=== PATIENT | male | born 1955 | race Caucasian/White ===

== ENCOUNTER 2018-01-28 14:29 | Inpatient (IN) | payer BC ==
[2018-01-28] MEDS ORDERED: ASPIRIN 81 MG CHEWABLE TABLETS PO ONE (14:34)
--- NOTE | 2018-01-28 14:34 | PDOC ---
History of Present Illness - General History Source: Patient Exam Limitations: No Limitations <Nathaly Manzo - Last Filed: 01/28/18 17:37> <Marcio Matt - Last Filed: 01/28/18 17:48> - General Chief Complaint: Chest Pain Stated Complaint: CHEST HEAVINESS, DIFF BREATHING Time Seen by Provider: 01/28/18 14:34 - History of Present Illness Initial Comments: 01/28/18 14:54 The patient is a 62 year old male, with a significant past medical history of hyperlipidemia, colitis, coronary artery disease, quintuple bypass (1996), who presents to the emergency department via walk-in with, sudden onset of chest heaviness and shortness of breath beginning this morning. The patient states that upon waking up this morning he has been having progressively worsening shortness of breath and wheezing. The patient also reports diarrhea (non bloody) , rhinorrhea, and productive cough beginning suddenly this morning as well. The patient states his dyspnea is made worse with exertion and while lying down. He also states he is having trouble speaking in full sentences. The patient reports increased stressors at home as he states he is retired but has been recently taking care of his who broke her ankle. The patient reports his last stress test was approx. one year ago and states he follows with his doctors at [place] on a regular basis. He denies any recent travel or surgeries. He denies any chest pain or palpitations. He denies any recent swelling or calf tenderness. He denies any recent fevers, headache or dizziness. He denies any recent nausea, vomit, or constipation. Allergies: ciprofloxacin, penicillins Past surgical history: Quintuple bypass (1996) Social History: Former smoker quit ~25 years ago. (Marcio Matt) Past History <Nathaly Manzo - Last Filed: 01/28/18 17:37> <Marcio Matt - Last Filed: 01/28/18 17:48> - Past Medical History Allergies/Adverse Reactions: Allergies Allergy/AdvReac Type Severity Reaction Status Date / Time ciprofloxacin [From Cipro] Allergy Verified 01/28/18 14:33 Penicillins Allergy Verified 01/28/18 14:33 Home Medications: Ambulatory Orders Ascorbic Acid [Vitamin C] 1,000 mg PO DAILY 01/28/18 Aspirin [Aspirin EC] 81 mg PO DAILY 01/28/18 Cholecalciferol (Vitamin D3) [Vitamin D3] 1,000 unit PO DAILY 01/28/18 Cilostazol [Pletal -] 100 mg PO DAILY 01/28/18 Cyanocobalamin (Vitamin B-12) [Vitamin B12] 1,000 mcg PO DAILY 01/28/18 Fenofibrate Nanocrystallized [Tricor] 145 mg PO DAILY 01/28/18 Glucosa Guidry 2Kcl/Chondroitin Guidry [Glucosamine & Chondroitin Cap] 2 each PO DAILY 01/28/18 Isosorbide Mononitrate [Isosorbide Mononitrate ER] 120 mg PO DAILY 01/28/18 Melatonin 10 mg PO DAILY 01/28/18 Mesalamine [Lialda] 1.2 gm PO QID 01/28/18 Metformin HCl [Metformin HCl ER] 500 mg PO QID 01/28/18 Metoprolol Succinate [Toprol Xl] 100 mg PO BID 01/28/18 Multivit-Min/FA/Lycopen/Lutein [Centrum Silver Tablet] 1 each PO DAILY 01/28/18 Paroxetine HCl [Paxil] 10 mg PO DAILY 01/28/18 Pilocarpine HCl 7.5 mg PO QID 01/28/18 Quetiapine Fumarate [Seroquel -] 500 mg PO DAILY 01/28/18 Ranolazine [Ranexa] 500 mg PO BID 01/28/18 Rosuvastatin Calcium [Crestor] 40 mg PO DAILY 01/28/18 Welchol 625 mg PO ASDIR 01/28/18 Review of Systems <Nathaly Manzo - Last Filed: 01/28/18 17:37> <Marcio Matt - Last Filed: 01/28/18 17:48> - Review of Systems Comments:: 01/28/18 14:55 GENERAL/CONSTITUTIONAL: No fever or chills. No weakness. HEAD, EYES, EARS, NOSE AND THROAT: No change in vision. No ear pain or discharge. No sore throat. CARDIOVASCULAR: (+) Shortness of breath. (+) Chest heaviness. No chest pain. No palpitations. RESPIRATORY: (+) Productive cough. (+) Wheezing. No hemoptysis. GASTROINTESTINAL: (+) Diarrhea. No nausea, vomiting, or constipation. GENITOURINARY: No dysuria, frequency, or change in urination. MUSCULOSKELETAL: No joint or muscle swelling or pain. No neck or back pain. SKIN: No rash NEUROLOGIC: No headache, vertigo, loss of consciousness, or change in strength/ sensation. ENDOCRINE: No increased thirst. No abnormal weight change. HEMATOLOGIC/LYMPHATIC: No anemia, easy bleeding, or history of blood clots. ALLERGIC/IMMUNOLOGIC: No hives or skin allergy. (Marcio Matt) *Physical Exam <Nathaly Manzo - Last Filed: 01/28/18 17:37> <Marcio Matt - Last Filed: 01/28/18 17:48> - Vital Signs Last Vital Signs Temp Pulse Resp BP Pulse Ox 98.6 F 88 28 H 166/94 88 L 01/28/18 14:30 01/28/18 14:30 01/28/18 14:30 01/28/18 14:30 01/28/18 14:30 - Physical Exam Comments: 01/28/18 15:06 GENERAL: (+) Mild respiratory distress. Awake, alert, and fully oriented. HEAD: No signs of trauma EYES: PERRLA, EOMI, sclera anicteric, conjunctiva clear ENT: (+) Hard of hearing. Auricles normal inspection, nares patent, oropharynx clear without exudates. Moist mucosa NECK: Normal ROM, supple, no lymphadenopathy, JVD, or masses LUNGS: (+) Coughing during exam. (+) Inspiratory and expiratory wheezing diffusely throughout. (+) Rhonchi diffusely throughout. HEART: Regular rate and rhythm, normal S1 and S2, no murmurs, rubs or gallops ABDOMEN: Soft, nontender, normoactive bowel sounds. No guarding, no rebound. No masses EXTREMITIES: No lower extremity edema. Normal range of motion. No clubbing or cyanosis. No cords, erythema, or tenderness NEUROLOGICAL: Cranial nerves II through XII grossly intact. Normal speech, normal gait SKIN: Warm, Dry, normal turgor, no rashes or lesions noted. (Marcio Matt) ED Treatment Course - LABORATORY CBC & Chemistry Diagram: 01/28/18 15:08 01/28/18 15:53 <Nathaly Manzo - Last Filed: 01/28/18 17:37> - LABORATORY CBC & Chemistry Diagram: 01/28/18 15:08 01/28/18 15:53 <Marcio Matt - Last Filed: 01/28/18 17:48> - ADDITIONAL ORDERS Additional order review: Laboratory Results 01/28/18 01/28/18 01/28/18 15:58 15:53 15:53 PT with INR 13.1 H INR 1.17 Sodium 136 Potassium 4.2 Chloride 105 Carbon Dioxide 28 Anion Gap 3 L BUN 18 Creatinine 1.0 Creat Clearance w eGFR > 60 Random Glucose 124 H Calcium 8.8 Magnesium Total Bilirubin 0.5 AST 35 ALT 34 Alkaline Phosphatase 39 Troponin I 0.10 H B-Natriuretic Peptide 248.74 H Total Protein 7.8 Albumin 4.2 01/28/18 01/28/18 01/28/18 15:08 15:08 15:08 PT with INR Cancelled INR Cancelled Sodium Cancelled Potassium Cancelled Chloride Cancelled Carbon Dioxide Cancelled Anion Gap Cancelled BUN Cancelled Creatinine Cancelled Creat Clearance w eGFR Cancelled Random Glucose Cancelled Calcium Cancelled Magnesium Cancelled Total Bilirubin Cancelled AST Cancelled ALT Cancelled Alkaline Phosphatase Cancelled Troponin I Cancelled B-Natriuretic Peptide Cancelled Total Protein Cancelled Albumin Cancelled 01/28/18 15:08 RBC 4.78 MCV 87.3 MCHC 33.7 RDW 14.4 MPV 8.2 Neutrophils % 75.3 Lymphocytes % 10.6 Monocytes % 8.5 Eosinophils % 4.3 Basophils % 1.3 - RADIOLOGY Radiograph Interpretation: 01/28/18 17:47 EXAM: CT chest without contrast HISTORY: SOB, hypoxic COMPARISON: None. FINDINGS: There is no pneumothorax. No infiltrate is seen. There is no pleural effusion. There is prior median sternotomy. There is prior CABG. Heart size is top normal. Extensive coronary artery calcification is noted. The thoracic aorta is mildly calcified and tortuous. There are scattered mediastinal lymph nodes. There is hepatic steatosis. The gallbladder is distended. Calcified gallstones are noted in the dependent portion of the gallbladder lumen. Reported by Woodrow Baltazar MD (Marcio Matt) - Medications Given in the ED: ED Medications Discontinued Medications Generic Name Dose Route Start Last Admin Trade Name Freq PRN Reason Stop Dose Admin Albuterol/Ipratropium 1 amp 01/28/18 14:42 01/28/18 14:50 Duoneb - NEB 01/28/18 14:43 1 amp ONCE ONE Administration Albuterol/Ipratropium 1 amp 01/28/18 14:43 01/28/18 14:50 Duoneb - NEB 01/28/18 14:44 1 amp ONCE ONE Administration Aspirin 162 mg 01/28/18 14:34 01/28/18 14:45 Asa - PO 01/28/18 14:35 162 mg ONCE ONE Administration Azithromycin 500 mg/ Dextrose 250 mls @ 250 mls/hr 01/28/18 16:01 01/28/18 16 :10 IVPB 01/28/18 17:00 250 mls/hr ONCE ONE Administration Methylprednisolone Sodium Succinate 125 mg 01/28/18 15:47 01/28/18 15:59 Solu-Medrol - IVPB 01/28/18 15:48 125 mg ONCE ONE Administration Medical Decision Making <Nathaly Manzo - Last Filed: 01/28/18 17:37> <Marcio Matt - Last Filed: 01/28/18 17:48> - Medical Decision Making 01/28/18 14:52 01/28/18 14:50 Mr. Cervantes is a 62-year-old male with a history of coronary artery disease status post quadruple bypass, borderline diabetes who presents emergency department with a complaint of chest heaviness, shortness of breath. Patient states he was in his usual state of health until this morning when he noticed shortness of breath, wheezing. He denies chest pain. He denies palpitations. He denies Lower extremity edema, recent travel. He is no history of asthma or COPD. States that he developed profound wheezing, had difficulty catching his breath. Patient notes that with any exertion he is short of breath, and if he lays back he is short of breath. He denies fevers or chills. Past medical history: As above Past surgical history: Medications: Please see [facility] ALLERGIES: Cipro, penicillin Social: Denies tobacco use (quit greater than 20 years ago) disease, no drug use. 01/28/18 14:52 Selected Entries 01/28/18 14:30 Temperature 98.6 F Pulse Rate 88 Respiratory 28 H Rate Blood Pressure 166/94 O2 Sat by Pulse 88 L Oximetry (%) Patient is notably Tae Araseli neck, hypoxic. Patient appears winded while talking. He has a cough. Regular rate and rhythm The patient has a respiratory and asked which we wheezing throughout all lung hastings No abdominal tenderness to palpation No lower extremity edema Differential diagnosis includes but is not limited to: Bronchitis, pneumonia, reactive airway disease, congestive heart failure, atypical presentation of ACS, unlikely pericarditis, unlikely pulmonary embolism Do: Labs, EKG, portable chest x-ray, consider CT scan. Will give duo nebs, consider Solu-Medrol if this is not heart failure. If heart failure Will give Lasix. Anticipate admission EKG: Sinus rhythm, rate of 80 bpm, axis is normal, intervals are normal, there is a right bundle branch block There is no old EKG for comparison as this patient is treated at [place] 01/28/18 15:14 Pt s/p 1 neb Breathing re assessed Pt has inspiratory and expiratory wheezing 01/28/18 16:10 Patient states he feels much better after his nebs. He continues to have rhonchi, faint expiratory wheezing. Would like to CT. He cannot give IV contrast as patient is still actively wheezing. Will do CT without contrast to evaluate for pneumonia which is not visible on x- ray 01/28/18 16:51 Laboratory Tests 01/28/18 01/28/18 15:53 15:53 Sodium 136 Potassium 4.2 Chloride 105 BUN 18 Creatinine 1.0 Random Glucose 124 H Troponin I 0.10 H 01/28/18 17:[address] Thomas He will admit this patient Will place on Tele at [facility] Clinical impression: Bronchitis, initial presentation Reactive airways disease, initial presentation Indeterminate Troponin, initial presentation (Nathaly Manzo) 01/28/18 17:[address] Dixon at 5:33 pm. Pending call back. (Marcio Matt) *DC/Admit/Observation/Transfer - Discharge Dispostion Admit: Yes <Nathaly Manzo - Last Filed: 01/28/18 17:37> <Marcio Matt - Last Filed: 01/28/18 17:48> Diagnosis at time of Disposition: Bronchitis, Reactive airway disease - Discharge Dispostion Condition at time of disposition: Stable - Attestations Scribe Attestion: 01/28/18 15:08 Documentation prepared by Marcio Matt, acting as medical art therapist for Nathaly Manzo MD. (Marcio Matt)
[2018-01-28] MEDS ORDERED: ALBUTEROL SO4 2.5/IPRATROPIUM 0.5 INH SOL 3 ML VIAL.NEB. NEB ONE ×4 (14:42→15:18)
[2018-01-28] MEDS ORDERED: ASPIRIN 81 MG CHEWABLE TABLETS ONE (14:45)
[2018-01-28 15:16] LABS: BASO % 1.3 % (0-2.0); EOS % 4.3 % (0-4.5); HEMATOCRIT 41.7 % (35.4-49); HEMOGLOBIN 14.1 GM/dl (11.7-16.9); LYMPH % 10.6 % (8-40); MCH 29.4 pg (25.7-33.7); MCHC 33.7 g/dl (32.0-35.9); MEAN CELL VOLUME 87.3 fl (80-96); MEAN PLT VOLUME 8.2 fl (7.5-11.1); MONO % 8.5 % (3.8-10.2); NEUT % 75.3 % (42.8-82.8); PLATELET COUNT 274 K/MM3 (134-434); RBC 4.78 M/mm3 (4.00-5.60); RDW 14.4 % (11.9-15.9); WHITE BLOOD COUNT 10.5 K/mm3 (4.0-10.8)
[2018-01-28] MEDS ORDERED: methylPREDNISolone NA SUCC 125 MG/2 ML VIAL IVPB ONE (15:47)
[2018-01-28] MEDS ORDERED: methylPREDNISolone NA SUCC 125 MG/2 ML VIAL ONE (15:55)
[2018-01-28] MEDS ORDERED: AZITHROMYCIN IVPB 500 MG in DEXTROSE 5%-WATER - 250 ML IVPB ONE (16:01)
[2018-01-28] MEDS ORDERED: AZITHROMYCIN 500 MG VIAL IVPB ONE (16:02)
[2018-01-28 16:24] LABS: INR 1.17 (0.82-1.09); PROTHROMBIN TIME (PATIENT) 13.1 SEC (10.2-13.0)
[2018-01-28 16:28] LABS: ALBUMIN 4.2 g/dl (3.5-5.0); ALK PHOS 39 U/L (32-92); ANION GAP 3 (8-16); BILIRUBIN,TOTAL 0.5 mg/dl (0.2-1.0); BLOOD UREA NITROGEN 18 mg/dl (7-18); CALCIUM 8.8 mg/dl (8.4-10.2); CHLORIDE 105 mmol/L (98-107); CO2 28 mmol/L (22-28); GLUCOSE,RANDOM 124 mg/dl (74-106); POTASSIUM 4.2 mmol/L (3.5-5.1); SGOT/AST 35 U/L (10-42); SGPT/ALT 34 U/L (10-40); SODIUM 136 mmol/L (136-145); TOT PROT 7.8 g/dl (6.4-8.3)
[2018-01-28 17:43] LABS: N-TERMINAL BNP 248.74 pg/ml (5-125)
--- NOTE | 2018-01-28 18:37 | EKG ---
Test Reason : Blood Pressure : / mmHG Vent. Rate : 088 BPM Atrial Rate : 088 BPM P-R Int : 182 ms QRS Dur : 148 ms QT Int : 398 ms P-R-T Axes : 054 081 039 degrees QTc Int : 481 ms NORMAL SINUS RHYTHM RIGHT BUNDLE BRANCH BLOCK ABNORMAL ECG NO PREVIOUS ECGS AVAILABLE Confirmed by SALLIE ROSE, SATYA ([id number]) on 01/28/2018 6:36:27 PM Referred By: ORTIZ GIRARD Confirmed By:SATYA RIZO MD
[2018-01-28] MEDS: OSELTAMIVIR PHOSPHATE 75 MG CAPSULE PO SCH (23:44)
[2018-01-29 00:33] VITALS: BMI 25.4
--- NOTE | 2018-01-29 00:43 | HP ---
CHIEF COMPLAINT: SOB, wheezing PCP: None HISTORY OF PRESENT ILLNESS: The pt is a 62 year old male with a significant PMH of bypass surgery in 1996, ulcerative colitis, hyperlipidemia, bipolar disorder, pre diabetes, PAD who presented to [facility] ED complaining of SOB, cough and wheezing that started suddenly early in the morning. He states that it got worse, was associated with lightheadedness, so he decided to come to ED. He is coughing up yellow sputum. The patient states his dyspnea is made worse with exertion and while lying down. Earlier today he also had several episodes of loose, non bloody bowel movements. He also states that his daughter had flu last week. The pt denies having chest pain, palpitations, LOC. He is compliant with taking his medications, doctors appointments but he doesn't remember last time he had ECHO. he denies nausea, vomiting, fever, chills. He denies muscle pain and sore throat. ER course was notable for: (1)troponin 01 (2)AZA, Ceftriaxone (3) PAST MEDICAL HISTORY: as above PAST SURGICAL HISTORY: bypass surgery Social History: Smoking:quit 25 years ago Alcohol:no Drugs: marijuana Family History: mother:heart disease father: leukemia brothers: heart disease Allergies ciprofloxacin [From Cipro] Allergy (Verified 01/28/18 14:33) Penicillins Allergy (Verified 01/28/18 14:33) HOME MEDICATIONS: Home Medications Medication Instructions Recorded Ascorbic Acid [Vitamin C] 1,000 mg PO DAILY 01/28/18 Aspirin [Aspirin EC] 81 mg PO DAILY 01/28/18 Cholecalciferol (Vitamin D3) 1,000 unit PO DAILY 01/28/18 [Vitamin D3] Cilostazol [Pletal -] 100 mg PO DAILY 01/28/18 Cyanocobalamin (Vitamin B-12) 1,000 mcg PO DAILY 01/28/18 [Vitamin B12] Fenofibrate Nanocrystallized 145 mg PO DAILY 01/28/18 [Tricor] Glucosa Guidry 2Kcl/Chondroitin Guidry 2 each PO DAILY 01/28/18 [Glucosamine & Chondroitin Cap] Isosorbide Mononitrate [Isosorbide 120 mg PO DAILY 01/28/18 Mononitrate ER] Melatonin 10 mg PO DAILY 01/28/18 Mesalamine [Lialda] 1.2 gm PO QID 01/28/18 Metformin HCl [Metformin HCl ER] 500 mg PO QID 01/28/18 Metoprolol Succinate [Toprol Xl] 100 mg PO BID 01/28/18 Multivit-Min/FA/Lycopen/Lutein 1 each PO DAILY 01/28/18 [Centrum Silver Tablet] Paroxetine HCl [Paxil] 10 mg PO DAILY 01/28/18 Pilocarpine HCl 7.5 mg PO QID 01/28/18 Quetiapine Fumarate [Seroquel -] 500 mg PO DAILY 01/28/18 Ranolazine [Ranexa] 500 mg PO BID 01/28/18 Rosuvastatin Calcium [Crestor] 40 mg PO DAILY 01/28/18 Welchol 625 mg PO ASDIR 01/28/18 REVIEW OF SYSTEMS CONSTITUTIONAL: Absent: fever, chills, diaphoresis, generalized weakness, malaise, loss of appetite, weight change HEENT: Absent: rhinorrhea, nasal congestion, throat pain, throat swelling, difficulty swallowing CARDIOVASCULAR: Absent: chest pain, syncope, palpitations, irregular heart rate, lightheadedness , peripheral edema RESPIRATORY: wheezing,shortness of breath, dyspnea Absent: cough, with exertion, orthopnea GASTROINTESTINAL: Absent: abdominal pain, abdominal distension, nausea, vomiting, diarrhea, constipation, melena, hematochezia GENITOURINARY: Absent: dysuria, frequency, urgency, hesitancy, hematuria, flank pain, genital pain MUSCULOSKELETAL: Absent: myalgia, arthralgia, joint swelling, back pain, neck pain SKIN: Absent: rash, itching, pallor HEMATOLOGIC/IMMUNOLOGIC: Absent: easy bleeding, easy bruising, lymphadenopathy, frequent infections ENDOCRINE: Absent: unexplained weight gain, unexplained weight loss NEUROLOGIC: Absent: headache, focal weakness or paresthesias, dizziness PSYCHIATRIC: Absent: anxiety, depression, suicidal or homicidal ideation, hallucinations. PHYSICAL EXAMINATION Vital Signs - 24 hr 01/28/18 01/28/18 01/28/18 14:30 14:35 16:00 Temperature 98.6 F 98.2 F Pulse Rate 88 89 Pulse Rate [ 85 Left Apical] Respiratory 28 H 30 H Rate Blood Pressure 166/94 Blood Pressure 139/65 [Right Arm] O2 Sat by Pulse 88 L 96 97 Oximetry (%) 01/28/18 01/28/18 18:25 19:00 Temperature 98.1 F 98.2 F Pulse Rate 84 Pulse Rate [ 84 Left Apical] Respiratory 28 H 29 H Rate Blood Pressure 139/75 Blood Pressure 143/68 [Right Arm] O2 Sat by Pulse 97 Oximetry (%) GENERAL: Awake, alert, and fully oriented, in no acute distress, sitting on bed on 2 L of NC. HEAD: Normal with no signs of trauma. EYES: Pupils equal, round and reactive to light, extraocular movements intact, sclera anicteric, conjunctiva clear. EARS, NOSE, THROAT: Ears normal, nares patent, oropharynx clear without exudates. NECK: Normal range of motion, supple without lymphadenopathy, JVD, or masses. LUNGS: Breath sounds equal, occasional wheezes bilaterally, rhonchi, no crackles. No accessory muscle use. HEART: Regular rate and rhythm, normal S1 and S2 without murmur, rub or gallop. ABDOMEN: Soft, nontender, not distended, normoactive bowel sounds, no guarding, no rebound, no masses. MUSCULOSKELETAL: Normal range of motion at all joints. No bony deformities or tenderness. No CVA tenderness. UPPER EXTREMITIES: 2+ pulses, warm, no cyanosis. No clubbing. No peripheral edema. LOWER EXTREMITIES: 2+ pulses, warm. No calf tenderness. No peripheral edema. NEUROLOGICAL: Normal speech, no facial asymmetry., tremor in upper extremities. PSYCHIATRIC: Cooperative. Good eye contact. Anxious. SKIN: Warm, dry, normal turgor, no rashes or lesions noted. Laboratory Results - last 24 hr 01/28/18 01/28/18 01/28/18 15:08 15:08 15:08 WBC 10.5 RBC 4.78 Hgb 14.1 Hct 41.7 MCV 87.3 MCH 29.4 MCHC 33.7 RDW 14.4 Plt Count 274 MPV 8.2 Neutrophils % 75.3 Lymphocytes % 10.6 Monocytes % 8.5 Eosinophils % 4.3 Basophils % 1.3 PT with INR Cancelled INR Cancelled Sodium Cancelled Potassium Cancelled Chloride Cancelled Carbon Dioxide Cancelled Anion Gap Cancelled BUN Cancelled Creatinine Cancelled Creat Clearance w eGFR Cancelled Random Glucose Cancelled Lactic Acid Calcium Cancelled Magnesium Cancelled Total Bilirubin Cancelled AST Cancelled ALT Cancelled Alkaline Phosphatase Cancelled Troponin I B-Natriuretic Peptide Cancelled Total Protein Cancelled Albumin Cancelled 01/28/18 01/28/18 01/28/18 15:08 15:30 15:53 WBC RBC Hgb Hct MCV MCH MCHC RDW Plt Count MPV Neutrophils % Lymphocytes % Monocytes % Eosinophils % Basophils % PT with INR INR Sodium 136 Potassium 4.2 Chloride 105 Carbon Dioxide 28 Anion Gap 3 L BUN 18 Creatinine 1.0 Creat Clearance w eGFR > 60 Random Glucose 124 H Lactic Acid 2.0 Calcium 8.8 Magnesium Total Bilirubin 0.5 AST 35 ALT 34 Alkaline Phosphatase 39 Troponin I Cancelled B-Natriuretic Peptide 248.74 H Total Protein 7.8 Albumin 4.2 01/28/18 01/28/18 15:53 15:58 WBC RBC Hgb Hct MCV MCH MCHC RDW Plt Count MPV Neutrophils % Lymphocytes % Monocytes % Eosinophils % Basophils % PT with INR 13.1 H INR 1.17 Sodium Potassium Chloride Carbon Dioxide Anion Gap BUN Creatinine Creat Clearance w eGFR Random Glucose Lactic Acid Calcium Magnesium Total Bilirubin AST ALT Alkaline Phosphatase Troponin I 0.10 H B-Natriuretic Peptide Total Protein Albumin ASSESSMENT/PLAN: The pt is a 62 year old male with a significant PMH of bypass surgery in 1996, ulcerative colitis, hyperlipidemia, bipolar disorder, pre diabetes who presented to [facility] ED complaining of SOB, cough and wheezing that started suddenly early in the morning. He is admitted to tele. SOB and wheezing: -possibly URI, bronchitis, pneumonia but ACS, CHF exacerbation need to be rule out -CT negative for acute pathology, infiltrates -flu swab -Legionella urine ag -cont Azithromycin started in ED -Tamiflu -oxygen supplementation, ASA given in ED -repeated EKG didn't revealed any changes -f/u troponins -cardiac monitoring -solu medrol 125 mg given in ED, no need to continue -ECHO ordered, no fluids ordered -Dr Dixon-Eyelet Riveter consulted -HEART score 4 CAD: continue home meds: Isosorbide mononitrate, Ranexa, ASA, Metoprolol HDL: -continue Crestor Bipolar disease: -cont home meds PAD: -cont Cilostazol pre diabetes: -HgA1c ordered -f/u sugars -hold Metformin F/E/N: no/no changes/low Na DVT PPX: heparin sq and scds Dispo: tele Problem List - Problem (1) CAD (coronary artery disease) Code(s): I25.10 - ATHSCL HEART DISEASE OF [place] CORONARY ARTERY W/O ANG PCTRS (2) Dyslipidemia (high LDL; low HDL) Code(s): E78.5 - HYPERLIPIDEMIA, UNSPECIFIED (3) PAD (peripheral artery disease) Code(s): I73.9 - PERIPHERAL VASCULAR DISEASE, UNSPECIFIED (4) Bronchitis Code(s): J40 - BRONCHITIS, NOT SPECIFIED ACUTE OR CHRONIC (5) Reactive airway disease Code(s): J45.909 - UNSPECIFIED ASTHMA, UNCOMPLICATED Visit type - Emergency Visit Emergency Visit: Yes ED Registration Date: 01/28/18 Care time: The patient presented to the Emergency Department on the above date and was hospitalized for further evaluation of their emergent condition. - New Patient This patient is new to me today: Yes Date on this admission: 01/29/18 - Critical Care Critical Care patient: No Hospitalist Screening - Colonoscopy Questionnaire Colonoscopy Questionnaire: Colonoscopy Questionnaire - Patient: 50 - 75 years old and never had a screening colonoscopy: No History of colon or rectal polyps, or CA: No History of IBD, Crohn's disease or UC: Yes History of abdominal radiation therapy as a child: No - Relative: 1 with colon or rectal CA, or polyps at age 60 or younger: No Colon or rectal CA diagnosed at age 45 or younger: No Multiple relatives with colon or rectal CA: No - Outcome: Screening Result: Positive Screen
--- NOTE | 2018-01-29 03:29 | PN ---
Teaching Attending Note Name of Resident: Jamilah Zafar ATTENDING PHYSICIAN STATEMENT I saw and evaluated the patient. I reviewed the resident's note and discussed the case with the resident. I agree with the resident's findings and plan as documented. SUBJECTIVE: 62 y/o male presented with chest pain and SOB on exertion OBJECTIVE: AAOX3 s1 and S2 RRR abdomen soft non-tender lungs CTA ASSESSMENT AND PLAN: 62 y/o male patient with hx of CAD s/p CABG, HTN, DL, DM, presented with worsening exertional chest discomfort and SOB patient admitted to the observation for ACS r/o AR - patient has typical chest pain symptoms plan: admit to tele consult cardiology trend troponin trend ECG c/w aspirin c/w home medication obtain echocardiogram Angina: c/w Isosorbide mononitrate, Ranexa, ASA, Metoprolol Dyslipidemia obtain lipid profile continue with rosuvastatin obtain TSH
[2018-01-29] MEDS ORDERED: PT OWN MED DRAWER 7, Y5N ONE (09:15)
[2018-01-29] MEDS: AZITHROMYCIN IVPB 500 MG in DEXTROSE 5%-WATER - 250 ML IVPB SCH (09:42)
[2018-01-29] MEDS: RANOLAZINE E.R. 500 MG TABLET (FP) PO SCH ×2 (09:43→21:32)
[2018-01-29] MEDS: HEPARIN NA (PORCINE) 5,000 UNITS/ML 1ML VIAL SQ SCH ×2 (09:43→21:32)
[2018-01-29] MEDS: ROSUVASTATIN CA 20 MG TABLET (FP) PO SCH (09:43)
[2018-01-29] MEDS: PARoxetine HCL 10 MG TABLET (FP) PO SCH (09:43)
[2018-01-29] MEDS: ISOSORBIDE MONONITRATE 60 MG TAB.SR.24H (FP) PO SCH (09:43)
[2018-01-29] MEDS: ASPIRIN COATED 81 MG TABLET.EC PO SCH (09:44)
[2018-01-29] MEDS: OSELTAMIVIR PHOSPHATE 75 MG CAPSULE PO SCH (09:44)
[2018-01-29] MEDS ORDERED: PATIENT'S OWN MEDICATION (NON-FORMULARY) (Mesalamine [Lialda] 1.2 GM) PO SCH (10:00)
[2018-01-29 10:09] LABS: BASO % 0.3 % (0-2.0); EOS % 0.1 % (0-4.5); HEMATOCRIT 41.3 % (35.4-49); HEMOGLOBIN 13.5 GM/dL (11.7-16.9); LYMPH % 15.8 % (8-40); MCH 29.3 pg (25.7-33.7); MCHC 32.7 g/dl (32.0-35.9); MEAN CELL VOLUME 89.4 fl (80-96); MEAN PLT VOLUME 8.5 fl (7.5-11.1); MONO % 11.6 % (3.8-10.2); NEUT % 72.2 % (42.8-82.8); PLATELET COUNT 291 K/MM3 (134-434); RBC 4.62 M/mm3 (4.00-5.60); RDW 15.2 % (11.9-15.9)
[2018-01-29] MEDS ORDERED: ALBUTEROL SO4 0.083% IH SOL 2.5 MG/3 ML VIAL.NEB. NEB PRN (10:25)
--- NOTE | 2018-01-29 10:54 | CON.CARD ---
Cardiology Consult (text) - Consultation Consultation Note: cc: sob, wheeze, cough hpi: 62 m hx cad s/p cabg (1996), pci approx 2007 (no hx mi, done for cp), hld , htn, here with 1 day of sob/wheeze/cough. No cp, palps, dizzy, loc, pnd, orthopnea, le edema. Current sxs different then prior cad sxs and have improved after nebs. Sees cardio at [facility]. pmh: per hpi psh: cabg social: ex tob fam: no premature cad ros: per hpi; no nvd, ojhnson, vision changes, wt loss, gib, hematuria, dysuria meds: Home Medications Medication Instructions Recorded Ascorbic Acid [Vitamin C] 1,000 mg PO DAILY 01/28/18 Aspirin [Aspirin EC] 81 mg PO DAILY 01/28/18 Cholecalciferol (Vitamin D3) 1,000 unit PO DAILY 01/28/18 [Vitamin D3] Cilostazol [Pletal -] 100 mg PO DAILY 01/28/18 Cyanocobalamin (Vitamin B-12) 1,000 mcg PO DAILY 01/28/18 [Vitamin B12] Fenofibrate Nanocrystallized 145 mg PO DAILY 01/28/18 [Tricor] Glucosa Guidry 2Kcl/Chondroitin Guidry 2 each PO DAILY 01/28/18 [Glucosamine & Chondroitin Cap] Isosorbide Mononitrate [Isosorbide 120 mg PO DAILY 01/28/18 Mononitrate ER] Melatonin 10 mg PO DAILY 01/28/18 Mesalamine [Lialda] 1.2 gm PO QID 01/28/18 Metformin HCl [Metformin HCl ER] 500 mg PO QID 01/28/18 Metoprolol Succinate [Toprol Xl] 100 mg PO BID 01/28/18 Multivit-Min/FA/Lycopen/Lutein 1 each PO DAILY 01/28/18 [Centrum Silver Tablet] Paroxetine HCl [Paxil] 10 mg PO DAILY 01/28/18 Pilocarpine HCl 7.5 mg PO QID 01/28/18 Quetiapine Fumarate [Seroquel -] 500 mg PO DAILY 01/28/18 Ranolazine [Ranexa] 500 mg PO BID 01/28/18 Rosuvastatin Calcium [Crestor] 40 mg PO DAILY 01/28/18 Welchol 625 mg PO ASDIR 01/28/18 pe: Vital Signs Period Temp Pulse Resp BP Sys/Andino Pulse Ox Last 24 Hr 98 F-99.1 F 84-90 20-30 134-166/65-94 88-97 nad no jvd rrr s1s2 no mrg diff exp wheezes, nl eff aaox3 no le e/c/c abd nt nd pos bs no jaundice diaphoresis pos dp pt no carotid bruits Laboratory Last Values WBC 8.0 K/mm3 (4.0-10.0) 01/29/18 06:30 RBC 4.62 M/mm3 (4.00-5.60) 01/29/18 06:30 Hgb 13.5 GM/dL (11.7-16.9) 01/29/18 06:30 Hct 41.3 % (35.4-49) 01/29/18 06:30 MCV 89.4 fl (80-96) 01/29/18 06:30 MCH 29.3 pg (25.7-33.7) 01/29/18 06:30 MCHC 32.7 g/dl (32.0-35.9) 01/29/18 06:30 RDW 15.2 % (11.9-15.9) 01/29/18 06:30 Plt Count 291 K/MM3 (134-434) 01/29/18 06:30 MPV 8.5 fl (7.5-11.1) 01/29/18 06:30 Neutrophils % 72.2 % (42.8-82.8) 01/29/18 06:30 Lymphocytes % 15.8 % (8-40) 01/29/18 06:30 Monocytes % 11.6 % (3.8-10.2) H 01/29/18 06:30 Eosinophils % 0.1 % (0-4.5) 01/29/18 06:30 Basophils % 0.3 % (0-2.0) 01/29/18 06:30 PT with INR 13.1 SEC (10.2-13.0) H 01/28/18 15:58 INR 1.17 (0.82-1.09) 01/28/18 15:58 Sodium 136 mmol/L (136-145) 01/28/18 15:53 Potassium 4.2 mmol/L (3.5-5.1) 01/28/18 15:53 Chloride 105 mmol/L (98-107) 01/28/18 15:53 Carbon Dioxide 28 mmol/L (22-28) 01/28/18 15:53 Anion Gap 3 (8-16) L 01/28/18 15:53 BUN 18 mg/dl (7-18) 01/28/18 15:53 Creatinine 1.0 mg/dl (0.6-1.3) 01/28/18 15:53 Creat Clearance w eGFR > 60 (>60) 01/28/18 15:53 Random Glucose 124 mg/dl (74-106) H 01/28/18 15:53 Hemoglobin A1c % 6.3 % (4.8-6.0) H 01/29/18 06:30 Lactic Acid 2.0 mmol/L (0.0-2.0) 01/28/18 15:30 Calcium 8.8 mg/dl (8.4-10.2) 01/28/18 15:53 Magnesium Cancelled 01/28/18 15:08 Total Bilirubin 0.5 mg/dl (0.2-1.0) 01/28/18 15:53 AST 35 U/L (10-42) 01/28/18 15:53 ALT 34 U/L (10-40) 01/28/18 15:53 Alkaline Phosphatase 39 U/L (32-92) 01/28/18 15:53 Troponin I 0.11 ng/ml (0.00-0.05) H 01/28/18 23:30 B-Natriuretic Peptide 248.74 pg/ml (5-125) H 01/28/18 15:53 Total Protein 7.8 g/dl (6.4-8.3) 01/28/18 15:53 Albumin 4.2 g/dl (3.5-5.0) 01/28/18 15:53 TSH 1.33 uIU/ml (0.358-3.74) 01/29/18 06:30 cxr: clear lungs ecg: sr, rbbb tele: sr a/p: 62 m hx cad s/p cabg (1996), pci approx 2007 (no hx mi, done for cp), hld , htn, here with 1 day of sob/wheeze/cough. sob, cough, wheeze: -no signs chf. ce's negative, no signs acs. current sxs different then his prior cad sxs and have resolved with nebs so seem more URI related. -check echo cad: -as above -stable, no angina -pt reports nl stress test 1 year ago -cont home asa, bb, imdur, ranexa, statin hld: -cont statin htn: -cont home meds
[2018-01-29 11:19] LABS: ANION GAP 8 (8-16); BLOOD UREA NITROGEN 16 mg/dL (7-18); CALCIUM 9.2 mg/dL (8.5-10.1); CHLORIDE 108 mmol/L (98-107); CHOLESTEROL 117 mg/dL (50-200); CO2 26 mmol/L (21-32); CREATININE 0.9 mg/dL (0.7-1.3); GLUCOSE,RANDOM 106 mg/dL (74-106); MAGNESIUM 2.1 mg/dL (1.8-2.4); PHOSPHOROUS 2.4 mg/dL (2.5-4.9); POTASSIUM 4.4 mmol/L (3.5-5.1); SGOT/AST 27 U/L (15-37); SGPT/ALT 37 U/L (12-78); SODIUM 142 mmol/L (136-145); TRIGLYCERIDES 111 mg/dL (35-160)
[2018-01-29 11:21] LABS: ALK PHOS 45 U/L (45-117); BILIRUBIN,TOTAL 0.2 mg/dL (0.2-1.0); HDL CHOLESTEROL 46 mg/dL (40-60); LDL CHOLESTEROL (ONLY SJRH) 64 mg/dL (5-100)
[2018-01-29] MEDS: ALBUTEROL SO4 0.083% IH SOL 2.5 MG/3 ML VIAL.NEB. NEB SCH ×3 (11:28→20:30)
--- NOTE | 2018-01-29 16:15 | PN ---
Teaching Attending Note Name of Resident: Sami Warren SUBJECTIVE: Patient seen and examined. reports coming with shortness of breath and wheezing yesterday but denies having any chest pain. had improved symptoms in the ED yesterday, but recurrent wheezing today. Also with runny nose. Prior smoker, quit 25 years ago. OBJECTIVE: Vital Signs Period Temp Pulse Resp BP Sys/Andino Pulse Ox Last 24 Hr 98 F-99.1 F 74-90 20-29 113-151/68-86 97-97 Intake & Output 01/26/18 01/27/18 01/28/18 01/29/18 23:59 23:59 23:59 23:59 Intake Total 200 Output Total 200 Balance 0 Weight 187 lb 12.8 oz 185 lb 6 oz General: lying in bed in no acute distress, no use of accessory muscles of respiration Chest: positive air entry, expirotory wheezing scattered no rales Neck: no JVD appreciated Abdomen: soft, NT, Nd, positive bowel sounds CVS:S1S2 regular Extremities: no edema Home Medication List Medication Instructions Recorded Confirmed Type Ascorbic Acid [Vitamin C] 1,000 mg PO DAILY 01/28/18 01/28/18 History Aspirin [Aspirin EC] 81 mg PO DAILY 01/28/18 01/28/18 History Cholecalciferol (Vitamin D3) 1,000 unit PO DAILY 01/28/18 01/28/18 History [Vitamin D3] Cilostazol [Pletal -] 100 mg PO DAILY 01/28/18 01/28/18 History Cyanocobalamin (Vitamin B-12) 1,000 mcg PO DAILY 01/28/18 01/28/18 History [Vitamin B12] Fenofibrate Nanocrystallized 145 mg PO DAILY 01/28/18 01/28/18 History [Tricor] Glucosa Guidry 2Kcl/Chondroitin Guidry 2 each PO DAILY 01/28/18 01/28/18 History [Glucosamine & Chondroitin Cap] Isosorbide Mononitrate [Isosorbide 120 mg PO DAILY 01/28/18 01/28/18 History Mononitrate ER] Melatonin 10 mg PO DAILY 01/28/18 01/28/18 History Mesalamine [Lialda] 1.2 gm PO QID 01/28/18 01/28/18 History Metformin HCl [Metformin HCl ER] 500 mg PO QID 01/28/18 01/28/18 History Metoprolol Succinate [Toprol Xl] 100 mg PO BID 01/28/18 01/28/18 History Multivit-Min/FA/Lycopen/Lutein 1 each PO DAILY 01/28/18 01/28/18 History [Centrum Silver Tablet] Paroxetine HCl [Paxil] 10 mg PO DAILY 01/28/18 01/28/18 History Pilocarpine HCl 7.5 mg PO QID 01/28/18 01/28/18 History Quetiapine Fumarate [Seroquel -] 500 mg PO DAILY 01/28/18 01/28/18 History Ranolazine [Ranexa] 500 mg PO BID 01/28/18 01/28/18 History Rosuvastatin Calcium [Crestor] 40 mg PO DAILY 01/28/18 01/28/18 History Welchol 625 mg PO ASDIR 01/28/18 History Active Medications Generic Name Dose Route Start Last Admin Trade Name Freq PRN Reason Stop Dose Admin Albuterol Sulfate 1 amp 01/29/18 10:25 Ventolin 0.083% Nebulizer Soln - NEB Q4H PRN SHORT OF BREATH/WHEEZING Albuterol Sulfate 1 amp 01/29/18 12:00 01/29/18 11:28 Ventolin 0.083% Nebulizer Soln - NEB 1 amp RQID HAYES Administration Aspirin 81 mg 01/29/18 10:00 01/29/18 09:44 Ecotrin - PO 81 mg DAILY HAYES Administration Heparin Sodium (Porcine) 5,000 unit 01/29/18 10:00 01/29/18 09:43 Heparin - SQ 5,000 unit BID HAYES Administration Azithromycin 500 mg/ Dextrose 250 mls @ 250 mls/hr 01/29/18 10:00 01/29/18 09 :42 IVPB 250 mls/hr DAILY HAYES Administration Isosorbide Mononitrate 120 mg 01/29/18 10:00 01/29/18 09:43 Imdur - PO 120 mg DAILY HAYES Administration Metoprolol Succinate 100 mg 01/29/18 10:00 01/29/18 09:44 Toprol Xl - PO 100 mg BID HAYES Administration Non-Formulary Medication 1.2 gm 01/29/18 10:00 Mesalamine [Lialda] PO QID HAYES Oseltamivir Phosphate 75 mg 01/28/18 22:15 01/29/18 09:44 Tamiflu - PO 02/02/18 22:14 75 mg BID HAYES Administration Paroxetine HCl 10 mg 01/29/18 10:00 01/29/18 09:43 Paxil - PO 10 mg DAILY HAYES Administration Prednisone 40 mg 01/29/18 16:15 Deltasone - PO DAILY HAYES Ranolazine 500 mg 01/29/18 10:00 01/29/18 09:43 Ranexa - PO 500 mg BID HAYES Administration Rosuvastatin Calcium 40 mg 01/29/18 10:00 01/29/18 09:43 Crestor - PO 40 mg DAILY HAYES Administration Laboratory Results - last 24 hr 01/28/18 01/28/18 01/28/18 15:08 15:08 15:08 WBC RBC Hgb Hct MCV MCH MCHC RDW Plt Count MPV Neutrophils % Lymphocytes % Monocytes % Eosinophils % Basophils % PT with INR Cancelled INR Cancelled Sodium Cancelled Potassium Cancelled Chloride Cancelled Carbon Dioxide Cancelled Anion Gap Cancelled BUN Cancelled Creatinine Cancelled Creat Clearance w eGFR Cancelled Random Glucose Cancelled Hemoglobin A1c % Lactic Acid Calcium Cancelled Phosphorus Magnesium Cancelled Total Bilirubin Cancelled AST Cancelled ALT Cancelled Alkaline Phosphatase Cancelled Troponin I Cancelled B-Natriuretic Peptide Cancelled Total Protein Cancelled Albumin Cancelled Triglycerides Cholesterol Total LDL Cholesterol HDL Cholesterol TSH 01/28/18 01/28/18 01/28/18 15:30 15:53 15:53 WBC RBC Hgb Hct MCV MCH MCHC RDW Plt Count MPV Neutrophils % Lymphocytes % Monocytes % Eosinophils % Basophils % PT with INR INR Sodium 136 Potassium 4.2 Chloride 105 Carbon Dioxide 28 Anion Gap 3 L BUN 18 Creatinine 1.0 Creat Clearance w eGFR > 60 Random Glucose 124 H Hemoglobin A1c % Lactic Acid 2.0 Calcium 8.8 Phosphorus Magnesium Total Bilirubin 0.5 AST 35 ALT 34 Alkaline Phosphatase 39 Troponin I 0.10 H B-Natriuretic Peptide 248.74 H Total Protein 7.8 Albumin 4.2 Triglycerides Cholesterol Total LDL Cholesterol HDL Cholesterol TSH 01/28/18 01/28/18 01/29/18 15:58 23:30 06:30 WBC 8.0 RBC 4.62 Hgb 13.5 Hct 41.3 MCV 89.4 MCH 29.3 MCHC 32.7 RDW 15.2 Plt Count 291 MPV 8.5 Neutrophils % 72.2 Lymphocytes % 15.8 Monocytes % 11.6 H Eosinophils % 0.1 Basophils % 0.3 PT with INR 13.1 H INR 1.17 Sodium Potassium Chloride Carbon Dioxide Anion Gap BUN Creatinine Creat Clearance w eGFR Random Glucose Hemoglobin A1c % Lactic Acid Calcium Phosphorus Magnesium Total Bilirubin AST ALT Alkaline Phosphatase Troponin I 0.11 H B-Natriuretic Peptide Total Protein Albumin Triglycerides Cholesterol Total LDL Cholesterol HDL Cholesterol TSH 01/29/18 01/29/18 01/29/18 06:30 06:30 06:30 WBC RBC Hgb Hct MCV MCH MCHC RDW Plt Count MPV Neutrophils % Lymphocytes % Monocytes % Eosinophils % Basophils % PT with INR INR Sodium Cancelled 142 Potassium Cancelled 4.4 Chloride Cancelled 108 H Carbon Dioxide Cancelled 26 Anion Gap Cancelled 8 BUN Cancelled 16 Creatinine Cancelled 0.9 Creat Clearance w eGFR Cancelled > 60 Random Glucose Cancelled 106 Hemoglobin A1c % 6.3 H Lactic Acid Calcium Cancelled 9.2 Phosphorus Cancelled 2.4 L Magnesium Cancelled 2.1 Total Bilirubin Cancelled 0.2 AST Cancelled 27 ALT Cancelled 37 Alkaline Phosphatase Cancelled 45 Troponin I B-Natriuretic Peptide Total Protein Cancelled 8.0 Albumin Cancelled 4.0 Triglycerides Cancelled 111 Cholesterol Cancelled 117 Total LDL Cholesterol Cancelled 64 HDL Cholesterol Cancelled 46 TSH 1.33 Microbiology 01/28/18 15:30 Blood - Peripheral Venous Blood Culture - Preliminary NO GROWTH OBTAINED AFTER 24 HOURS, INCUBATION TO CONTINUE FOR 4 DAYS. 01/29/18 06:00 Urine For Antigen Detection Legionella Antigen - Final 01/29/18 06:00 Urine For Antigen Detection Streptococcus pneumoniae Antigen (M - Final 01/29/18 01:00 Nasopharyngeal Swab Influenza Types A,B Antigen (CUONG) - Final 01/29/18 01:00 Nasopharyngeal Swab - Final ASSESSMENT AND PLAN: 62 yom with PMHx of CAD s/p CABG, admitted with recent URI like illness, shortness of breath, wheezing and mild troponin elevation. -Shortness of breath/wheezing, suspect acute bronchitis from recent URI like illness, unlikely cardiac etiology -Mild troponin elevation, suspect demand induced from above -CAD s/p CABG Plan: Still wheezy, start prednisone [address] on standing nebs. assess oxygen needs in 24 hours. Azithromycin day 2, d/c tamiflu. cardiology input appreciated. Follow up 2D echo. Continue ASA/statin/ranexa, metoprolol DVTPPX with lovenox Dispo in 1-2 days if improves. Plan discussed with patient in detail, all questions answered.
[2018-01-29] MEDS: predniSONE 20 MG TABLET (UD) PO SCH (17:30)
--- NOTE | 2018-01-29 23:58 | EKG ---
Test Reason : Blood Pressure : / mmHG Vent. Rate : 092 BPM Atrial Rate : 092 BPM P-R Int : 174 ms QRS Dur : 148 ms QT Int : 406 ms P-R-T Axes : 075 083 049 degrees QTc Int : 502 ms NORMAL SINUS RHYTHM POSSIBLE LEFT ATRIAL ENLARGEMENT RIGHT BUNDLE BRANCH BLOCK CANNOT RULE OUT INFERIOR INFARCT , AGE UNDETERMINED ABNORMAL ECG WHEN COMPARED WITH ECG OF 28-JAN-2018 14:35, NO SIGNIFICANT CHANGE WAS FOUND Confirmed by SATYA RIZO MD ([id number]) on 01/29/2018 11:57:39 PM Referred By: Confirmed By:SATYA RIZO MD
--- NOTE | 2018-01-30 05:42 | PN ---
Physical Exam: SUBJECTIVE: Patient seen and examined by me this AM - Afebrile, hemo stable overnight. No major events overnight. Pt feels better, still with mild wheezing, sputum production w/ mild cough - Denies CP, sob, ab pain, dysuria; f/c/n/v, diarrhea/constipation; Good appetite OBJECTIVE: Vital Signs Intake & Output 01/27/18 01/28/18 01/29/18 01/30/18 23:59 23:59 23:59 23:59 Intake Total 330 Output Total 550 Balance -220 Weight 85.185 kg 84.085 kg Period Temp Pulse Resp BP Sys/Andino Pulse Ox Last 24 Hr 97.9 F-98.7 F 67-90 18-20 113-136/70-82 94-97 GENERAL: Elderly man in NAD, A&Ox3. HEAD: Normal with no signs of trauma. EYES: Dilated, poorly reactive to light; EOMI, sclera anicteric, conjunctiva clear. No ptosis. ENT: Ears normal, nares patent, oropharynx clear without exudates, moist mucous membranes. NECK: Trachea midline, full range of motion, supple. LUNGS: BL I/E wheezing diffusely; Bibasilar trace crackles; HEART: Regular rate and rhythm, S1, S2 without murmur, rub or gallop. ABDOMEN: Soft, nontender, nondistended, normoactive bowel sounds, no guarding, no rebound, no hepatosplenomegaly, no masses. EXTREMITIES: 2+ pulses, warm, well-perfused, no edema. NEUROLOGICAL: Cranial nerves II through XII grossly intact. Normal speech, gait not observed. PSYCH: Normal mood, normal affect. Pleasant SKIN: Warm, dry, normal turgor, no rashes or lesions noted Laboratory Results - last 24 hr CBC, BMP CBC, BMP 01/30/18 07:30 01/30/18 07:30 01/29/18 06:30 01/29/18 06:30 01/29/18 01/29/18 01/29/18 06:30 06:30 06:30 WBC 8.0 RBC 4.62 Hgb 13.5 Hct 41.3 MCV 89.4 MCH 29.3 MCHC 32.7 RDW 15.2 Plt Count 291 MPV 8.5 Neutrophils % 72.2 Lymphocytes % 15.8 Monocytes % 11.6 H Eosinophils % 0.1 Basophils % 0.3 Sodium Cancelled Potassium Cancelled Chloride Cancelled Carbon Dioxide Cancelled Anion Gap Cancelled BUN Cancelled Creatinine Cancelled Creat Clearance w eGFR Cancelled Random Glucose Cancelled Hemoglobin A1c % 6.3 H Calcium Cancelled Phosphorus Cancelled Magnesium Cancelled Total Bilirubin Cancelled AST Cancelled ALT Cancelled Alkaline Phosphatase Cancelled Total Protein Cancelled Albumin Cancelled Triglycerides Cancelled Cholesterol Cancelled Total LDL Cholesterol Cancelled HDL Cholesterol Cancelled TSH 01/29/18 06:30 WBC RBC Hgb Hct MCV MCH MCHC RDW Plt Count MPV Neutrophils % Lymphocytes % Monocytes % Eosinophils % Basophils % Sodium 142 Potassium 4.4 Chloride 108 H Carbon Dioxide 26 Anion Gap 8 BUN 16 Creatinine 0.9 Creat Clearance w eGFR > 60 Random Glucose 106 Hemoglobin A1c % Calcium 9.2 Phosphorus 2.4 L Magnesium 2.1 Total Bilirubin 0.2 AST 27 ALT 37 Alkaline Phosphatase 45 Total Protein 8.0 Albumin 4.0 Triglycerides 111 Cholesterol 117 Total LDL Cholesterol 64 HDL Cholesterol 46 TSH 1.33 Active Medications Generic Name Dose Route Start Last Admin Trade Name Freq PRN Reason Stop Dose Admin Albuterol Sulfate 1 amp 01/29/18 10:25 Ventolin 0.083% Nebulizer Soln - NEB Q4H PRN SHORT OF BREATH/WHEEZING Albuterol Sulfate 1 amp 01/29/18 12:00 01/29/18 20:30 Ventolin 0.083% Nebulizer Soln - NEB 1 amp RQID HAYES Administration Aspirin 81 mg 01/29/18 10:00 01/29/18 09:44 Ecotrin - PO 81 mg DAILY HAYES Administration Heparin Sodium (Porcine) 5,000 unit 01/29/18 10:00 01/29/18 21:32 Heparin - SQ 5,000 unit BID HAYES Administration Azithromycin 500 mg/ Dextrose 250 mls @ 250 mls/hr 01/29/18 10:00 01/29/18 09 :42 IVPB 250 mls/hr DAILY HAYES Administration Isosorbide Mononitrate 120 mg 01/29/18 10:00 01/29/18 09:43 Imdur - PO 120 mg DAILY HAYES Administration Metoprolol Succinate 100 mg 01/29/18 10:00 01/29/18 21:32 Toprol Xl - PO 100 mg BID HAYES Administration Non-Formulary Medication 1.2 gm 01/29/18 10:00 Mesalamine [Lialda] PO QID HAYES Paroxetine HCl 10 mg 01/29/18 10:00 01/29/18 09:43 Paxil - PO 10 mg DAILY HAYES Administration Prednisone 40 mg 01/29/18 16:15 01/29/18 17:30 Deltasone - PO 40 mg DAILY HAYES Administration Ranolazine 500 mg 01/29/18 10:00 01/29/18 21:32 Ranexa - PO 500 mg BID HAYES Administration Rosuvastatin Calcium 40 mg 01/29/18 10:00 01/29/18 09:43 Crestor - PO 40 mg DAILY HAYES Administration Microbiology 01/28/18 15:45 Blood - Peripheral Venous Blood Culture - Preliminary NO GROWTH OBTAINED AFTER 24 HOURS, INCUBATION TO CONTINUE FOR 4 DAYS. 01/28/18 15:30 Blood - Peripheral Venous Blood Culture - Preliminary NO GROWTH OBTAINED AFTER 24 HOURS, INCUBATION TO CONTINUE FOR 4 DAYS. 01/29/18 06:00 Urine For Antigen Detection Legionella Antigen - Final 01/29/18 06:00 Urine For Antigen Detection Streptococcus pneumoniae Antigen (M - Final 01/29/18 01:00 Nasopharyngeal Swab Influenza Types A,B Antigen (CUONG) - Final 01/29/18 01:00 Nasopharyngeal Swab - Final CXR 01/28 - Impression : Previous [facility]. No acute chest pathology. No comparison studies. Chest CT 01/28 - IMPRESSION: 1. No acute pathology within the chest. 2. Diffuse fatty infiltration of the liver and cholelithiasis. Local correlation and follow -up recommended. Please see above discussion. ECHO reviewed ASSESSMENT/PLAN: 62 year old male with a significant PMH of bypass surgery in 1996, ulcerative colitis, hyperlipidemia, bipolar disorder, pre diabetes who presented to [place] ED complaining of SOB, cough and wheezing that started suddenly early in the morning. Pt still with dyspnea, wheezing. Will require further treatment before D/c. Plan discussed with over phone during bedside rounds. #Respiratory distress r/o PNA/URI- CT negative for acute pathology, infiltrates ; Hypoxia on pre- and post-, will benefit from further IV steroid tx; seasonal allergies, prior heavy smoker -flu swab negative -Legionella, PNA urine ag neg -Azithro Day 3/ -Tamiflu d/c'ed -o2 support -repeated EKG didn't revealed any changes - mildly elevated trops at 0.11 peak; no longer trending -cardiac monitoring -switched back to Solumedrol 40mg QID -[employer] Operator consulted, recs appreciated - Pulm consulted, recs appreciated #CAD; -HEART score 4 -isosorbide mononitrate -Ranexa - ASA, Metoprolol #HDL: -continue Crestor #Bipolar disease: -cont home meds #Ulcerative colitis - chornic - c/w home mesalamine #PAD: -cont Cilostazol #pre diabetes - -HgA1c 6.3 -hold Metformin #F/E/N: PO hydration Daily lytes Na controlled diet #DVT PPX: Lovenox; SCDs #Dispo: tele Plan discussed with Dr. Kelvin Richards, PGY1 Visit type - Emergency Visit Emergency Visit: Yes ED Registration Date: 01/28/18 Care time: The patient presented to the Emergency Department on the above date and was hospitalized for further evaluation of their emergent condition. - New Patient This patient is new to me today: Yes Date on this admission: 01/31/18 - Critical Care Critical Care patient: No
[2018-01-30 07:59] LABS: BASO % 0.3 % (0-2.0); EOS % 0.3 % (0-4.5); HEMATOCRIT 42.2 % (35.4-49); HEMOGLOBIN 14.1 GM/dL (11.7-16.9); LYMPH % 20.7 % (8-40); MCH 29.8 pg (25.7-33.7); MCHC 33.5 g/dl (32.0-35.9); MEAN PLT VOLUME 8.2 fl (7.5-11.1); MONO % 10.4 % (3.8-10.2); NEUT % 68.3 % (42.8-82.8); PLATELET COUNT 306 K/MM3 (134-434); RBC 4.74 M/mm3 (4.00-5.60); RDW 15.5 % (11.9-15.9); WHITE BLOOD COUNT 7.8 K/mm3 (4.0-10.0)
--- NOTE | 2018-01-30 08:32 | PN ---
Teaching Attending Note Name of Resident: Rodney Richards ATTENDING PHYSICIAN STATEMENT I saw and evaluated the patient. I reviewed the resident's note and discussed the case with the resident. I agree with the resident's findings and plan as documented with exceptions below. SUBJECTIVE: patient seen and examined. still with wheezing and dypsnea, no new complaints. OBJECTIVE: Vital Signs Period Temp Pulse Resp BP Sys/Andino Pulse Ox Last 24 Hr 97.9 F-98.7 F 61-90 18-20 113-150/70-82 94-97 Intake & Output 01/27/18 01/28/18 01/29/18 01/30/18 23:59 23:59 23:59 23:59 Intake Total 330 120 Output Total 550 Balance -220 120 Weight 187 lb 12.8 oz 185 lb 6 oz 182 lb 8 oz general; sitting in bed, mild use of acessory muscles of respiration, chest: bilateral extensive wheezing and decreased air entry Extremities: no edema Home Medication List Medication Instructions Recorded Confirmed Type Ascorbic Acid [Vitamin C] 1,000 mg PO DAILY 01/28/18 01/28/18 History Aspirin [Aspirin EC] 81 mg PO DAILY 01/28/18 01/28/18 History Cholecalciferol (Vitamin D3) 1,000 unit PO DAILY 01/28/18 01/28/18 History [Vitamin D3] Cilostazol [Pletal -] 100 mg PO DAILY 01/28/18 01/28/18 History Cyanocobalamin (Vitamin B-12) 1,000 mcg PO DAILY 01/28/18 01/28/18 History [Vitamin B12] Fenofibrate Nanocrystallized 145 mg PO DAILY 01/28/18 01/28/18 History [Tricor] Glucosa Guidry 2Kcl/Chondroitin Guidry 2 each PO DAILY 01/28/18 01/28/18 History [Glucosamine & Chondroitin Cap] Isosorbide Mononitrate [Isosorbide 120 mg PO DAILY 01/28/18 01/28/18 History Mononitrate ER] Melatonin 10 mg PO DAILY 01/28/18 01/28/18 History Mesalamine [Lialda] 1.2 gm PO QID 01/28/18 01/28/18 History Metformin HCl [Metformin HCl ER] 500 mg PO QID 01/28/18 01/28/18 History Metoprolol Succinate [Toprol Xl] 100 mg PO BID 01/28/18 01/28/18 History Multivit-Min/FA/Lycopen/Lutein 1 each PO DAILY 01/28/18 01/28/18 History [Centrum Silver Tablet] Paroxetine HCl [Paxil] 10 mg PO DAILY 01/28/18 01/28/18 History Pilocarpine HCl 7.5 mg PO QID 01/28/18 01/28/18 History Quetiapine Fumarate [Seroquel -] 500 mg PO DAILY 01/28/18 01/28/18 History Ranolazine [Ranexa] 500 mg PO BID 01/28/18 01/28/18 History Rosuvastatin Calcium [Crestor] 40 mg PO DAILY 01/28/18 01/28/18 History Welchol 625 mg PO ASDIR 01/28/18 History Active Medications Generic Name Dose Route Start Last Admin Trade Name Freq PRN Reason Stop Dose Admin Albuterol Sulfate 1 amp 01/29/18 10:25 Ventolin 0.083% Nebulizer Soln - NEB Q4H PRN SHORT OF BREATH/WHEEZING Albuterol Sulfate 1 amp 01/29/18 12:00 01/29/18 20:30 Ventolin 0.083% Nebulizer Soln - NEB 1 amp RQID HAYES Administration Aspirin 81 mg 01/29/18 10:00 01/29/18 09:44 Ecotrin - PO 81 mg DAILY HAYES Administration Heparin Sodium (Porcine) 5,000 unit 01/29/18 10:00 01/29/18 21:32 Heparin - SQ 5,000 unit BID HAYES Administration Azithromycin 500 mg/ Dextrose 250 mls @ 250 mls/hr 01/29/18 10:00 01/29/18 09 :42 IVPB 250 mls/hr DAILY HAYES Administration Isosorbide Mononitrate 120 mg 01/29/18 10:00 01/29/18 09:43 Imdur - PO 120 mg DAILY HAYES Administration Metoprolol Succinate 100 mg 01/29/18 10:00 01/29/18 21:32 Toprol Xl - PO 100 mg BID HAYES Administration Non-Formulary Medication 1.2 gm 01/29/18 10:00 Mesalamine [Lialda] PO QID HAYES Paroxetine HCl 10 mg 01/29/18 10:00 01/29/18 09:43 Paxil - PO 10 mg DAILY HAYES Administration Prednisone 40 mg 01/29/18 16:15 01/29/18 17:30 Deltasone - PO 40 mg DAILY HAYES Administration Ranolazine 500 mg 01/29/18 10:00 01/29/18 21:32 Ranexa - PO 500 mg BID HAYES Administration Rosuvastatin Calcium 40 mg 01/29/18 10:00 01/29/18 09:43 Crestor - PO 40 mg DAILY HAYES Administration Laboratory Results - last 24 hr 01/30/18 01/30/18 07:30 07:30 WBC 7.8 RBC 4.74 Hgb 14.1 Hct 42.2 MCV 89.0 MCH 29.8 MCHC 33.5 RDW 15.5 Plt Count 306 MPV 8.2 Neutrophils % 68.3 Lymphocytes % 20.7 D Monocytes % 10.4 H Eosinophils % 0.3 D Basophils % 0.3 Sodium 143 Potassium 4.9 Chloride 107 Carbon Dioxide 30 Anion Gap 6 L BUN 19 H Creatinine 0.9 Random Glucose 105 Calcium 8.8 Phosphorus 4.1 D Magnesium 2.4 Microbiology 01/28/18 15:45 Blood - Peripheral Venous Blood Culture - Preliminary NO GROWTH OBTAINED AFTER 24 HOURS, INCUBATION TO CONTINUE FOR 4 DAYS. 01/28/18 15:30 Blood - Peripheral Venous Blood Culture - Preliminary NO GROWTH OBTAINED AFTER 24 HOURS, INCUBATION TO CONTINUE FOR 4 DAYS. 01/29/18 06:00 Urine For Antigen Detection Legionella Antigen - Final 01/29/18 06:00 Urine For Antigen Detection Streptococcus pneumoniae Antigen (M - Final 01/29/18 01:00 Nasopharyngeal Swab Influenza Types A,B Antigen (CUONG) - Final 01/29/18 01:00 Nasopharyngeal Swab - Final ASSESSMENT AND PLAN: 62 yom with PMHx of CAD s/p CABG, admitted with recent URI like illness, shortness of breath, wheezing and mild troponin elevation. -Shortness of breath/wheezing, suspect acute bronchitis from recent URI like illness, unlikely cardiac etiology, unlikely PE based on extensive wheezing and decreaed air entry on exam. -Acute hypoxic respiratory insufficiency -Mild troponin elevation, suspect demand induced from above -CAD s/p CABG Plan: Extensive wheezing, decreased air entry on exam. Pre and post ambulatory oxygen sats noted. Will place on IV solumedrol, standing nebs. pulmonary consult. 2D echo reviewed. SIgnificant hypoxic on pre and post ambulatory oxygen saturations reports recent allergies, also prior heavy smoker, quit 25 years ago. Azithromycin day 3/ cardiology input appreciated. Continue ASA/statin/ranexa, metoprolol DVTPPX with lovenox Dispo pending clinical improvement. Plan discussed with patient and Krystle on phone in detail, all questions answered.
[2018-01-30 08:34] LABS: ANION GAP 6 (8-16); BLOOD UREA NITROGEN 19 mg/dL (7-18); CALCIUM 8.8 mg/dL (8.5-10.1); CHLORIDE 107 mmol/L (98-107); CO2 30 mmol/L (21-32); CREATININE 0.9 mg/dL (0.7-1.3); GLUCOSE,RANDOM 105 mg/dL (74-106); MAGNESIUM 2.4 mg/dL (1.8-2.4); PHOSPHOROUS 4.1 mg/dL (2.5-4.9); POTASSIUM 4.9 mmol/L (3.5-5.1); SODIUM 143 mmol/L (136-145)
[2018-01-30] MEDS: ALBUTEROL SO4 0.083% IH SOL 2.5 MG/3 ML VIAL.NEB. NEB SCH ×2 (08:56→11:00)
[2018-01-30] MEDS ORDERED: PT OWN MED DRAWER 7, Y5N ONE ×2 (09:38→09:46)
[2018-01-30] MEDS: RANOLAZINE E.R. 500 MG TABLET (FP) PO SCH ×2 (09:48→21:30)
[2018-01-30] MEDS: AZITHROMYCIN IVPB 500 MG in DEXTROSE 5%-WATER - 250 ML IVPB SCH (09:48)
[2018-01-30] MEDS: HEPARIN NA (PORCINE) 5,000 UNITS/ML 1ML VIAL SQ SCH ×2 (09:48→21:30)
[2018-01-30] MEDS: ROSUVASTATIN CA 20 MG TABLET (FP) PO SCH (09:49)
[2018-01-30] MEDS: PARoxetine HCL 10 MG TABLET (FP) PO SCH (09:49)
[2018-01-30] MEDS: ISOSORBIDE MONONITRATE 60 MG TAB.SR.24H (FP) PO SCH (09:50)
[2018-01-30] MEDS: predniSONE 20 MG TABLET (UD) PO SCH (09:50)
[2018-01-30] MEDS: ASPIRIN COATED 81 MG TABLET.EC PO SCH (09:50)
--- NOTE | 2018-01-30 12:43 | CON.PULM ---
Consult Consult Specialty:: PULMONARY Referred by:: Dr. Warren Reason for Consultation:: shortness of breath - History of Present Illness Chief Complaint: shortness of breath History of Present Illness: 62yo male with h/o hyperlipidemia, bipolar disorder, PAD, CAD s/p CABG, ulcerative colitis who was admitted with worsening shortness of breath x 2 days. Denies any chest pain or palpitations. No fevers, chills but with night sweats. +cough productive of morejno sputum and significant wheezing. Has never been diagnosed with asthma or COPD before, not on any inhaler therapy previously. His daughter did have the flu last week. He is a former smoker, smoked about 3 PPD x 20 years before quitting more than 20 years ago. He has had wheezing episodeds in the past usually triggered by allergies but they would spontaneously resolve. 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 Has dogs and cats at home. Denies allergies to them. Sleeps on 3 pillows for comfort. - History Source History Provided By: Patient, Medical Record Limitations to Obtaining History: No Limitations - Past Medical History Cardio/Vascular: Yes: CAD, Hyperlipdemia Gastrointestinal: Yes: Ulcerative Colitis - Alcohol/Substance Use Hx Alcohol Use: No - Smoking History Smoking history: Former smoker Have you smoked in the past 12 months: No If you are a former smoker, when did you quit?: 25 yrs ago Home Medications - Allergies Allergies/Adverse Reactions: Allergies Allergy/AdvReac Type Severity Reaction Status Date / Time ciprofloxacin [From Cipro] Allergy Verified 01/28/18 14:33 Penicillins Allergy Verified 01/28/18 14:33 - Home Medications Home Medications: Ambulatory Orders Ascorbic Acid [Vitamin C] 1,000 mg PO DAILY 01/28/18 Aspirin [Aspirin EC] 81 mg PO DAILY 01/28/18 Cholecalciferol (Vitamin D3) [Vitamin D3] 1,000 unit PO DAILY 01/28/18 Cilostazol [Pletal -] 100 mg PO DAILY 01/28/18 Cyanocobalamin (Vitamin B-12) [Vitamin B12] 1,000 mcg PO DAILY 01/28/18 Fenofibrate Nanocrystallized [Tricor] 145 mg PO DAILY 01/28/18 Glucosa Guidry 2Kcl/Chondroitin Guidry [Glucosamine & Chondroitin Cap] 2 each PO DAILY 01/28/18 Isosorbide Mononitrate [Isosorbide Mononitrate ER] 120 mg PO DAILY 01/28/18 Melatonin 10 mg PO DAILY 01/28/18 Mesalamine [Lialda] 1.2 gm PO QID 01/28/18 Metformin HCl [Metformin HCl ER] 500 mg PO QID 01/28/18 Metoprolol Succinate [Toprol Xl] 100 mg PO BID 01/28/18 Multivit-Min/FA/Lycopen/Lutein [Centrum Silver Tablet] 1 each PO DAILY 01/28/18 Paroxetine HCl [Paxil] 10 mg PO DAILY 01/28/18 Pilocarpine HCl 7.5 mg PO QID 01/28/18 Quetiapine Fumarate [Seroquel -] 500 mg PO DAILY 01/28/18 Ranolazine [Ranexa] 500 mg PO BID 01/28/18 Rosuvastatin Calcium [Crestor] 40 mg PO DAILY 01/28/18 Welchol 625 mg PO ASDIR 01/28/18 Review of Systems - Review of Systems Constitutional: reports: Night Sweats. denies: Chills, Fever Eyes: denies: Recent Change in Vision HENT: denies: Nasal Congestion, Throat Pain Neck: denies: Stiffness, Tenderness Cardiovascular: reports: Shortness of Breath. denies: Chest Pain, Edema, Palpitations Respiratory: reports: Cough, Exercise Intolerance, SOB, SOB on Exertion, Wheezing. denies: Hemoptysis Gastrointestinal: denies: Abdominal Pain, Nausea, Vomiting Genitourinary: denies: Dysuria, Hematuria Neurological: denies: Dizziness, Headache Physical Exam Vital Sings: Vital Signs Temperature 98.4 F 01/30/18 10:00 Pulse Rate 73 01/30/18 10:00 Respiratory Rate 18 01/30/18 10:00 Blood Pressure 129/84 01/30/18 10:00 O2 Sat by Pulse Oximetry (%) 92 L 01/30/18 11:37 Constitutional: Yes: Calm Eyes: Yes: Conjunctiva Clear, EOM Intact HENT: Yes: Atraumatic, Normocephalic Neck: Yes: Supple, Trachea Midline Cardiovascular: Yes: Regular Rate and Rhythm Respiratory: Yes: Rhonchi, Wheezes ...Clubbing: No Gastrointestinal: Yes: Normal Bowel Sounds, Soft. No: Tenderness Edema: No Neurological: Yes: Alert, Oriented Labs: CBC, BMP 01/30/18 07:30 01/30/18 07:30 Imaging - Results Cat Scan: Report Reviewed, Image Reviewed (no infiltrates) Problem List - Problems (1) Acute bronchospasm Code(s): J98.01 - ACUTE BRONCHOSPASM (2) CAD (coronary artery disease) Code(s): I25.10 - ATHSCL HEART DISEASE OF [place] CORONARY ARTERY W/O ANG PCTRS (3) Dyslipidemia (high LDL; low HDL) Code(s): E78.5 - HYPERLIPIDEMIA, UNSPECIFIED (4) PAD (peripheral artery disease) Code(s): I73.9 - PERIPHERAL VASCULAR DISEASE, UNSPECIFIED Assessment/Plan Acute Bronchospasm Likely Underlying Asthma/COPD CAD s/p CABG PAD Hyperlipidemia Bipolar Disorder - agree with IV medrol - complete 5 day course of azithromycin - inhaled bronchodilators standing and PRN, will change standing albuterol to duoneb - will add singulair - if no significant improvement, would consider holding metoprolol until respiratory status improved - when ready for discharge would discharge on prednsone LABA/ICS (i.e. Symbicort/Advair/Dulera) BID, singulair 10mg qHS and albuterol MDI PRN - will need outpt PFTs, allergy testing and follow up - DVT prophylaxis Thank you for this consult Bk Guevara MD
[2018-01-30] MEDS: ALBUTEROL SO4 2.5/IPRATROPIUM 0.5 INH SOL 3 ML VIAL.NEB. NEB SCH ×2 (15:00→20:40)
[2018-01-30] MEDS ORDERED: methylPREDNISolone NA SUCC 1000 MG/8 ML VIAL IVPB SCH (15:00)
[2018-01-30] MEDS: methylPREDNISolone NA SUCC 40 MG/1 ML VIAL IVPB SCH ×2 (15:46→21:31)
--- NOTE | 2018-01-30 16:56 | PN ---
Progress Note (short form) - Note Progress Note: cc: sob, wheeze, cough S: sob improving. no cp, palps, dizziness. Current Medications Albuterol Sulfate (Ventolin 0.083% Nebulizer Soln -) 1 amp NEB Q4H PRN PRN Reason: SHORT OF BREATH/WHEEZING Albuterol/Ipratropium (Duoneb -) 1 amp NEB RQID [facility] Aspirin (Ecotrin -) 81 mg PO DAILY [facility] Last Admin: 01/30/18 09:50 Dose: 81 mg Heparin Sodium (Porcine) (Heparin -) 5,000 unit SQ BID [facility] Last Admin: 01/30/18 09:48 Dose: 5,000 unit Azithromycin 500 mg/ Dextrose 250 mls @ 250 mls/hr IVPB DAILY [facility] Last Admin: 01/30/18 09:48 Dose: 250 mls/hr Isosorbide Mononitrate (Imdur -) 120 mg PO DAILY [facility] Last Admin: 01/30/18 09:50 Dose: 120 mg Methylprednisolone Sodium Succinate (Solu-Medrol -) 40 mg IVPB Q6H-IV [facility] Last Admin: 01/30/18 15:46 Dose: Not Given Metoprolol Succinate (Toprol Xl -) 100 mg PO BID [facility] Last Admin: 01/30/18 09:50 Dose: 100 mg Montelukast Sodium (Singulair -) 10 mg PO HS [facility] Non-Formulary Medication (Mesalamine [Lialda]) 1.2 gm PO QID [facility] Paroxetine HCl (Paxil -) 10 mg PO DAILY [facility] Last Admin: 01/30/18 09:49 Dose: 10 mg Ranolazine (Ranexa -) 500 mg PO BID [facility] Last Admin: 01/30/18 09:48 Dose: 500 mg Rosuvastatin Calcium (Crestor -) 40 mg PO DAILY [facility] Last Admin: 01/30/18 09:49 Dose: 40 mg Vital Signs - 24 hr 01/29/18 01/29/18 01/29/18 17:17 20:25 21:00 Temperature 97.9 F 98.7 F Pulse Rate 76 74 Respiratory 18 18 Rate Blood Pressure 121/73 134/74 O2 Sat by Pulse 94 L Oximetry (%) 01/30/18 01/30/18 01/30/18 01:36 06:00 08:54 Temperature 98.3 F 98.3 F Pulse Rate 67 61 97 H Respiratory 18 18 Rate Blood Pressure 127/70 150/77 O2 Sat by Pulse 95 Oximetry (%) 01/30/18 01/30/18 01/30/18 10:00 11:37 15:08 Temperature 98.4 F 98.3 F Pulse Rate 73 75 Respiratory 18 18 Rate Blood Pressure 129/84 132/68 O2 Sat by Pulse 92 L Oximetry (%) Intake & Output 01/28/18 01/29/18 01/30/18 01/31/18 07:59 07:59 07:59 07:59 Intake Total 200 130 120 Output Total 200 350 Balance 0 -220 120 Weight 185 lb 6 oz 182 lb 8 oz pe: nad no jvd rrr s1s2 no mrg slight exp wheezes, nl eff aaox3 no le e/c/c abd nt nd pos bs no jaundice diaphoresis pos dp pt no carotid bruits CBC, BMP 01/30/18 07:30 01/30/18 07:30 cxr: clear lungs ecg: sr, rbbb tele: sr/sb echo 01/2018: nl lv/rv size/fn. nl valves. a/p: 62 m hx cad s/p cabg (1996), pci approx 2007 (no hx mi, done for cp), hld , htn, here with 1 day of sob/wheeze/cough. sob, cough, wheeze: -no signs chf. ce's negative, no signs acs. current sxs different then his prior cad sxs and have resolved with nebs so seem more URI related. -echo wnl. cad: -as above -stable, no angina -pt reports nl stress test 1 year ago -cont home asa, bb, imdur, ranexa, statin hld: -cont statin htn: -cont home meds
[2018-01-30] MEDS: MONTELUKAST NA 10 MG TABLET PO SCH (21:30)
[2018-01-31] MEDS: methylPREDNISolone NA SUCC 40 MG/1 ML VIAL IVPB SCH ×3 (02:56→17:27)
--- NOTE | 2018-01-31 06:08 | PN ---
Physical Exam: SUBJECTIVE: Patient seen and examined by me this AM - No overnight events. Still with productive cough, kebede sputum. No BM since tuesday. Denies f/c/n/v/d, no CP SOB, ab pain, LE edema - Will require repeat pre and post in 48 hours. Tentative plan for d/c in 48 hours OBJECTIVE: Vital Signs Intake & Output 01/28/18 01/29/18 01/30/18 01/31/18 23:59 23:59 23:59 23:59 Intake Total 330 377 Output Total 550 Balance -220 377 Weight 85.185 kg 84.085 kg 82.781 kg Period Temp Pulse Resp BP Sys/Andino Pulse Ox Last 24 Hr 97.7 F-98.8 F 60-97 18-20 119-134/68-84 92-96 GENERAL: Elderly man in NAD, A&Ox3. HEAD: Normal with no signs of trauma. EYES: Dilated, poorly reactive to light; EOMI, sclera anicteric, conjunctiva clear. No ptosis. ENT: Ears normal, nares patent, oropharynx clear without exudates, moist mucous membranes. NECK: Trachea midline, full range of motion, supple. LUNGS: BL diffuse mild rhonchi. Ex wheezing in upper lung hastings. HEART: Regular rate and rhythm, S1, S2 without murmur, rub or gallop. ABDOMEN: Abdomen slightly distended. Soft, nontender, hypoactive bowel sounds, no guarding, no rebound, no hepatosplenomegaly, no masses. EXTREMITIES: 2+ pulses, warm, well-perfused, no edema. NEUROLOGICAL: Cranial nerves II through XII grossly intact. Normal speech, gait not observed. PSYCH: Normal mood, normal affect. Very pleasant SKIN: Warm, dry, normal turgor, no rashes or lesions noted Laboratory Results - last 24 hr CBC, BMP 01/31/18 08:11 01/31/18 08:11 01/30/18 07:30 01/30/18 07:30 01/30/18 01/30/18 07:30 07:30 WBC 7.8 RBC 4.74 Hgb 14.1 Hct 42.2 MCV 89.0 MCH 29.8 MCHC 33.5 RDW 15.5 Plt Count 306 MPV 8.2 Neutrophils % 68.3 Lymphocytes % 20.7 D Monocytes % 10.4 H Eosinophils % 0.3 D Basophils % 0.3 Sodium 143 Potassium 4.9 Chloride 107 Carbon Dioxide 30 Anion Gap 6 L BUN 19 H Creatinine 0.9 Random Glucose 105 Calcium 8.8 Phosphorus 4.1 D Magnesium 2.4 Active Medications Generic Name Dose Route Start Last Admin Trade Name Freq PRN Reason Stop Dose Admin Albuterol Sulfate 1 amp 01/29/18 10:25 Ventolin 0.083% Nebulizer Soln - NEB Q4H PRN SHORT OF BREATH/WHEEZING Albuterol/Ipratropium 1 amp 01/30/18 16:00 01/30/18 20:40 Duoneb - NEB 1 amp RQID HAEYS Administration Aspirin 81 mg 01/29/18 10:00 01/30/18 09:50 Ecotrin - PO 81 mg DAILY HAYES Administration Heparin Sodium (Porcine) 5,000 unit 01/29/18 10:00 01/30/18 21:30 Heparin - SQ 5,000 unit BID HAYES Administration Azithromycin 500 mg/ Dextrose 250 mls @ 250 mls/hr 01/29/18 10:00 01/30/18 09 :48 IVPB 250 mls/hr DAILY HAYES Administration Isosorbide Mononitrate 120 mg 01/29/18 10:00 01/30/18 09:50 Imdur - PO 120 mg DAILY HAYES Administration Methylprednisolone Sodium Succinate 40 mg 01/30/18 15:00 01/31/18 02:56 Solu-Medrol - IVPB 40 mg Q6H-IV HAYES Administration Metoprolol Succinate 100 mg 01/29/18 10:00 01/30/18 21:30 Toprol Xl - PO 100 mg BID HAYES Administration Montelukast Sodium 10 mg 01/30/18 22:00 01/30/18 21:30 Singulair - PO 10 mg HS HAYES Administration Non-Formulary Medication 1.2 gm 01/29/18 10:00 Mesalamine [Lialda] PO QID HAYES Paroxetine HCl 10 mg 01/29/18 10:00 01/30/18 09:49 Paxil - PO 10 mg DAILY HAYES Administration Ranolazine 500 mg 01/29/18 10:00 01/30/18 21:30 Ranexa - PO 500 mg BID HAYES Administration Rosuvastatin Calcium 40 mg 01/29/18 10:00 01/30/18 09:49 Crestor - PO 40 mg DAILY HAYES Administration Microbiology 01/28/18 15:45 Blood - Peripheral Venous Blood Culture - Preliminary NO GROWTH OBTAINED AFTER 48 HOURS, INCUBATION TO CONTINUE FOR 3 DAYS. 01/28/18 15:30 Blood - Peripheral Venous Blood Culture - Preliminary NO GROWTH OBTAINED AFTER 48 HOURS, INCUBATION TO CONTINUE FOR 3 DAYS. 01/29/18 06:00 Urine For Antigen Detection Legionella Antigen - Final 01/29/18 06:00 Urine For Antigen Detection Streptococcus pneumoniae Antigen (M - Final 01/29/18 01:00 Nasopharyngeal Swab Influenza Types A,B Antigen (CUONG) - Final 01/29/18 01:00 Nasopharyngeal Swab - Final CXR 01/28 - Impression : Previous OHS. No acute chest pathology. No comparison studies. Chest CT 01/28 - IMPRESSION: 1. No acute pathology within the chest. 2. Diffuse fatty infiltration of the liver and cholelithiasis. Local correlation and follow -up recommended. Please see above discussion. ECHO reviewed - normal echo, no WMA, trace /MR ASSESSMENT/PLAN: 62 year old male with a significant PMH of bypass surgery in 1996, ulcerative colitis, hyperlipidemia, bipolar disorder, pre diabetes who presented to [facility] ED complaining of SOB, cough and wheezing that started suddenly early in the morning. Pt breathing improving, still with cough and mild wheezing. Will continue to taper steroids and finish azithromycin course, repeat pre and post with anticipated d/c in 48 hours. #Respiratory distress r/o PNA/URI- CT negative for acute pathology, infiltrates ; Like bronchitis vs. reactive airway disease -flu swab negative -Legionella, PNA urine ag neg -Azithro Day 4/ -o2 support -repeated EKG no changes - mildly elevated trops at 0.11 peak; no longer trending -cardiac monitoring -Solumedrol 40mg TID; decreased per pulm recs -Lunch Counter Manager consulted, recs appreciated - Pulm consulted, recs appreciated - ventolin PRN - duonebs QID #CAD; -HEART score 4 -isosorbide mononitrate -Ranexa - ASA, Metoprolol #HDL: -continue Crestor #Bipolar disease: -cont home meds; paxil 10mg daily #Ulcerative colitis - chornic - c/w home mesalamine #PAD: -cont Cilostazol #pre diabetes - -HgA1c 6.3 -hold Metformin #F/E/N: PO hydration Daily lytes Na controlled diet #DVT PPX: Lovenox; SCDs #Dispo: Ok for transfer to /S Plan discussed with Dr. Aranza Richards, PGY1 Visit type - Emergency Visit Emergency Visit: Yes ED Registration Date: 01/28/18 Care time: The patient presented to the Emergency Department on the above date and was hospitalized for further evaluation of their emergent condition. - New Patient This patient is new to me today: No - Critical Care Critical Care patient: No
[2018-01-31 08:43] LABS: HEMATOCRIT 41.2 % (35.4-49); HEMOGLOBIN 13.7 GM/dL (11.7-16.9); MCH 29.6 pg (25.7-33.7); MCHC 33.2 g/dl (32.0-35.9); MEAN CELL VOLUME 89.2 fl (80-96); MEAN PLT VOLUME 8.1 fl (7.5-11.1); PLATELET COUNT 324 K/MM3 (134-434); RBC 4.62 M/mm3 (4.00-5.60); RDW 14.8 % (11.9-15.9)
[2018-01-31] MEDS: ALBUTEROL SO4 2.5/IPRATROPIUM 0.5 INH SOL 3 ML VIAL.NEB. NEB SCH ×4 (08:44→20:30)
[2018-01-31] MEDS ORDERED: PT OWN MED DRAWER 7, Y5N ONE (09:11)
[2018-01-31 09:12] LABS: ANION GAP 5 (8-16); BLOOD UREA NITROGEN 22 mg/dL (7-18); CHLORIDE 108 mmol/L (98-107); CO2 29 mmol/L (21-32); GLUCOSE,RANDOM 143 mg/dL (74-106); POTASSIUM 5.1 mmol/L (3.5-5.1); SODIUM 142 mmol/L (136-145)
[2018-01-31 09:14] LABS: CALCIUM 8.5 mg/dL (8.5-10.1)
[2018-01-31] MEDS: RANOLAZINE E.R. 500 MG TABLET (FP) PO SCH ×2 (09:46→22:12)
[2018-01-31] MEDS: PARoxetine HCL 10 MG TABLET (FP) PO SCH (09:46)
[2018-01-31] MEDS: ISOSORBIDE MONONITRATE 60 MG TAB.SR.24H (FP) PO SCH (09:46)
[2018-01-31] MEDS: ROSUVASTATIN CA 20 MG TABLET (FP) PO SCH (09:47)
[2018-01-31] MEDS: HEPARIN NA (PORCINE) 5,000 UNITS/ML 1ML VIAL SQ SCH ×2 (09:47→22:12)
[2018-01-31] MEDS: ASPIRIN COATED 81 MG TABLET.EC PO SCH (09:47)
[2018-01-31] MEDS: AZITHROMYCIN IVPB 500 MG in DEXTROSE 5%-WATER - 250 ML IVPB SCH (09:52)
--- NOTE | 2018-01-31 12:33 | PN ---
Progress Note (short form) - Note Progress Note: cc: sob, wheeze, cough S: sob improving. no cp, palps, dizziness. Current Medications Albuterol Sulfate (Ventolin 0.083% Nebulizer Soln -) 1 amp NEB Q4H PRN PRN Reason: SHORT OF BREATH/WHEEZING Albuterol/Ipratropium (Duoneb -) 1 amp NEB RQID [facility] Last Admin: 01/31/18 12:30 Dose: 1 amp Aspirin (Ecotrin -) 81 mg PO DAILY [facility] Last Admin: 01/31/18 09:47 Dose: 81 mg Heparin Sodium (Porcine) (Heparin -) 5,000 unit SQ BID [facility] Last Admin: 01/31/18 09:47 Dose: 5,000 unit Azithromycin 500 mg/ Dextrose 250 mls @ 250 mls/hr IVPB DAILY [facility] Last Admin: 01/31/18 09:52 Dose: 250 mls/hr Isosorbide Mononitrate (Imdur -) 120 mg PO DAILY [facility] Last Admin: 01/31/18 09:46 Dose: 120 mg Methylprednisolone Sodium Succinate (Solu-Medrol -) 40 mg IVPB Q6H-IV [facility] Last Admin: 01/31/18 09:46 Dose: 40 mg Metoprolol Succinate (Toprol Xl -) 100 mg PO BID [facility] Last Admin: 01/31/18 09:46 Dose: 100 mg Montelukast Sodium (Singulair -) 10 mg PO HS [facility] Last Admin: 01/30/18 21:30 Dose: 10 mg Non-Formulary Medication (Mesalamine [Lialda]) 1.2 gm PO QID [facility] Paroxetine HCl (Paxil -) 10 mg PO DAILY [facility] Last Admin: 01/31/18 09:46 Dose: 10 mg Ranolazine (Ranexa -) 500 mg PO BID [facility] Last Admin: 01/31/18 09:46 Dose: 500 mg Rosuvastatin Calcium (Crestor -) 40 mg PO DAILY [facility] Last Admin: 01/31/18 09:47 Dose: 40 mg Vital Signs - 24 hr 01/30/18 01/30/18 01/30/18 15:08 18:27 21:00 Temperature 98.3 F 98.8 F Pulse Rate 75 76 Respiratory 18 20 Rate Blood Pressure 132/68 134/76 O2 Sat by Pulse 96 Oximetry (%) 01/30/18 01/31/18 01/31/18 22:00 02:00 06:00 Temperature 97.7 F 98.0 F 97.4 F L Pulse Rate 64 60 59 L Respiratory 18 20 20 Rate Blood Pressure 130/77 119/68 118/72 O2 Sat by Pulse Oximetry (%) 01/31/18 09:41 Temperature 97.8 F Pulse Rate 56 L Respiratory 20 Rate Blood Pressure 135/75 O2 Sat by Pulse Oximetry (%) Intake & Output 01/29/18 01/30/18 01/31/18 02/01/18 07:59 07:59 07:59 07:59 Intake Total 200 130 377 Output Total 200 350 Balance 0 -220 377 Weight 185 lb 6 oz 182 lb 8 oz 183 lb 8 oz pe: nad no jvd rrr s1s2 no mrg slight exp wheezes, nl eff aaox3 no le e/c/c abd nt nd pos bs no jaundice diaphoresis pos dp pt no carotid bruits CBC, BMP 01/31/18 08:11 01/31/18 08:11 cxr: clear lungs ecg: sr, rbbb tele: sr/sb echo 01/2018: nl lv/rv size/fn. nl valves. a/p: 62 m hx cad s/p cabg (1996), pci approx 2007 (no hx mi, done for cp), hld , htn, here with 1 day of sob/wheeze/cough. sob, cough, wheeze: -no signs chf. ce's negative, no signs acs. current sxs different then his prior cad sxs and have resolved with nebs so seem more URI related. -echo wnl. cad: -as above -stable, no angina -pt reports nl stress test 1 year ago -cont home asa, bb, imdur, ranexa, statin hld: -cont statin htn: -cont home meds Ok to d/c telemetry.
--- NOTE | 2018-01-31 12:50 | PN ---
Progress Note (short form) - Note Progress Note: PULMONARY Breathing slightly improving. Cough resolving but still wheezing. Last Vital Signs Temp Pulse Resp BP Pulse Ox 97.8 F 56 L 20 135/75 96 01/31/18 09:41 01/31/18 09:41 01/31/18 09:41 01/31/18 09:41 01/30/18 21:00 Gen: NAD at rest Heart: RRR Lung: scattered rhonchi, wheezes Abd: soft, nontender Ext: no edema CBC, BMP 01/31/18 08:11 01/31/18 08:11 Active Medications Albuterol Sulfate (Ventolin 0.083% Nebulizer Soln -) 1 amp NEB Q4H PRN PRN Reason: SHORT OF BREATH/WHEEZING Albuterol/Ipratropium (Duoneb -) 1 amp NEB RQID [facility] Last Admin: 01/31/18 12:30 Dose: 1 amp Aspirin (Ecotrin -) 81 mg PO DAILY [facility] Last Admin: 01/31/18 09:47 Dose: 81 mg Heparin Sodium (Porcine) (Heparin -) 5,000 unit SQ BID [facility] Last Admin: 01/31/18 09:47 Dose: 5,000 unit Azithromycin 500 mg/ Dextrose 250 mls @ 250 mls/hr IVPB DAILY [facility] Last Admin: 01/31/18 09:52 Dose: 250 mls/hr Isosorbide Mononitrate (Imdur -) 120 mg PO DAILY [facility] Last Admin: 01/31/18 09:46 Dose: 120 mg Methylprednisolone Sodium Succinate (Solu-Medrol -) 40 mg IVPB Q6H-IV [facility] Last Admin: 01/31/18 09:46 Dose: 40 mg Metoprolol Succinate (Toprol Xl -) 100 mg PO BID [facility] Last Admin: 01/31/18 09:46 Dose: 100 mg Montelukast Sodium (Singulair -) 10 mg PO HS [facility] Last Admin: 01/30/18 21:30 Dose: 10 mg Non-Formulary Medication (Mesalamine [Lialda]) 1.2 gm PO QID [facility] Paroxetine HCl (Paxil -) 10 mg PO DAILY [facility] Last Admin: 01/31/18 09:46 Dose: 10 mg Ranolazine (Ranexa -) 500 mg PO BID [facility] Last Admin: 03/20/18 09:46 Dose: 500 mg Rosuvastatin Calcium (Crestor -) 40 mg PO DAILY [facility] Last Admin: 01/31/18 09:47 Dose: 40 mg A/P Acute Bronchospasm Likely Underlying Asthma/COPD CAD s/p CABG PAD Hyperlipidemia Bipolar Disorder - continue medrol, will decrease to q8h - complete 5 day course of azithromycin - inhaled bronchodilators standing and PRN - continue singulair - if no significant improvement, would consider holding metoprolol until respiratory status improved - when ready for discharge would discharge on prednisone, LABA/ICS (i.e. Symbicort/Advair/Dulera) BID, singulair 10mg qHS and albuterol MDI PRN - will need outpt PFTs, allergy testing and follow up - DVT prophylaxis Problem List - Problems (1) Acute bronchospasm Code(s): J98.01 - ACUTE BRONCHOSPASM (2) CAD (coronary artery disease) Code(s): I25.10 - ATHSCL HEART DISEASE OF [place] CORONARY ARTERY W/O ANG PCTRS (3) Dyslipidemia (high LDL; low HDL) Code(s): E78.5 - HYPERLIPIDEMIA, UNSPECIFIED (4) PAD (peripheral artery disease) Code(s): I73.9 - PERIPHERAL VASCULAR DISEASE, UNSPECIFIED
--- NOTE | 2018-01-31 18:09 | PN ---
Teaching Attending Note Name of Resident: Rodney Richards ATTENDING PHYSICIAN STATEMENT I saw and evaluated the patient. I reviewed the resident's note and discussed the case with the resident. I agree with the resident's findings and plan as documented. SUBJECTIVE:breathing has improved but not at baseline. continues to have productive cough of kebede sputum. denies CP, SOB, fever, chills, N/V/C/D OBJECTIVE: Last Vital Signs Temp Pulse Resp BP Pulse Ox 98.5 F 62 20 115/75 96 01/31/18 17:54 01/31/18 17:54 01/31/18 17:54 01/31/18 17:54 01/31/18 09:00 General NAD CV S1 S2 RRR +murmur Lungs diffuse expiratory wheezing ASSESSMENT AND PLAN: 62 yo M with PMHx of CAD s/p CABG, admitted with recent URI like illness, shortness of breath, wheezing and mild troponin elevation. 1. Acute hypoxic respiratory distress0 due to acute bronchitis vs underlying COPD. clinically improved. decrease medrol to Q8H dosing. taper as tolerated. will repeat pre and post in 48H to assess if improved. did qualify for oxygen previously. cont azithromycin day 4. complete 5 day course. nebs prn. pulmonary on board. will need PFT as outpatient 2. Tropinemia- Trop peak at 0.11. likely not cardiac. echo with no WMA. can d/c cardiac monitoring 3. DVT ppx- hep sq 4. can d/c cardiac montioring. anticipate d/c in 48H. spoke with patient.
[2018-01-31] MEDS ORDERED: SENNOSIDES 8.6MG TABLET (FP) PO PRN (19:53)
[2018-01-31] MEDS: MONTELUKAST NA 10 MG TABLET PO SCH (22:12)
[2018-01-31] MEDS: DOCUSATE SODIUM 100 MG CAPSULE (FP) PO SCH (22:12)
[2018-02-01] MEDS: methylPREDNISolone NA SUCC 40 MG/1 ML VIAL IVPB SCH ×3 (02:00→21:32)
[2018-02-01] MEDS: DOCUSATE SODIUM 100 MG CAPSULE (FP) PO SCH ×3 (05:45→21:32)
--- NOTE | 2018-02-01 06:04 | PN ---
Physical Exam: SUBJECTIVE: Patient seen and examined - no major events. Afebrile, on 3L NC; plan for d/c in 24 hours after repeat pre and post, transition to PO prednisone - No f/c/n/v/d; Still w/ no BM; Endorsing mild nonproductive cough; Good appetite, sleep, energy; States a large oxygen tank was sent to house, unsure if he will require lifelong oxygen or not; informed that there was likely a communication error with CW, will correct on rounds. OBJECTIVE: Vital Signs Intake & Output 01/29/18 01/30/18 01/31/18 02/01/18 23:59 23:59 23:59 23:59 Intake Total 330 377 730 Output Total 550 1300 Balance -220 377 -570 Weight 84.085 kg 82.781 kg 83.234 kg Period Temp Pulse Resp BP Sys/Andino Pulse Ox Last 24 Hr 97.8 F-98.6 F 56-63 18-20 111-135/61-80 94-96 GENERAL: Elderly man in NAD, A&Ox3. Pleasant HEAD: Normal with no signs of trauma. EYES: Dilated, poorly reactive to light; EOMI, sclera anicteric, conjunctiva clear. No ptosis. ENT: Ears normal, nares patent, oropharynx clear without exudates, moist mucous membranes. NECK: Trachea midline, full range of motion, supple. LUNGS: Trace bibasilar rhonchi. No wheezing noted. HEART: Regular rate and rhythm, S1, S2 without murmur, rub or gallop. ABDOMEN: Abdomen distended. Soft, nontender, hypoactive bowel sounds, no guarding, no rebound, no hepatosplenomegaly, no masses. EXTREMITIES: 2+ pulses, warm, well-perfused, no edema. NEUROLOGICAL: Cranial nerves II through XII grossly intact. Normal speech, gait not observed. PSYCH: Normal mood, normal affect. Very pleasant SKIN: Warm, dry, normal turgor, no rashes or lesions noted Laboratory Results - last 24 hr CBC, BMP 02/01/18 06:15 02/01/18 06:15 01/31/18 08:11 01/31/18 08:11 01/31/18 01/31/18 08:11 08:11 WBC 8.0 RBC 4.62 Hgb 13.7 Hct 41.2 MCV 89.2 MCH 29.6 MCHC 33.2 RDW 14.8 Plt Count 324 MPV 8.1 Sodium 142 Potassium 5.1 Chloride 108 H Carbon Dioxide 29 Anion Gap 5 L BUN 22 H Creatinine 1.0 Random Glucose 143 H D Calcium 8.5 Active Medications Generic Name Dose Route Start Last Admin Trade Name Freq PRN Reason Stop Dose Admin Albuterol Sulfate 1 amp 01/29/18 10:25 Ventolin 0.083% Nebulizer Soln - NEB Q4H PRN SHORT OF BREATH/WHEEZING Albuterol/Ipratropium 1 amp 01/30/18 16:00 01/31/18 20:30 Duoneb - NEB 1 amp RQID [facility] Administration Aspirin 81 mg 01/29/18 10:00 01/31/18 09:47 Ecotrin - PO 81 mg DAILY [facility] Administration Docusate Sodium 100 mg 01/31/18 22:00 02/01/18 05:45 Colace - PO 100 mg TID [facility] Administration Heparin Sodium (Porcine) 5,000 unit 01/29/18 10:00 01/31/18 22:12 Heparin - SQ 5,000 unit BID [facility] Administration Azithromycin 500 mg/ Dextrose 250 mls @ 250 mls/hr 01/29/18 10:00 01/31/18 09 :52 IVPB 250 mls/hr DAILY [facility] Administration Isosorbide Mononitrate 120 mg 01/29/18 10:00 01/31/18 09:46 Imdur - PO 120 mg DAILY [facility] Administration Methylprednisolone Sodium Succinate 40 mg 01/31/18 18:00 02/01/18 02:00 Solu-Medrol - IVPB 40 mg Q8H-IV [facility] Administration Metoprolol Succinate 100 mg 01/29/18 10:00 01/31/18 22:12 Toprol Xl - PO 100 mg BID [facility] Administration Montelukast Sodium 10 mg 01/30/18 22:00 01/31/18 22:12 Singulair - PO 10 mg HS [facility] Administration Non-Formulary Medication 1.2 gm 01/29/18 10:00 Mesalamine [Lialda] PO QID [facility] Paroxetine HCl 10 mg 01/29/18 10:00 01/31/18 09:46 Paxil - PO 10 mg DAILY [facility] Administration Ranolazine 500 mg 01/29/18 10:00 01/31/18 22:12 Ranexa - PO 500 mg BID [facility] Administration Rosuvastatin Calcium 40 mg 01/29/18 10:00 01/31/18 09:47 Crestor - PO 40 mg DAILY [facility] Administration Senna 2 tab 01/31/18 19:53 Senna - PO HS PRN CONSTIPATION Microbiology 01/28/18 15:45 Blood - Peripheral Venous Blood Culture - Preliminary NO GROWTH OBTAINED AFTER 72 HOURS, INCUBATION TO CONTINUE FOR 2 DAYS. 01/28/18 15:30 Blood - Peripheral Venous Blood Culture - Preliminary NO GROWTH OBTAINED AFTER 72 HOURS, INCUBATION TO CONTINUE FOR 2 DAYS. 01/29/18 06:00 Urine For Antigen Detection Legionella Antigen - Final 01/29/18 06:00 Urine For Antigen Detection Streptococcus pneumoniae Antigen (M - Final 01/29/18 01:00 Nasopharyngeal Swab Influenza Types A,B Antigen ([facility]) - Final 01/29/18 01:00 Nasopharyngeal Swab - Final CXR 01/28 - Impression : Previous OHS. No acute chest pathology. No comparison studies. Chest CT 01/28 - IMPRESSION: 1. No acute pathology within the chest. 2. Diffuse fatty infiltration of the liver and cholelithiasis. Local correlation and follow -up recommended. Please see above discussion. ECHO 01/30 reviewed - normal echo, no WMA, trace /MR ASSESSMENT/PLAN: 62 year old male with a significant PMH of bypass surgery in 1996, ulcerative colitis, hyperlipidemia, bipolar disorder, pre diabetes who presented to [place] ED complaining of SOB, cough and wheezing that started suddenly early in the morning. Pt continues to improve with cough and breathing, however pre and post qualify pt for home o2 with ambulation. Will d/c tomorrow w/ home o2 and f/ u with pulm group. #Respiratory distress r/o PNA/URI- CT negative for acute pathology, infiltrates ; Like bronchitis vs. reactive airway disease -flu swab negative -Legionella, PNA urine ag neg -Azithro Day 03/18. D/c tomorrow -o2 support -repeated EKG no changes - mildly elevated trops at 0.11 peak; no longer trending -cardiac monitoring -Solumedrol 40mg BID; will switch to PO prednisone tomorrow -Desktop Publishing Operator consulted, recs appreciated - Pulm consulted, recs appreciated - ventolin d/c'ed - duonebs Q4h PRN #CAD; -HEART score 4; initial trop peaked at 0.11; likely not cardiac in nature -isosorbide mononitrate -Ranexa - ASA, Metoprolol #HDL: -continue Crestor #Bipolar disease: -cont home meds; paxil 10mg daily #Ulcerative colitis - chornic - c/w home mesalamine #PAD: -cont Cilostazol #pre diabetes - -HgA1c 6.3 -hold Metformin #F/E/N: PO hydration Daily lytes Na controlled diet #DVT PPX: Lovenox; SCDs #Dispo: D/c home tomorrow with home o2 Plan discussed with Dr. Aranza Richards, PGY1 Visit type - Emergency Visit Emergency Visit: Yes ED Registration Date: 01/28/18 Care time: The patient presented to the Emergency Department on the above date and was hospitalized for further evaluation of their emergent condition. - New Patient This patient is new to me today: No - Critical Care Critical Care patient: No
[2018-02-01] MEDS: ALBUTEROL SO4 2.5/IPRATROPIUM 0.5 INH SOL 3 ML VIAL.NEB. NEB SCH ×3 (07:39→16:53)
[2018-02-01 07:56] LABS: HEMATOCRIT 40.2 % (35.4-49); HEMOGLOBIN 13.5 GM/dL (11.7-16.9); MCH 29.8 pg (25.7-33.7); MCHC 33.5 g/dl (32.0-35.9); MEAN CELL VOLUME 88.9 fl (80-96); PLATELET COUNT 296 K/MM3 (134-434); RBC 4.52 M/mm3 (4.00-5.60); WHITE BLOOD COUNT 8.7 K/mm3 (4.0-10.0)
[2018-02-01 08:10] LABS: ANION GAP 8 (8-16); BLOOD UREA NITROGEN 25 mg/dL (7-18); CHLORIDE 105 mmol/L (98-107); CO2 29 mmol/L (21-32); GLUCOSE,RANDOM 147 mg/dL (74-106); MAGNESIUM 2.4 mg/dL (1.8-2.4); PHOSPHOROUS 4.2 mg/dL (2.5-4.9); POTASSIUM 4.9 mmol/L (3.5-5.1); SODIUM 142 mmol/L (136-145)
[2018-02-01] MEDS ORDERED: PT OWN MED DRAWER 7, Y5N ONE (09:20)
[2018-02-01] MEDS: AZITHROMYCIN IVPB 500 MG in DEXTROSE 5%-WATER - 250 ML IVPB SCH (09:22)
[2018-02-01] MEDS: ISOSORBIDE MONONITRATE 60 MG TAB.SR.24H (FP) PO SCH (09:22)
[2018-02-01] MEDS: ASPIRIN COATED 81 MG TABLET.EC PO SCH (09:22)
[2018-02-01] MEDS: ROSUVASTATIN CA 20 MG TABLET (FP) PO SCH (09:23)
[2018-02-01] MEDS: HEPARIN NA (PORCINE) 5,000 UNITS/ML 1ML VIAL SQ SCH ×2 (09:23→21:32)
[2018-02-01] MEDS: PARoxetine HCL 10 MG TABLET (FP) PO SCH (09:23)
[2018-02-01] MEDS: RANOLAZINE E.R. 500 MG TABLET (FP) PO SCH ×2 (09:23→21:32)
--- NOTE | 2018-02-01 11:14 | PN ---
Progress Note (short form) - Note Progress Note: cc: sob, wheeze, cough S: sob improving. no cp, palps, dizziness. Current Medications Generic Name Dose Route Start Last Admin Trade Name Freq PRN Reason Stop Dose Admin Albuterol Sulfate 1 amp 01/29/18 10:25 Ventolin 0.083% Nebulizer Soln - NEB Q4H PRN SHORT OF BREATH/WHEEZING Albuterol/Ipratropium 1 amp 01/30/18 16:00 02/01/18 07:39 Duoneb - NEB 1 amp RQID [facility] Administration Aspirin 81 mg 01/29/18 10:00 02/01/18 09:22 Ecotrin - PO 81 mg DAILY [facility] Administration Docusate Sodium 100 mg 01/31/18 22:00 02/01/18 05:45 Colace - PO 100 mg TID [facility] Administration Heparin Sodium (Porcine) 5,000 unit 01/29/18 10:00 02/01/18 09:23 Heparin - SQ 5,000 unit BID [facility] Administration Azithromycin 500 mg/ Dextrose 250 mls @ 250 mls/hr 01/29/18 10:00 02/01/18 09 :22 IVPB 250 mls/hr DAILY [facility] Administration Isosorbide Mononitrate 120 mg 01/29/18 10:00 02/01/18 09:22 Imdur - PO 120 mg DAILY [facility] Administration Methylprednisolone Sodium Succinate 40 mg 01/31/18 18:00 02/01/18 09:22 Solu-Medrol - IVPB 40 mg Q8H-IV [facility] Administration Metoprolol Succinate 100 mg 01/29/18 10:00 02/01/18 09:23 Toprol Xl - PO 100 mg BID [facility] Administration Montelukast Sodium 10 mg 01/30/18 22:00 01/31/18 22:12 Singulair - PO 10 mg HS [facility] Administration Non-Formulary Medication 1.2 gm 01/29/18 10:00 Mesalamine [Lialda] PO QID [facility] Paroxetine HCl 10 mg 01/29/18 10:00 02/01/18 09:23 Paxil - PO 10 mg DAILY [facility] Administration Ranolazine 500 mg 01/29/18 10:00 02/01/18 09:23 Ranexa - PO 500 mg BID [facility] Administration Rosuvastatin Calcium 40 mg 01/29/18 10:00 02/01/18 09:23 Crestor - PO 40 mg DAILY [facility] Administration Senna 2 tab 01/31/18 19:53 Senna - PO HS PRN CONSTIPATION Vital Signs Period Temp Pulse Resp BP Sys/Andino Pulse Ox Last 24 Hr 97.3 F-98.6 F 53-63 18-20 111-127/61-80 94 nad no jvd rrr s1s2 no mrg cta bl, nl eff aaox3 no le e/c/c abd nt nd pos bs no jaundice diaphoresis CBC, BMP 02/01/18 06:15 02/01/18 06:15 cxr: clear lungs ecg: sr, rbbb tele: sr echo 01/2018: nl lv/rv size/fn. nl valves. a/p: 62 m hx cad s/p cabg (1996), pci approx 2007 (no hx mi, done for cp), hld , htn, here with 1 day of sob/wheeze/cough. sob, cough, wheeze: -no signs chf. ce's negative, no signs acs. current sxs different then his prior cad sxs and have resolved with nebs so seem more URI related. -echo wnl. cad: -as above -stable, no angina -pt reports nl stress test 1 year ago -cont home asa, bb, imdur, ranexa, statin hld: -cont statin htn: -cont home meds Ok to d/c telemetry.
--- NOTE | 2018-02-01 12:34 | PN ---
Progress Note, Physician History of Present Illness: PULMONARY ALERT,FEELING BETTER,LESS DYSPNEIC,LESS COUGH - Current Medication List Current Medications: Active Medications Albuterol Sulfate (Ventolin 0.083% Nebulizer Soln -) 1 amp NEB Q4H PRN PRN Reason: SHORT OF BREATH/WHEEZING Albuterol/Ipratropium (Duoneb -) 1 amp NEB RQID [facility] Last Admin: 02/01/18 11:13 Dose: Not Given Aspirin (Ecotrin -) 81 mg PO DAILY [facility] Last Admin: 02/01/18 09:22 Dose: 81 mg Docusate Sodium (Colace -) 100 mg PO TID [facility] Last Admin: 02/01/18 05:45 Dose: 100 mg Heparin Sodium (Porcine) (Heparin -) 5,000 unit SQ BID [facility] Last Admin: 02/01/18 09:23 Dose: 5,000 unit Azithromycin 500 mg/ Dextrose 250 mls @ 250 mls/hr IVPB DAILY [facility] Last Admin: 02/01/18 09:22 Dose: 250 mls/hr Isosorbide Mononitrate (Imdur -) 120 mg PO DAILY [facility] Last Admin: 02/01/18 09:22 Dose: 120 mg Methylprednisolone Sodium Succinate (Solu-Medrol -) 40 mg IVPB Q8H-IV [facility] Last Admin: 02/01/18 09:22 Dose: 40 mg Metoprolol Succinate (Toprol Xl -) 100 mg PO BID [facility] Last Admin: 02/01/18 09:23 Dose: 100 mg Montelukast Sodium (Singulair -) 10 mg PO HS [facility] Last Admin: 01/31/18 22:12 Dose: 10 mg Non-Formulary Medication (Mesalamine [Lialda]) 1.2 gm PO QID [facility] Paroxetine HCl (Paxil -) 10 mg PO DAILY [facility] Last Admin: 02/01/18 09:23 Dose: 10 mg Ranolazine (Ranexa -) 500 mg PO BID [facility] Last Admin: 02/01/18 09:23 Dose: 500 mg Rosuvastatin Calcium (Crestor -) 40 mg PO DAILY [facility] Last Admin: 02/01/18 09:23 Dose: 40 mg Senna (Senna -) 2 tab PO HS PRN PRN Reason: CONSTIPATION - Objective Vital Signs: Vital Signs Temperature 97.6 F 03/21/18 11:15 Pulse Rate 64 02/01/18 11:15 Respiratory Rate 20 02/01/18 11:15 Blood Pressure 122/67 02/01/18 11:15 O2 Sat by Pulse Oximetry (%) 95 02/01/18 11:15 Constitutional: Yes: Well Nourished, Calm Eyes: Yes: WNL HENT: Yes: WNL Neck: Yes: WNL Cardiovascular: Yes: Regular Rate and Rhythm, S1, S2 Respiratory: Yes: Wheezes (SCATTERED BRIANDA WHEEZES) Gastrointestinal: Yes: Normal Bowel Sounds, Soft Extremities: Yes: WNL Edema: No Labs: CBC, BMP 02/01/18 06:15 02/01/18 06:15 INR, PTT INR 1.17 (0.82-1.09) 01/28/18 15:58 Assessment/Plan A/P Acute Bronchospasm improving Likely Underlying Asthma/COPD CAD s/p CABG PAD Hyperlipidemia Bipolar Disorder - continue medrol, - azithromycin - inhaled bronchodilators standing and PRN - singulair - if no significant improvement, would consider holding metoprolol until respiratory status improved - when ready for discharge would discharge on prednisone, LABA/ICS (i.e. Symbicort/Advair/Dulera) BID, singulair 10mg qHS and albuterol MDI PRN - outpt PFTs, allergy testing - DVT prophylaxis DR CARREON Problem List - Problems (1) Acute bronchospasm Code(s): J98.01 - ACUTE BRONCHOSPASM (2) CAD (coronary artery disease) Code(s): I25.10 - ATHSCL HEART DISEASE OF [place] CORONARY ARTERY W/O ANG PCTRS (3) Dyslipidemia (high LDL; low HDL) Code(s): E78.5 - HYPERLIPIDEMIA, UNSPECIFIED (4) PAD (peripheral artery disease) Code(s): I73.9 - PERIPHERAL VASCULAR DISEASE, UNSPECIFIED
--- NOTE | 2018-02-01 12:35 | PN ---
Teaching Attending Note Name of Resident: Rodney Richards ATTENDING PHYSICIAN STATEMENT I saw and evaluated the patient. I reviewed the resident's note and discussed the case with the resident. I agree with the resident's findings and plan as documented. SUBJECTIVE:breathing improved. has not ambulated much around the hospital. denies Cp, SOB, fever, chilsl, cough, N/V/C/D OBJECTIVE: Last Vital Signs Temp Pulse Resp BP Pulse Ox 97.6 F 64 20 122/67 95 02/01/18 11:15 02/01/18 11:15 02/01/18 11:15 02/01/18 11:15 02/01/18 11:15 General NAD CV S1 S2 RRR +murmur Lungs mild rales, no wheezing ASSESSMENT AND PLAN: 62 yo M with PMHx of CAD s/p CABG, admitted with recent URI like illness, shortness of breath, wheezing and mild troponin elevation. 1. Acute hypoxic respiratory distress- due to acute bronchitis vs underlying COPD. clinically improved. encouraged pt to ambulate halls to evaluate improvement. decrease medrol to BID dosing. make nebs prn instead of standing. complete 5 day course of azitrho today. check pre and post in AM to decide if requires home O2. pulmonary on board. will need PFT as outpatient 2. Tropinemia- Trop peak at 0.11. likely not cardiac. echo with no WMA. can d/c cardiac monitoring 3,. continuous THC dependence- admits to chronic continuous usage. advised he should limit use and try to eliminate as can worsen lung condition. 4. DVT ppx- hep sq 5. spoke with over the phone. verbalized plan and possibility of d/c tomorrow if can transtion to po. all questions answered. verbalized agreement with plan.
[2018-02-01] MEDS: MONTELUKAST NA 10 MG TABLET PO SCH (21:32)
[2018-02-02] MEDS: ALBUTEROL SO4 2.5/IPRATROPIUM 0.5 INH SOL 3 ML VIAL.NEB. NEB PRN ×2 (05:00→07:26)
[2018-02-02] MEDS: DOCUSATE SODIUM 100 MG CAPSULE (FP) PO SCH ×2 (05:54→13:30)
--- NOTE | 2018-02-02 06:09 | PN ---
Physical Exam: SUBJECTIVE: Patient seen and examined OBJECTIVE: Vital Signs Intake & Output 01/30/18 01/31/18 02/01/18 02/02/18 23:59 23:59 23:59 23:59 Intake Total 377 730 470 120 Output Total 1300 600 600 Balance 686 -652 -130 480 Weight 82.781 kg 83.234 kg 83.688 kg 83.688 kg Period Temp Pulse Resp BP Sys/Andino Pulse Ox Last 24 Hr 97.3 F-98.5 F 54-81 19-20 113-134/66-88 95-99 GENERAL: Elderly man in NAD, A&Ox3. Pleasant HEAD: Normal with no signs of trauma. EYES: Dilated, poorly reactive to light; EOMI, sclera anicteric, conjunctiva clear. No ptosis. ENT: Ears normal, nares patent, oropharynx clear without exudates, moist mucous membranes. NECK: Trachea midline, full range of motion, supple. LUNGS: Trace bibasilar rhonchi. No wheezing noted. HEART: Regular rate and rhythm, S1, S2 without murmur, rub or gallop. ABDOMEN: Abdomen distended. Soft, nontender, hypoactive bowel sounds, no guarding, no rebound, no hepatosplenomegaly, no masses. EXTREMITIES: 2+ pulses, warm, well-perfused, no edema. NEUROLOGICAL: Cranial nerves II through XII grossly intact. Normal speech, gait not observed. PSYCH: Normal mood, normal affect. Very pleasant SKIN: Warm, dry, normal turgor, no rashes or lesions noted Laboratory Results - last 24 hr CBC, BMP 02/01/18 06:15 02/01/18 06:15 02/01/18 02/01/18 06:15 06:15 WBC 8.7 RBC 4.52 Hgb 13.5 Hct 40.2 MCV 88.9 MCH 29.8 MCHC 33.5 RDW 15.0 Plt Count 296 MPV 8.0 Sodium 142 Potassium 4.9 Chloride 105 Carbon Dioxide 29 Anion Gap 8 BUN 25 H Creatinine 1.0 Random Glucose 147 H Calcium 9.0 Phosphorus 4.2 Magnesium 2.4 Active Medications Generic Name Dose Route Start Last Admin Trade Name Freq PRN Reason Stop Dose Admin Albuterol/Ipratropium 1 amp 02/01/18 16:51 02/02/18 05:00 Duoneb - NEB 1 amp Q4H PRN Administration SHORTNESS OF BREATH Aspirin 81 mg 01/29/18 10:00 02/01/18 09:22 Ecotrin - PO 81 mg DAILY [facility] Administration Docusate Sodium 100 mg 01/31/18 22:00 02/02/18 05:54 Colace - PO 100 mg TID [facility] Administration Heparin Sodium (Porcine) 5,000 unit 01/29/18 10:00 02/01/18 21:32 Heparin - SQ 5,000 unit BID [facility] Administration Azithromycin 500 mg/ Dextrose 250 mls @ 250 mls/hr 01/29/18 10:00 02/01/18 09 :22 IVPB 250 mls/hr DAILY [facility] Administration Isosorbide Mononitrate 120 mg 01/29/18 10:00 02/01/18 09:22 Imdur - PO 120 mg DAILY [facility] Administration Methylprednisolone Sodium Succinate 40 mg 02/01/18 22:00 02/01/18 21:32 Solu-Medrol - IVPB 40 mg BID [facility] Administration Metoprolol Succinate 100 mg 01/29/18 10:00 02/01/18 21:31 Toprol Xl - PO 100 mg BID [facility] Administration Montelukast Sodium 10 mg 01/30/18 22:00 02/01/18 21:32 Singulair - PO 10 mg HS [facility] Administration Non-Formulary Medication 1.2 gm 01/29/18 10:00 Mesalamine [Lialda] PO QID [facility] Paroxetine HCl 10 mg 01/29/18 10:00 02/01/18 09:23 Paxil - PO 10 mg DAILY [facility] Administration Ranolazine 500 mg 01/29/18 10:00 02/01/18 21:32 Ranexa - PO 500 mg BID [facility] Administration Rosuvastatin Calcium 40 mg 01/29/18 10:00 02/01/18 09:23 Crestor - PO 40 mg DAILY [facility] Administration Senna 2 tab 01/31/18 19:53 Senna - PO HS PRN CONSTIPATION Microbiology 01/28/18 15:45 Blood - Peripheral Venous Blood Culture - Preliminary NO GROWTH OBTAINED AFTER 96 HOURS, INCUBATION TO CONTINUE FOR 1 DAYS. 01/28/18 15:30 Blood - Peripheral Venous Blood Culture - Preliminary NO GROWTH OBTAINED AFTER 96 HOURS, INCUBATION TO CONTINUE FOR 1 DAYS. 01/29/18 06:00 Urine For Antigen Detection Legionella Antigen - Final 01/29/18 06:00 Urine For Antigen Detection Streptococcus pneumoniae Antigen (M - Final 01/29/18 01:00 Nasopharyngeal Swab Influenza Types A,B Antigen (CUONG) - Final 01/29/18 01:00 Nasopharyngeal Swab - Final CXR 01/28 - Impression : Previous OHS. No acute chest pathology. No comparison studies. Chest CT 01/28 - IMPRESSION: 1. No acute pathology within the chest. 2. Diffuse fatty infiltration of the liver and cholelithiasis. Local correlation and follow -up recommended. Please see above discussion. ECHO 01/30 reviewed - normal echo, no WMA, trace /MR ASSESSMENT/PLAN: 62 year old male with a significant PMH of bypass surgery in 1996, ulcerative colitis, hyperlipidemia, bipolar disorder, pre diabetes who presented to [place] ED complaining of SOB, cough and wheezing that started suddenly early in the morning. Pt continues to improve with cough and breathing, however pre and post qualify pt for home o2 with ambulation. Will d/c tomorrow w/ home o2 and f/ u with pulm group. #Respiratory distress r/o PNA/URI- CT negative for acute pathology, infiltrates ; Like bronchitis vs. reactive airway disease -flu swab negative -Legionella, PNA urine ag neg -Azithro Day 03/18. D/c tomorrow -o2 support -repeated EKG no changes - mildly elevated trops at 0.11 peak; no longer trending -cardiac monitoring -Solumedrol 40mg BID; will switch to PO prednisone tomorrow -Driver/Merchandiser consulted, recs appreciated - Pulm consulted, recs appreciated - [facility] d/c'ed - duonebs Q4h PRN #CAD; -HEART score 4; initial trop peaked at 0.11; likely not cardiac in nature -isosorbide mononitrate -Ranexa - ASA, Metoprolol #HDL: -continue Crestor #Bipolar disease: -cont home meds; paxil 10mg daily #Ulcerative colitis - chornic - c/w home mesalamine #PAD: -cont Cilostazol #pre diabetes - -HgA1c 6.3 -hold Metformin #F/E/N: PO hydration Daily lytes Na controlled diet #DVT PPX: Lovenox; SCDs #Dispo: D/c home tomorrow with home o2 Plan discussed with Dr. Aranza Richards, PGY1
[2018-02-02] MEDS: RANOLAZINE E.R. 500 MG TABLET (FP) PO SCH (09:01)
[2018-02-02] MEDS: ROSUVASTATIN CA 20 MG TABLET (FP) PO SCH (09:01)
[2018-02-02] MEDS: ASPIRIN COATED 81 MG TABLET.EC PO SCH (09:02)
[2018-02-02] MEDS: ISOSORBIDE MONONITRATE 60 MG TAB.SR.24H (FP) PO SCH (09:02)
[2018-02-02] MEDS: PARoxetine HCL 10 MG TABLET (FP) PO SCH (09:02)
[2018-02-02] MEDS: HEPARIN NA (PORCINE) 5,000 UNITS/ML 1ML VIAL SQ SCH (09:02)
[2018-02-02] MEDS: methylPREDNISolone NA SUCC 40 MG/1 ML VIAL IVPB SCH (09:03)
--- NOTE | 2018-02-02 10:31 | PN ---
Progress Note (short form) - Note Progress Note: cc: sob, wheeze, cough S: sob resolved. no cp, palps, dizziness. Current Medications Generic Name Dose Route Start Last Admin Trade Name Freq PRN Reason Stop Dose Admin Albuterol/Ipratropium 1 amp 02/01/18 16:51 02/02/18 07:26 Duoneb - NEB 1 amp Q4H PRN Administration SHORTNESS OF BREATH Aspirin 81 mg 01/29/18 10:00 02/02/18 09:02 Ecotrin - PO 81 mg DAILY HAYES Administration Docusate Sodium 100 mg 01/31/18 22:00 02/02/18 05:54 Colace - PO 100 mg TID HAYES Administration Heparin Sodium (Porcine) 5,000 unit 01/29/18 10:00 02/02/18 09:02 Heparin - SQ 5,000 unit BID HAYES Administration Isosorbide Mononitrate 120 mg 01/29/18 10:00 02/02/18 09:02 Imdur - PO 120 mg DAILY HAYES Administration Methylprednisolone Sodium Succinate 40 mg 02/01/18 22:00 02/02/18 09:03 Solu-Medrol - IVPB 40 mg BID HAYES Administration Metoprolol Succinate 100 mg 01/29/18 10:00 02/02/18 09:01 Toprol Xl - PO 100 mg BID HAYES Administration Montelukast Sodium 10 mg 01/30/18 22:00 02/01/18 21:32 Singulair - PO 10 mg HS HAYES Administration Non-Formulary Medication 1.2 gm 01/29/18 10:00 Mesalamine [Lialda] PO QID HAYES Paroxetine HCl 10 mg 01/29/18 10:00 02/02/18 09:02 Paxil - PO 10 mg DAILY HAYES Administration Ranolazine 500 mg 01/29/18 10:00 02/02/18 09:01 Ranexa - PO 500 mg BID HAYES Administration Rosuvastatin Calcium 40 mg 01/29/18 10:00 02/02/18 09:01 Crestor - PO 40 mg DAILY HAYES Administration Senna 2 tab 01/31/18 19:53 Senna - PO HS PRN CONSTIPATION Vital Signs Period Temp Pulse Resp BP Sys/Andino Pulse Ox Last 24 Hr 97.3 F-98.5 F 54-81 19-20 113-134/66-88 95-99 nad no jvd rrr s1s2 no mrg cta bl, nl eff aaox3 no le e/c/c abd nt nd pos bs no jaundice diaphoresis CBC, BMP 02/01/18 06:15 02/01/18 06:15 cxr: clear lungs ecg: sr, rbbb tele: sr echo 01/2018: nl lv/rv size/fn. nl valves. a/p: 62 m hx cad s/p cabg (1996), pci approx 2007 (no hx mi, done for cp), hld , htn, here with 1 day of sob/wheeze/cough. sob, cough, wheeze: -no signs chf. ce's negative, no signs acs. current sxs different then his prior cad sxs and have resolved with nebs so seem more URI related. -echo wnl. cad: -as above -stable, no angina -pt reports nl stress test 1 year ago -cont home asa, bb, imdur, ranexa, statin hld: -cont statin htn: -cont home meds cardiac [place] stable for dc
[2018-02-02 12:19] VITALS: BP 145/89; PULSE 63; TEMP 97.8
--- NOTE | 2018-02-02 12:48 | PN ---
Teaching Attending Note Name of Resident: Rodney Richards ATTENDING PHYSICIAN STATEMENT I saw and evaluated the patient. I reviewed the resident's note and discussed the case with the resident. I agree with the resident's findings and plan as documented. SUBJECTIVE:breathing imrpoved. continues to have cough but less frequently. deneis Cp, SOB, fever, chills OBJECTIVE: Last Vital Signs Temp Pulse Resp BP Pulse Ox 97.8 F 63 18 145/89 98 02/02/18 10:00 02/02/18 10:00 02/02/18 10:00 02/02/18 10:02/02/18 09:00 General NAD CV S1 S2 RRR +murmur Lungs CTA B/L no wheezing/rales/rhonchi ASSESSMENT AND PLAN: 62 yo M with PMHx of CAD s/p CABG, admitted with recent URI like illness, shortness of breath, wheezing and mild troponin elevation. 1. Acute hypoxic respiratory distress- due to acute bronchitis vs underlying COPD. clinically improved. on medrol 40mg BID. will transition to po to start tomorrow. slow taper decrease by 10mg every 3 days. qualified for home O2 as O2 dropped to 85% requiring 3L NC to maintain sats. encouraged pt to f/u with Pulmonary as outpatient. cont symbicort, singulair and albuterol. 2. Tropinemia- Trop peak at 0.11. likely not cardiac. echo with no WMA. can d/c cardiac monitoring 3,. continuous THC dependence- admits to chronic continuous usage. advised he should limit use and try to eliminate as can worsen lung condition. 4. DVT ppx- hep sq 5. spoke with over the phone. all questions answered. verbalized understanding and agreement with plan. d/c home
--- NOTE | 2018-02-02 13:43 | DS ---
Physical Exam: SUBJECTIVE: Patient seen and examined by me this AM - No overnight events. Breathing continues to improved. Still with mild, nonproductive cough and trace wheezing per pt. Denies f/c/n/v/d, CP, SOB, ab pain, LE edema, focal neurologic deficits, dizziness, vision changes. Pt counseled on need for home O2 when ambulating, discharge medications, f/u with pulmonary team and lifestyle modifications. on phone during counseling, all questions answered. OBJECTIVE: Vital Signs Period Temp Pulse Resp BP Sys/Andino Pulse Ox Last 24 Hr 97.3 F-98.5 F 54-81 18-20 113-145/66-89 97-99 PHYSICAL EXAM GENERAL: Elderly man in NAD, A&Ox3. Pleasant HEAD: Normal with no signs of trauma. EYES: Dilated, poorly reactive to light; EOMI, sclera anicteric, conjunctiva clear. No ptosis. ENT: Ears normal, nares patent, oropharynx clear without exudates, moist mucous membranes. NECK: Trachea midline, full range of motion, supple. LUNGS: Trace bibasilar rhonchi. No wheezing noted. HEART: Regular rate and rhythm, S1, S2 without murmur, rub or gallop. ABDOMEN: Abdomen distended. Soft, nontender, hypoactive bowel sounds, no guarding, no rebound, no hepatosplenomegaly, no masses. EXTREMITIES: 2+ pulses, warm, well-perfused, no edema. NEUROLOGICAL: Cranial nerves II through XII grossly intact. Normal speech, gait not observed. PSYCH: Normal mood, normal affect. Very pleasant SKIN: Warm, dry, normal turgor, no rashes or lesions noted LABS Laboratory Last Values WBC 8.7 K/mm3 (4.0-10.0) 02/01/18 06:15 RBC 4.52 M/mm3 (4.00-5.60) 02/01/18 06:15 Hgb 13.5 GM/dL (11.7-16.9) 02/01/18 06:15 Hct 40.2 % (35.4-49) 02/01/18 06:15 MCV 88.9 fl (80-96) 02/01/18 06:15 MCH 29.8 pg (25.7-33.7) 02/01/18 06:15 MCHC 33.5 g/dl (32.0-35.9) 02/01/18 06:15 RDW 15.0 % (11.9-15.9) 02/01/18 06:15 Plt Count 296 K/MM3 (134-434) 02/01/18 06:15 MPV 8.0 fl (7.5-11.1) 02/01/18 06:15 Neutrophils % 68.3 % (42.8-82.8) 01/30/18 07:30 Lymphocytes % 20.7 % (8-40) D 01/30/18 07:30 Monocytes % 10.4 % (3.8-10.2) H 01/30/18 07:30 Eosinophils % 0.3 % (0-4.5) D 01/30/18 07:30 Basophils % 0.3 % (0-2.0) 01/30/18 07:30 PT with INR 13.1 SEC (10.2-13.0) H 01/28/18 15:58 INR 1.17 (0.82-1.09) 01/28/18 15:58 Sodium 142 mmol/L (136-145) 02/01/18 06:15 Potassium 4.9 mmol/L (3.5-5.1) 02/01/18 06:15 Chloride 105 mmol/L (98-107) 02/01/18 06:15 Carbon Dioxide 29 mmol/L (21-32) 02/01/18 06:15 Anion Gap 8 (8-16) 02/01/18 06:15 BUN 25 mg/dL (7-18) H 02/01/18 06:15 Creatinine 1.0 mg/dL (0.7-1.3) 02/01/18 06:15 Creat Clearance w eGFR > 60 (>60) 01/29/18 06:30 Random Glucose 147 mg/dL (74-106) H 02/01/18 06:15 Hemoglobin A1c % 6.3 % (4.8-6.0) H 01/29/18 06:30 Lactic Acid 2.0 mmol/L (0.0-2.0) 01/28/18 15:30 Calcium 9.0 mg/dL (8.5-10.1) 02/01/18 06:15 Phosphorus 4.2 mg/dL (2.5-4.9) 02/01/18 06:15 Magnesium 2.4 mg/dL (1.8-2.4) 02/01/18 06:15 Total Bilirubin 0.2 mg/dL (0.2-1.0) 01/29/18 06:30 AST 27 U/L (15-37) 01/29/18 06:30 ALT 37 U/L (12-78) 01/29/18 06:30 Alkaline Phosphatase 45 U/L (45-117) 01/29/18 06:30 Troponin I 0.11 ng/ml (0.00-0.05) H 01/28/18 23:30 B-Natriuretic Peptide 248.74 pg/ml (5-125) H 01/28/18 15:53 Total Protein 8.0 g/dl (6.4-8.2) 01/29/18 06:30 Albumin 4.0 g/dl (3.4-5.0) 01/29/18 06:30 Triglycerides 111 mg/dL (35-160) 01/29/18 06:30 Cholesterol 117 mg/dL (50-200) 01/29/18 06:30 Total LDL Cholesterol 64 mg/dL (5-100) 01/29/18 06:30 HDL Cholesterol 46 mg/dL (40-60) 01/29/18 06:30 TSH 1.33 uIU/ml (0.358-3.74) 01/29/18 06:30 Microbiology 01/28/18 15:45 Blood - Peripheral Venous Blood Culture - Preliminary NO GROWTH OBTAINED AFTER 96 HOURS, INCUBATION TO CONTINUE FOR 1 DAYS. 01/28/18 15:30 Blood - Peripheral Venous Blood Culture - Preliminary NO GROWTH OBTAINED AFTER 96 HOURS, INCUBATION TO CONTINUE FOR 1 DAYS. 01/29/18 06:00 Urine For Antigen Detection Legionella Antigen - Final 01/29/18 06:00 Urine For Antigen Detection Streptococcus pneumoniae Antigen (M - Final 01/29/18 01:00 Nasopharyngeal Swab Influenza Types A,B Antigen (CUONG) - Final 01/29/18 01:00 Nasopharyngeal Swab - Final CXR 01/28 - Impression : Previous OHS. No acute chest pathology. No comparison studies. Chest CT 01/28 - IMPRESSION: 1. No acute pathology within the chest. 2. Diffuse fatty infiltration of the liver and cholelithiasis. Local correlation and follow -up recommended. Please see above discussion. ECHO 01/30 reviewed - normal echo, no WMA, trace /MR Consults: Cardiology - Seen by Dr. Dixon Pulmonary - Seen by Dr. Trujillo [facility] COURSE: Prehospital course: Pt is a 62 year old male with a significant PMH of bypass surgery in 1996, ulcerative colitis, hyperlipidemia, bipolar disorder, pre diabetes, PAD who presented to [facility] ED complaining of SOB, cough and wheezing that started suddenly early in the morning. He states that it got worse, was associated with lightheadedness, so he decided to come to ED. He is coughing up yellow sputum. The patient states his dyspnea is made worse with exertion and while lying down. Earlier today he also had several episodes of loose, non bloody bowel movements. He also states that his daughter had flu last week. The pt denies having chest pain, palpitations, LOC. He is compliant with taking his medications, doctors appointments but he doesn't remember last time he had ECHO. he denies nausea, vomiting, fever, chills. He denies muscle pain and sore throat. On admission: In ed, pt was HTN to 166/94 with no fever, sat 88% on RA. Pt was placed on 4L NC w/ correction to high 90s. Lab notable for equivocal BNP and no other abnormalities, no wbc count. Hgb A1C 6.3. Blood cultures were sent, pt received one dose of rocephin, AZA. Flu swab performed and pt received dose of tamiflu, however later negative and tamiflu d/c'ed. Urine PNA antigen's sent, all negative on results. CXR and CT were both performed, no lung pathology noted. EKG was unremarkable. Trops 0.10 initially, f/u 0.11. Echo results as noted above. Cardiology and pulmonology consulted. Pt started on 5 day course of AZA, IV medrol, singulair, duonebs and ventolin PRN. No WBC count or fevers during admission. Pt improved progressively with treatment. Discharged on symbicort, ventolin MDI, PO prednisone taper and singulair, with outpt f/u with pulm team. Pt will require outpt PFTs for further evaluation of possible COPD vs. reactive airway disease. Pt discharged on home oxygen with ambulation. Date of Admission:01/28/18 Date of Discharge: 02/02/18 Pt is medically stable and cleared for discharge with outpt follow-up with PCP and pulmonology group for further management and work-up of reactive airway dz vs. COPD. Minutes to complete discharge: 35 Discharge Summary Reason For Visit: CHEST HEAVINESS, DIFF BREATHING Current Active Problems Acute bronchospasm (Acute) Bronchitis (Acute) Reactive airway disease (Acute) CAD (coronary artery disease) (Chronic) Dyslipidemia (high LDL; low HDL) (Chronic) PAD (peripheral artery disease) (Chronic) Condition: Stable - Instructions Diet, Activity, Other Instructions: During your stay at [facility], you were treated for acute bronchitis/reactive airway disease. You received treatment and your symptoms have since improved. You will require further evaluation for possible diagnosis of COPD as an outpatient. Medications: The following medications were added to your regimen. Please take them as described below: Prednisone 40mg, four pills by mouth, once a day for three days Prednisone 30mg, three pills by mouth, once a day for three days Prednisone 20mg, two pills by mouth, once a day for three days Prednisone 10mg, one pills by mouth, once a day for three days Then stop taking this medication Symbicort, 2 puff twice a day. Please follow up with your Primary care physician regarding further continuation of this medication Singulair 10mg, one pill by mouth before bedtime. Albuterol inhaler, 1 puff every four hours, if you become short of breath Please continue to take all other home medications as previously directed. Follow-ups: Please follow-up with your primary care physician in 1 week for further management of your medications. Please follow-up with our brake rider, Dr. Trujillo, in one week for further management of your respiratory condition. His contact number has been provided in this packet. Please call his office to make an appointment. You will require outpatient pulmonary function testing with our pulmonology team to further evaluate your lung function. Please bring this to their attention during your visit. Diet/exercise: Please avoid any exposure to smoke or other allergens that could trigger your respiratory condition to worsen. You are being provided with home oxygen. Please use this oxygen when walking or exercising. You will require further evaluation by our pulmonary team for your jail oxygen requirements. Your goal level of oxygen level should be greater than 90% Please return to the hospital if you experience any of the following symptoms: - Worsening shortness of breath, chest tightness or persistent wheezing - Worsening, productive cough - Persistent fevers or chills - Pesistent chest pain - Any new or concerning symptoms Referrals: Dago Trujillo MD [Staff Physician] - Disposition: HOME - Home Medications Comprehensive Discharge Medication List: Ambulatory Orders Ascorbic Acid [Vitamin C] 1,000 mg PO DAILY 01/28/18 Aspirin [Aspirin EC] 81 mg PO DAILY 01/28/18 Cholecalciferol (Vitamin D3) [Vitamin D3] 1,000 unit PO DAILY 01/28/18 Cilostazol [Pletal -] 100 mg PO DAILY 01/28/18 Cyanocobalamin (Vitamin B-12) [Vitamin B12] 1,000 mcg PO DAILY 01/28/18 Fenofibrate Nanocrystallized [Tricor] 145 mg PO DAILY 01/28/18 Glucosa Guidry 2Kcl/Chondroitin Guidry [Glucosamine & Chondroitin Cap] 2 each PO DAILY 01/28/18 Isosorbide Mononitrate [Isosorbide Mononitrate ER] 120 mg PO DAILY 01/28/18 Melatonin 10 mg PO DAILY 01/28/18 Mesalamine [Lialda] 1.2 gm PO QID 01/28/18 Metoprolol Succinate [Toprol Xl] 100 mg PO BID 01/28/18 Multivit-Min/FA/Lycopen/Lutein [Centrum Silver Tablet] 1 each PO DAILY 01/28/18 Paroxetine HCl [Paxil] 10 mg PO DAILY 01/28/18 Pilocarpine HCl 7.5 mg PO QID 01/28/18 Quetiapine Fumarate [Seroquel -] 500 mg PO DAILY 01/28/18 Ranolazine [Ranexa] 500 mg PO BID 01/28/18 Rosuvastatin Calcium [Crestor] 40 mg PO DAILY 01/28/18 Welchol 625 mg PO ASDIR 01/28/18 Albuterol 0.083% Nebulizer Kourtney [Ventolin 0.083% Nebulizer Soln -] 1 amp NEB Q4H PRN #1 amp 02/02/18 Budesonide/Formeterol Fumarate [SYMBICORT 160/4.5mcg -] 2 inh PO BID #1 cannister 02/02/18 Montelukast Na [Singulair -] 10 mg PO HS #30 tablet 02/02/18 Prednisone 10 mg PO DAILY 12 Days #30 tablet 02/02/18 metFORMIN HCL [Glucophage -] 500 mg PO TID 02/02/18 This patient is new to me today: No Emergency Visit: Yes ED Registration Date: 01/28/18 Care time: The patient presented to the Emergency Department on the above date and was hospitalized for further evaluation of their emergent condition. Critical Care patient: No - Discharge Referral Referred to [facility] Med P.C.: No
--- NOTE | 2018-02-02 13:50 | PN ---
Progress Note (short form) - Note Progress Note: PULMONARY Breathing slowly improving. Cough resolving but still wheezing. Last Vital Signs Temp Pulse Resp BP Pulse Ox 97.8 F 63 18 145/89 98 02/02/18 10:00 02/02/18 10:00 02/02/18 10:00 02/02/18 10:00 02/02/18 09:00 Gen: NAD at rest Heart: RRR Lung: scattered rhonchi, wheezes Abd: soft, nontender Ext: no edema CBC, BMP 02/01/18 06:15 02/01/18 06:15 Active Medications Albuterol/Ipratropium (Duoneb -) 1 amp NEB Q4H PRN PRN Reason: SHORTNESS OF BREATH Last Admin: 02/02/18 07:26 Dose: 1 amp Aspirin (Ecotrin -) 81 mg PO DAILY [facility] Last Admin: 02/02/18 09:02 Dose: 81 mg Docusate Sodium (Colace -) 100 mg PO TID [facility] Last Admin: 02/02/18 13:30 Dose: 100 mg Heparin Sodium (Porcine) (Heparin -) 5,000 unit SQ BID [facility] Last Admin: 02/02/18 09:02 Dose: 5,000 unit Isosorbide Mononitrate (Imdur -) 120 mg PO DAILY [facility] Last Admin: 02/02/18 09:02 Dose: 120 mg Metformin HCl (Glucophage -) 1,500 mg PO DAILY@0700 [facility] Methylprednisolone Sodium Succinate (Solu-Medrol -) 40 mg IVPB BID [facility] Last Admin: 02/02/18 09:03 Dose: 40 mg Metoprolol Succinate (Toprol Xl -) 100 mg PO BID [facility] Last Admin: 02/02/18 09:01 Dose: 100 mg Montelukast Sodium (Singulair -) 10 mg PO HS [facility] Last Admin: 02/01/18 21:32 Dose: 10 mg Non-Formulary Medication (Mesalamine [Lialda]) 1.2 gm PO QID [facility] Paroxetine HCl (Paxil -) 10 mg PO DAILY [facility] Last Admin: 02/02/18 09:02 Dose: 10 mg Ranolazine (Ranexa -) 500 mg PO BID [facility] Last Admin: 02/02/18 09:01 Dose: 500 mg Rosuvastatin Calcium (Crestor -) 40 mg PO DAILY [facility] Last Admin: 02/02/18 09:01 Dose: 40 mg Senna (Senna -) 2 tab PO HS PRN PRN Reason: CONSTIPATION A/P Acute Bronchospasm Likely Underlying Asthma/COPD CAD s/p CABG PAD Hyperlipidemia Bipolar Disorder - can change steroids to PO - complete 5 day course of azithromycin - inhaled bronchodilators standing and PRN - continue singulair - when ready for discharge would discharge on prednisone, LABA/ICS (i.e. Symbicort/Advair/Dulera) BID, singulair 10mg qHS and albuterol MDI PRN - will need outpt PFTs, allergy testing and follow up - DVT prophylaxis Problem List - Problems (1) Acute bronchospasm Code(s): J98.01 - ACUTE BRONCHOSPASM (2) CAD (coronary artery disease) Code(s): I25.10 - ATHSCL HEART DISEASE OF [place] CORONARY ARTERY W/O ANG PCTRS (3) Dyslipidemia (high LDL; low HDL) Code(s): E78.5 - HYPERLIPIDEMIA, UNSPECIFIED (4) PAD (peripheral artery disease) Code(s): I73.9 - PERIPHERAL VASCULAR DISEASE, UNSPECIFIED
[2018-02-03] MEDS ORDERED: metFORMIN HCL 500 MG TABLET (FP) PO SCH (07:00)
== END 2018-02-02 13:57 | disposition home or self-care (01) | DRG 202 ==
LOC: FER 14:29 → J4S 20:02
PROVIDERS: ADMIT Internal Medicine; ATTEND Internal Medicine
DX: J20.9 Acute bronchitis, unspecified (principal); K51.90 Ulcerative colitis, unspecified, without complications; R09.02 Hypoxemia; F12.20 Cannabis dependence, uncomplicated; R07.89 Other chest pain; R73.03 Prediabetes; E78.5 Hyperlipidemia, unspecified; I45.10 Unspecified right bundle-branch block; I25.10 Atherosclerotic heart disease of native coronary artery without angina pectoris; Z95.1 Presence of aortocoronary bypass graft; Z87.891 Personal history of nicotine dependence; Z79.84 Long term (current) use of oral hypoglycemic drugs; K76.0 Fatty (change of) liver, not elsewhere classified; K80.80 Other cholelithiasis without obstruction; F31.9 Bipolar disorder, unspecified; I73.9 Peripheral vascular disease, unspecified; E78.00 Pure hypercholesterolemia, unspecified
CPT/HCPCS: 36415; 71045-TC-FY; 71250-TC; 80048; 80053; 80061; 83036; 83605; 83721; 83735; 83880; 84100; 84443; 84484; 85025; 85027; 85610; 87040; 87804; 87899; 93005; 93010; 93306-TC; 94640; 94761; 97116-GP; 97161-GP; 99283-25; J1644

== ENCOUNTER 2019-02-16 07:27 | Inpatient (IN) | payer OTHER, BC ==
--- NOTE | 2019-02-16 07:44 | PDOC ---
History of Present Illness - General Stated Complaint: CVA/TIA Time Seen by Provider: 02/16/19 07:33 - History of Present Illness Initial Comments: 02/16/19 07:46 63yo M hx bypass surgery in 1996, ulcerative colitis, hyperlipidemia, bipolar disorder, pre diabetes, PAD, COPD presents to the ED with slurred speech and gait instability. Pt's noted speech abnormality at 6:30AM. Pt attempted to stand and walk and per was leaning on the wall which is abnormal. Pt's also states he was having word finding difficulty, and speaking "gibberish Pt last seen speaking normally last night at 11pm. Pt denies focal weakness/ numbness, headache, CP, SOB. No hx similar sxs. Pt was in [facility] yesterday, no recent fevers, chills, stiff neck, abd pain, LE edema/pain, urinary sxs, rashes. no recent travel. NIH Stroke Scale - Last Known Well Date/Time & Onset Date Last Known Well: 02/15/19 Time Last Known Well: 23:00 - Initial Evaluation Level of consciousness: Not alert, but arousable with minimal stimulation Ask patient the month and their age: Answers both correctly Ask patient to open & close eyes; make fist and let go: Obeys both correctly Best gaze (horizontal eye movement): Normal Visual field testing: No visual field loss Facial paresis (Show teeth/raise eyebrows/close eyes tight): Normal symmetrical movement Motor Function: Left Arm: Normal Motor Function: Right Arm: Normal (extends arm 90 (or 45) degrees for 10 seconds without drift Motor Function: Left Leg: Normal (extends leg 30 degrees for 5 seconds without drift) Motor Function: Right Leg: Normal (extends leg 30 degrees for 5 seconds without drift) Limb Ataxia: No ataxia Sensory(Use pinprick test arms,legs,trunk,face/side to side): Normal Best language (Describe picture, name items, read sentences): Mild to moderate aphasia Dysarthria (read several words): Mild to moderate slurring of words Extinction and Inattention: No abnormality - Total Score NIH Stroke Scale Score: 3 Past History - Past Medical History Allergies/Adverse Reactions: Allergies Allergy/AdvReac Type Severity Reaction Status Date / Time ciprofloxacin [From Cipro] Allergy Verified 01/28/18 14:33 Penicillins Allergy Verified 01/28/18 14:33 Home Medications: Ambulatory Orders Ascorbic Acid [Vitamin C] 1,000 mg PO DAILY 01/28/18 Aspirin [Aspirin EC] 81 mg PO DAILY 01/28/18 Cholecalciferol (Vitamin D3) [Vitamin D3] 1,000 unit PO DAILY 01/28/18 Cilostazol [Pletal -] 100 mg PO DAILY 01/28/18 Cyanocobalamin (Vitamin B-12) [Vitamin B12] 1,000 mcg PO DAILY 01/28/18 Fenofibrate Nanocrystallized [Tricor] 145 mg PO DAILY 01/28/18 Glucosa Guidry 2Kcl/Chondroitin Guidry [Glucosamine & Chondroitin Cap] 2 each PO DAILY 01/28/18 Isosorbide Mononitrate [Isosorbide Mononitrate ER] 120 mg PO DAILY 01/28/18 Melatonin 10 mg PO DAILY 01/28/18 Mesalamine [Lialda] 1.2 gm PO QID 01/28/18 Metoprolol Succinate [Toprol Xl] 100 mg PO BID 01/28/18 Multivit-Min/FA/Lycopen/Lutein [Centrum Silver Tablet] 1 each PO DAILY 01/28/18 Paroxetine HCl [Paxil] 10 mg PO DAILY 01/28/18 Pilocarpine HCl 7.5 mg PO QID 01/28/18 Quetiapine Fumarate [Seroquel -] 500 mg PO DAILY 01/28/18 Ranolazine [Ranexa] 500 mg PO BID 01/28/18 Rosuvastatin Calcium [Crestor] 40 mg PO DAILY 01/28/18 Albuterol 0.083% Nebulizer Kourtney [Ventolin 0.083% Nebulizer Soln -] 1 amp NEB Q4H PRN #1 amp 02/02/18 Budesonide/Formeterol Fumarate [SYMBICORT 160/4.5mcg -] 2 inh PO BID #1 cannister 02/02/18 Montelukast Na [Singulair -] 10 mg PO HS #30 tablet 02/02/18 metFORMIN HCL [Glucophage -] 500 mg PO TID 02/02/18 Colesevelam HCl 625 mg PO ASDIR 02/16/19 Cardiac Disorders: Yes (cad,quintuple bypass) CVA: No COPD: No GI Disorders: Yes (colitis) Hypercholesterolemia: Yes Psychiatric Problems: Yes (bipolar) - Surgical History Abdominal Surgery: Yes (umbilical hernia repair) Cardiac Surgery: Yes - Suicide/Smoking/Psychosocial Hx Smoking History: Former smoker Have you smoked in the past 12 months: No If you are a former smoker, when did you quit?: 25 yrs ago Hx Alcohol Use: No Drug/Substance Use Hx: No Substance Use Type: None Hx Substance Use Treatment: No Review of Systems - Review of Systems Comments:: 02/16/19 08:04 GENERAL/CONSTITUTIONAL: No fever or chills. No weakness. HEAD, EYES, EARS, NOSE AND THROAT: No change in vision. No ear pain or discharge. No sore throat. GASTROINTESTINAL: No nausea, vomiting, diarrhea or constipation. GENITOURINARY: No dysuria, frequency, or change in urination. CARDIOVASCULAR: No chest pain or shortness of breath. RESPIRATORY: No cough, wheezing, or hemoptysis. MUSCULOSKELETAL: No joint or muscle swelling or pain. No neck or back pain. SKIN: No rash NEUROLOGIC: No headache, vertigo, loss of consciousness, or change in strength/ sensation. +slurred speech ENDOCRINE: No increased thirst. No abnormal weight change. HEMATOLOGIC/LYMPHATIC: No anemia, easy bleeding, or history of blood clots. ALLERGIC/IMMUNOLOGIC: No hives or skin allergy. *Physical Exam - Physical Exam Comments: 02/16/19 08:44 GENERAL: Awake, alert, and fully oriented, sleepy but arousable, in no acute distress EYES: PERRLA, EOMI, sclera anicteric, conjunctiva clear ENT: Oropharynx clear without exudates. Moist mucosa LUNGS: Breath sounds equal, clear to auscultation bilaterally. No wheezes, and no crackles HEART: Regular rate and rhythm, normal S1 and S2, no murmurs, rubs or gallops. Large midline sternal scar, well healed ABDOMEN: Soft, nontender, normoactive bowel sounds. No guarding, no rebound. No masses EXTREMITIES: Normal range of motion, no edema. No cords, erythema, or tenderness NEUROLOGICAL: +slurred speech, able to repeat "no ifs, ands or buts, cranial nerves intact, negative pronator drift, 5/5 strength in all 4 extremities, normal sensation to light touch in all 4 extremities, normal cerebellar exam, gait deferred SKIN: Warm, Dry, normal turgor, no rashes or lesions noted. Rectal temp 98.3 Heart Score/ECG Review #1 02/16/19 08:48 Twelve-lead EKG was performed and reviewed by me. Normal sinus rhythm, rate 75. Normal axis.+ Right bundle branch block. When compared to EKG from 01/28/2018, no significant changes. ED Treatment Course - LABORATORY CBC & Chemistry Diagram: 02/16/19 07:32 02/16/19 07:32 - RADIOLOGY Radiology Studies Ordered: Category Date Time Status HEAD CT (STROKE) [CT] Stat CT Scan 02/16/19 07:30 Ordered Medical Decision Making - Medical Decision Making 02/16/19 07:49 63yo M hx CAD s/p bypass, COPD, AUGUST, PAD, HL presents to the ED with slurred speech, gait instability. Vitals unremarkable. Exam with slurred speech, some word finding difficulty. NIHSS 3. DDx includes but not limited to CVA vs TIA vs metabolic disarray vs infection. EKG unchanged. Plan for stroke w/u, admit 02/16/19 08:50 Speech more fluent now, NIHSS 0. Labs, neuro c/s pending. 02/16/19 10:[address] Koo, MRI ordered Pt has L ear hearing bone implant, per Dr. Perez's (ENT) office, it is MRI compatible They are faxing over the form Labs unremarkable Case discussed with Dr. Martin, pt accepted for admission to Dr. Yang Case discussed in detail with admitting physician including history, physical exam and ancillary studies. Admitting physician has assumed care for the patient, will follow all pending diagnostics and will complete the evaluation and treatment. *DC/Admit/Observation/Transfer Diagnosis at time of Disposition: Slurred speech - Discharge Dispostion Condition at time of disposition: Stable Decision to Admit order: Yes - Referrals Referrals: Mason Marti [Primary Care Provider] - - Patient Instructions - Post Discharge Activity - Attestations Physician Attestion: 02/16/19 10:24 I, Dr. Ganesh Olivera MD, attest that this document has been prepared under my direction and personally reviewed by me in its entirety. I further attest, that it accurately reflects all work, treatment, procedures and medical decision -making performed by me.
[2019-02-16] MEDS: SODIUM CHLORIDE 1,000 ML IV SCH (08:23)
[2019-02-16 08:59] LABS: BASO % 1.1 % (0-2.0); EOS % 0.9 % (0-4.5); HEMATOCRIT 39.2 % (35.4-49); HEMOGLOBIN 13.1 GM/dL (11.7-16.9); LYMPH % 20.9 % (8-40); MCH 30.2 pg (25.7-33.7); MCHC 33.4 g/dl (32.0-35.9); MEAN CELL VOLUME 90.5 fl (80-96); MEAN PLT VOLUME 8.1 fl (7.5-11.1); NEUT % 67.1 % (42.8-82.8); PLATELET COUNT 224 K/MM3 (134-434); RBC 4.33 M/mm3 (4.00-5.60); RDW 14.9 % (11.9-15.9)
[2019-02-16 09:18] LABS: INR 1.13 (0.83-1.09); PROTHROMBIN TIME (PATIENT) 13.4 SEC (9.7-13.0)
[2019-02-16 09:25] LABS: ALBUMIN 3.6 g/dl (3.4-5.0); ALK PHOS 35 U/L (45-117); ANION GAP 4 MMOL/L (8-16); BILIRUBIN,TOTAL 0.3 mg/dL (0.2-1); BLOOD UREA NITROGEN 22 mg/dL (7-18); CALCIUM 8.8 mg/dL (8.5-10.1); CHLORIDE 111 mmol/L (98-107); CHOLESTEROL 90 mg/dL (50-200); CO2 24 mmol/L (21-32); CREATININE 1.3 mg/dL (0.55-1.3); GLUCOSE,RANDOM 114 mg/dL (74-106); HDL CHOLESTEROL 28 mg/dL (40-60); POTASSIUM 4.6 mmol/L (3.5-5.1); SGOT/AST 21 U/L (15-37); SGPT/ALT 32 U/L (13-61); SODIUM 139 mmol/L (136-145); TOT PROT 7.1 g/dl (6.4-8.2); TRIGLYCERIDES 123 mg/dL (0-150)
[2019-02-16] MEDS ORDERED: ASPIRIN 325 MG TABLET PO ONE (09:31)
[2019-02-16] MEDS ORDERED: ASPIRIN 325 MG TABLET ONE (09:40)
--- NOTE | 2019-02-16 09:57 | CON.NEURO ---
Consult Consult Specialty:: Hanane Referred by:: ER - History of Present Illness History of Present Illness: patient is a 63-year-old right-handed man presents to the emergency room with slurred speech and difficulty with his gait. Shay is a 89 right-handed man with extensive cardiac history, coronary artery disease, COPD, hypertension was on aspirin workup this morning was lethargic tired noted that the patient is slurring his speech I spoke to the emergency room stroke protocol was initiated when the patient came to the emergency room he was taken to the CAT scan upon arrival CAT scan of the head was reported as negative. Decision was made not to give the patient TPA because the patient got better in the emergency room patient was given full aspirin. Patient was not in cardiac arrhythmia. I personally evaluated the patient in the emergency room patient with extensive psych history history of bipolar disorder patient sees psychiatrist patient is on an extensive psych medication - History Source History Provided By: Patient Limitations to Obtaining History: No Limitations - Past Medical History Cardio/Vascular: Yes: CAD, Hyperlipdemia Gastrointestinal: Yes: Ulcerative Colitis - Alcohol/Substance Use Hx Alcohol Use: No - Smoking History Smoking history: Former smoker Have you smoked in the past 12 months: No If you are a former smoker, when did you quit?: 25 yrs ago Home Medications - Allergies Allergies/Adverse Reactions: Allergies Allergy/AdvReac Type Severity Reaction Status Date / Time ciprofloxacin [From Cipro] Allergy Verified 01/28/18 14:33 Penicillins Allergy Verified 01/28/18 14:33 - Home Medications Home Medications: Ambulatory Orders Ascorbic Acid [Vitamin C] 1,000 mg PO DAILY 01/28/18 Aspirin [Aspirin EC] 81 mg PO DAILY 01/28/18 Cholecalciferol (Vitamin D3) [Vitamin D3] 1,000 unit PO DAILY 01/28/18 Cilostazol [Pletal -] 100 mg PO DAILY 01/28/18 Cyanocobalamin (Vitamin B-12) [Vitamin B12] 1,000 mcg PO DAILY 01/28/18 Fenofibrate Nanocrystallized [Tricor] 145 mg PO DAILY 01/28/18 Glucosa Guidry 2Kcl/Chondroitin Guidry [Glucosamine & Chondroitin Cap] 2 each PO DAILY 01/28/18 Isosorbide Mononitrate [Isosorbide Mononitrate ER] 120 mg PO DAILY 01/28/18 Melatonin 10 mg PO DAILY 01/28/18 Mesalamine [Lialda] 1.2 gm PO QID 01/28/18 Metoprolol Succinate [Toprol Xl] 100 mg PO BID 01/28/18 Multivit-Min/FA/Lycopen/Lutein [Centrum Silver Tablet] 1 each PO DAILY 01/28/18 Paroxetine HCl [Paxil] 10 mg PO DAILY 01/28/18 Pilocarpine HCl 7.5 mg PO QID 01/28/18 Quetiapine Fumarate [Seroquel -] 500 mg PO DAILY 01/28/18 Ranolazine [Ranexa] 500 mg PO BID 01/28/18 Rosuvastatin Calcium [Crestor] 40 mg PO DAILY 01/28/18 Albuterol 0.083% Nebulizer Kourtney [Ventolin 0.083% Nebulizer Soln -] 1 amp NEB Q4H PRN #1 amp 02/02/18 Budesonide/Formeterol Fumarate [SYMBICORT 160/4.5mcg -] 2 inh PO BID #1 cannister 02/02/18 Montelukast Na [Singulair -] 10 mg PO HS #30 tablet 02/02/18 metFORMIN HCL [Glucophage -] 500 mg PO TID 02/02/18 Colesevelam HCl 625 mg PO ASDIR 02/16/19 Review of Systems - Review of Systems Constitutional: reports: No Symptoms Eyes: reports: No Symptoms Physical Exam-Neuro Vital Signs: Vital Signs Temperature 98.3 F 02/16/19 07:30 Pulse Rate 72 02/16/19 09:15 Respiratory Rate 13 02/16/19 09:15 Blood Pressure 95/62 02/16/19 09:15 O2 Sat by Pulse Oximetry (%) 96 02/16/19 09:15 Labs: CBC, BMP 02/16/19 07:32 02/16/19 07:32 INR, PTT INR 1.13 (0.83-1.09) H 02/16/19 07:32 - Neuro Exam Level Of Consciousness: Yes: Oriented to Person, Oriented to Place, Oriented to Time Eyes: Yes: PERRLA Speech: WNL Dominant Hand: Right Cranial Nerves II-XII Intact: Yes Gag: Present DTR's: 1+ Left Bicep, 1+ Right Bicep, 1+ Left Brachioradialis, 1+ Right Brachioradialis Response to light touch: Normal Response to pain prick: Normal Response to temperature: Normal Response to vibration: Normal Coordination: Normal: Finger to Nose, Heel to [place] Motor Strength: 3/5: Left Arm, Right Arm, Left Leg, Right Leg Gait: Deferred Imaging - Results Cat Scan: Image Reviewed Problem List - Problems (1) TIA (transient ischemic attack) Assessment/Plan: [id number] man with extensive psych history came in with a slurred speech and difficulty with balance NIH stroke scale is 0 in the emergency room now Questionable TIA Risk factors include being a man over 50 extensive cardiac history No TPA was given Patient's family wants the patient to be transferred to [facility] patient received full aspirin Code(s): G45.9 - TRANSIENT CEREBRAL ISCHEMIC ATTACK, UNSPECIFIED
[2019-02-16] MEDS ORDERED: ACETAMINOPHEN 325 MG TABLET (FP) PO PRN (10:35)
[2019-02-16] MEDS ORDERED: ALBUTEROL SO4 0.083% IH SOL 2.5 MG/3 ML VIAL.NEB. NEB PRN (10:43)
--- NOTE | 2019-02-16 11:48 | HP ---
CHIEF COMPLAINT: slurred speech. PCP:Mason Marti HISTORY OF PRESENT ILLNESS: 63 yo M with pmhx of CAD(s/p CABG and stents), PAD,HTN, HLD,colitis, and bipolar disorder presents with few hour history of slurred speech and gait instability. His is present with him and assisting in the history. She states he was in his normal state of health the evening prior. He awoke at around 1am and woke the dog and proceeded to sleep in a recliner. His awoke at 4am when his usual wake up time and found him in the recliner and tried to arouse him. He was difficult to arouse and made a strange comment that " I shouldn't go to my doctor appointment today" , which she didnt pay much attention to but he did not have a appoitment. A couple hours later she found him still in the chair and woke him at that time he had some slurred speech and possible facial asymmetry as per . He was still confused making strange comments and then she proceeded to tell him to go to the room if he was still sleeping. When he tried to stand up he was bracing himself against the wall to help him walk to room. This prompted to call over a neighbor who is EMS for a second opinion. Neighbor felt that same that his speech was off. The quickly called EMS and patient was transported to ER. At this time he denies CP ,GOODRICH, SOB, palpitations, abdominal pain, nausea or vomiting. ER course was notable for: (1)CT head was negative for acute ICH or ischemia. (2)ASA 325mg administered. (3)Seen by Neurology. Recent Travel:Denies PAST MEDICAL HISTORY:CAD,PAD, HTN, HLD,colitis, and bipolar disorder PAST SURGICAL HISTORY: CABG, Cardiac stents, hernia repair and implantable hearing device. Social History: Smoking: former smoker quit 25yrs ago, 60 pack year history prior to quitting. Alcohol:denies Drugs: smokes marijuana regularly. Family History:Father passed( Leukemia), Mother and two brothers of [place]'s Allergies ciprofloxacin [From Cipro] Allergy (Verified 01/28/18 14:33) Penicillins Allergy (Verified 01/28/18 14:33) HOME MEDICATIONS: Home Medications Medication Instructions Recorded Ascorbic Acid [Vitamin C] 1,000 mg PO DAILY 01/28/18 Aspirin [Aspirin EC] 81 mg PO DAILY 01/28/18 Cholecalciferol (Vitamin D3) 1,000 unit PO DAILY 01/28/18 [Vitamin D3] Cilostazol [Pletal -] 100 mg PO DAILY 01/28/18 Cyanocobalamin (Vitamin B-12) 1,000 mcg PO DAILY 01/28/18 [Vitamin B12] Fenofibrate Nanocrystallized 145 mg PO DAILY 01/28/18 [Tricor] Glucosa Guidry 2Kcl/Chondroitin Guidry 2 each PO DAILY 01/28/18 [Glucosamine & Chondroitin Cap] Isosorbide Mononitrate [Isosorbide 120 mg PO DAILY 01/28/18 Mononitrate ER] Melatonin 10 mg PO DAILY 01/28/18 Mesalamine [Lialda] 1.2 gm PO QID 01/28/18 Metoprolol Succinate [Toprol Xl] 100 mg PO BID 01/28/18 Multivit-Min/FA/Lycopen/Lutein 1 each PO DAILY 01/28/18 [Centrum Silver Tablet] Paroxetine HCl [Paxil] 10 mg PO DAILY 01/28/18 Pilocarpine HCl 7.5 mg PO QID 01/28/18 Quetiapine Fumarate [Seroquel -] 500 mg PO DAILY 01/28/18 Ranolazine [Ranexa] 500 mg PO BID 01/28/18 Rosuvastatin Calcium [Crestor] 40 mg PO DAILY 01/28/18 Albuterol 0.083% Nebulizer Kourtney 1 amp NEB Q4H PRN #1 amp 02/02/18 [Ventolin 0.083% Nebulizer Soln -] Budesonide/Formeterol Fumarate 2 inh PO BID #1 cannister 02/02/18 [SYMBICORT 160/4.5mcg -] Montelukast Na [Singulair -] 10 mg PO HS #30 tablet 02/02/18 metFORMIN HCL [Glucophage -] 500 mg PO TID 02/02/18 Colesevelam HCl 625 mg PO ASDIR 02/16/19 REVIEW OF SYSTEMS CONSTITUTIONAL: Absent: fever, chills, diaphoresis, generalized weakness, malaise, loss of appetite, weight change HEENT: Absent: rhinorrhea, nasal congestion, throat pain, throat swelling, difficulty swallowing, mouth swelling, ear pain, eye pain, visual changes CARDIOVASCULAR: Absent: chest pain, syncope, palpitations, irregular heart rate, lightheadedness , peripheral edema RESPIRATORY: Absent: cough, shortness of breath, dyspnea with exertion, orthopnea, wheezing, stridor, hemoptysis GASTROINTESTINAL: Absent: abdominal pain, abdominal distension, nausea, vomiting, diarrhea, constipation, melena, hematochezia GENITOURINARY: Absent: dysuria, frequency, urgency, hesitancy, hematuria, flank pain, genital pain MUSCULOSKELETAL: Absent: myalgia, arthralgia, joint swelling, back pain, neck pain SKIN: Absent: rash, itching, pallor HEMATOLOGIC/IMMUNOLOGIC: Absent: easy bleeding, easy bruising, lymphadenopathy, frequent infections ENDOCRINE: Absent: unexplained weight gain, unexplained weight loss, heat intolerance, cold intolerance NEUROLOGIC: unsteady gait, slurred speech. Absent: headache, focal weakness or paresthesias, dizziness, , seizure, mental status changes, bladder or bowel incontinence PSYCHIATRIC: Absent: anxiety, depression, suicidal or homicidal ideation, hallucinations. PHYSICAL EXAMINATION Vital Signs - 24 hr 02/16/19 02/16/19 07:30 09:15 Temperature 98.3 F Pulse Rate 78 Pulse Rate [ 72 Apical] Respiratory 17 13 Rate Blood Pressure 107/70 Blood Pressure 95/62 [Right Arm] O2 Sat by Pulse 97 96 Oximetry (%) GENERAL: AAOx3, NAD HEAD:NCAT EYES: JENNIFER, EOMI, sclera anicteric, conjunctiva clear. No lid lag. EARS, NOSE, THROAT: Dry mucous membranes. NECK: supple without lymphadenopathy, JVD, or masses. LUNGS: CTAB. No wheezes, and no crackles. No accessory muscle use. HEART: RRR, normal S1 and S2 without murmur, rub or gallop. ABDOMEN: Soft,obese, nontender, not distended, normoactive bowel sounds, no guarding, no rebound, no masses. No hepatomegaly or splenomegaly. MUSCULOSKELETAL: Normal range of motion at all joints. No bony deformities or tenderness. No CVA tenderness. UPPER EXTREMITIES: 2+ pulses, warm, well-perfused. No cyanosis. No clubbing. No peripheral edema. LOWER EXTREMITIES: 2+ pulses, warm, well-perfused. No calf tenderness. No peripheral edema. NEUROLOGICAL: Cranial nerves II-XII intact. muffled speech. strength 5/5 upper and lower ext. sensation intact. PSYCHIATRIC: Cooperative. Good eye contact. Appropriate mood and affect. SKIN: Warm, dry, normal turgor, no rashes or lesions noted, normal capillary refill. Laboratory Results - last 24 hr 02/16/19 02/16/19 02/16/19 07:32 07:32 07:32 WBC 6.0 RBC 4.33 Hgb 13.1 Hct 39.2 MCV 90.5 MCH 30.2 MCHC 33.4 RDW 14.9 Plt Count 224 D MPV 8.1 Absolute Neuts (auto) 4.0 Neutrophils % 67.1 Lymphocytes % 20.9 Monocytes % 10.0 Eosinophils % 0.9 D Basophils % 1.1 D Nucleated RBC % 0 PT with INR 13.40 H INR 1.13 H Sodium 139 Potassium 4.6 Chloride 111 H Carbon Dioxide 24 Anion Gap 4 L BUN 22 H Creatinine 1.3 Creat Clearance w eGFR 55.40 POC Glucometer Random Glucose 114 H Calcium 8.8 Total Bilirubin 0.3 AST 21 ALT 32 Alkaline Phosphatase 35 L Creatine Kinase 62 Troponin I < 0.02 Total Protein 7.1 Albumin 3.6 Triglycerides 123 Cholesterol 90 Total LDL Cholesterol 49 HDL Cholesterol 28 L Blood Type Antibody Screen 02/16/19 02/16/19 02/16/19 07:32 08:01 10:37 WBC RBC Hgb Hct MCV MCH MCHC RDW Plt Count MPV Absolute Neuts (auto) Neutrophils % Lymphocytes % Monocytes % Eosinophils % Basophils % Nucleated RBC % PT with INR INR Sodium Potassium Chloride Carbon Dioxide Anion Gap BUN Creatinine Creat Clearance w eGFR POC Glucometer 112 Random Glucose Calcium Total Bilirubin AST ALT Alkaline Phosphatase Creatine Kinase Troponin I Total Protein Albumin Triglycerides Cholesterol Total LDL Cholesterol HDL Cholesterol Blood Type O POSITIVE O POSITIVE Antibody Screen Negative ASSESSMENT/PLAN: 63 yo M with pmhx of CAD(s/p CABG and stents), PAD,HTN, HLD,colitis, and bipolar disorder presents with few hour history of slurred speech and gait instability admitted to telemetry for possible TIA/CVA. Problem List - Problem (1) TIA (transient ischemic attack) Assessment/Plan: Admit to telemetry. * CT head was negative initially * Given 325 ASA in ER will continue daily. * Crestor 40mg PO daily * Neurology consult appreciated. * Echo, carotid doppler and MRI of brain pending. * speech and swallow eval * fall precautions. (2) CAD (coronary artery disease) Assessment/Plan: * Isosorbide Mononitrate (Imdur -) 120 mg PO DAILY * Metoprolol Succinate (Toprol Xl -) 100 mg PO BID * Ranolazine (Ranexa -) 500 mg PO BID (3) HTN (hypertension) Assessment/Plan: BP was low on presentation will continue to monitor. * Isosorbide Mononitrate (Imdur -) 120 mg PO DAILY * Metoprolol Succinate (Toprol Xl -) 100 mg PO BID (4) PAD (peripheral artery disease) Assessment/Plan: * Cilostazol (Pletal -) 100 mg PO DAILY HAYES (5) Bipolar 1 disorder Assessment/Plan: * Paroxetine HCl (Paxil -) 10 mg PO DAILY * Quetiapine Fumarate (Seroquel -) 400 mg PO DAILY (6) HLD (hyperlipidemia) Assessment/Plan: Lipid panel done shows appropriately low LDL as well as low HDL * Fenofibric Acid (Trilipix -) 135 mg PO DAILY * Rosuvastatin Calcium (Crestor -) 40 mg PO HS (7) Colitis Assessment/Plan: Well controlled without a flare in several years. * Mesalamine (Asacol Hd -) 1,600 mg PO TID (8) DVT prophylaxis Assessment/Plan: Heparin SQ 5000 units Q8H Visit type - Emergency Visit Emergency Visit: Yes ED Registration Date: 02/16/19 Care time: The patient presented to the Emergency Department on the above date and was hospitalized for further evaluation of their emergent condition. - New Patient This patient is new to me today: Yes Date on this admission: 02/16/19 - Critical Care Critical Care patient: No NIH Stroke Scale - Last Known Well Date/Time & Onset Date Last Known Well: 02/15/19 Time Last Known Well: 23:00 - Initial Evaluation Level of consciousness: Alert Ask patient the month and their age: Answers both correctly Ask patient to open & close eyes; make fist and let go: Obeys both correctly Best gaze (horizontal eye movement): Normal Visual field testing: No visual field loss Facial paresis (Show teeth/raise eyebrows/close eyes tight): Normal symmetrical movement Motor Function: Left Arm: Normal Motor Function: Right Arm: Normal (extends arm 90 (or 45) degrees for 10 seconds without drift Motor Function: Left Leg: Normal (extends leg 30 degrees for 5 seconds without drift) Motor Function: Right Leg: Normal (extends leg 30 degrees for 5 seconds without drift) Limb Ataxia: No ataxia Sensory(Use pinprick test arms,legs,trunk,face/side to side): Normal Best language (Describe picture, name items, read sentences): No Aphasia Dysarthria (read several words): Normal articulation Extinction and Inattention: No abnormality - Total Score NIH Stroke Scale Score: 0
--- NOTE | 2019-02-16 11:58 | EKG ---
Test Reason : Blood Pressure : / mmHG Vent. Rate : 075 BPM Atrial Rate : 075 BPM P-R Int : 208 ms QRS Dur : 158 ms QT Int : 426 ms P-R-T Axes : 039 072 017 degrees QTc Int : 475 ms NORMAL SINUS RHYTHM RIGHT BUNDLE BRANCH BLOCK ABNORMAL ECG WHEN COMPARED WITH ECG OF 28-JAN-2018 23:46, NO SIGNIFICANT CHANGE WAS FOUND Confirmed by MARYSOL TOMLIN MD ([id number]) on 02/16/2019 11:57:47 AM Referred By: CHALO Confirmed By:MARYSOL TOMLIN MD
--- NOTE | 2019-02-16 12:23 | EKG ---
Test Reason : Blood Pressure : / mmHG Vent. Rate : 068 BPM Atrial Rate : 068 BPM P-R Int : 210 ms QRS Dur : 162 ms QT Int : 442 ms P-R-T Axes : 037 066 024 degrees QTc Int : 469 ms SINUS RHYTHM WITH 1ST DEGREE A-V BLOCK RIGHT BUNDLE BRANCH BLOCK CANNOT RULE OUT INFERIOR INFARCT , AGE UNDETERMINED ABNORMAL ECG WHEN COMPARED WITH ECG OF 16-FEB-2019 07:51, NO SIGNIFICANT CHANGE WAS FOUND Confirmed by MARYSOL TOMLIN MD ([id number]) on 02/16/2019 12:23:14 PM Referred By: ARISTEO SIMEON Confirmed By:MARYSOL TOMLIN MD
--- NOTE | 2019-02-16 12:52 | CONSULT ---
Admitting History and Physical - Primary Care Physician PCP: Zeina Cobian - Admission History of Present Illness: 63 right-handed man with extensive cardiac history, coronary artery disease, COPD, hypertension was on aspirin with onset of speech difficulty and dizziness this morning. Per pt's , pt was speaking in sentences but tangential and not responding appropriately and completely. Speech was slurred. There was no drooling and no asymmetry. Pt reports recent decline in overall word finding. Pt retired a couple of years ago from [employer]. History Source: Patient, Family Member, Medical Record Limitations to Obtaining History: Clinical Condition (anomia) - Past Medical History Cardiovascular: Yes: CAD, Hyperlipdemia Gastrointestinal: Yes: Ulcerative Colitis - Smoking History Smoking history: Former smoker Have you smoked in the past 12 months: No If you are a former smoker, when did you quit?: 25 yrs ago - Alcohol/Substance Use Hx Alcohol Use: No History - Admission Reason For Visit: SLURRED SPEECH - Diagnostics X-ray: Report Reviewed CT Scan: Report Reviewed MRI: Pending - General Mental Status: Alert and Oriented, Awake and Alert, Able to Follow Commands Attention: Intact Head/Neck Control: WFL - Hearing Hearing: Functional, Impaired, Left Ear (h/o Stapes sx/BAHA 4 yrs ago) Speech Evaluation - Communication Primary Language: OCCITAN Oral Expression Ability: Yes: Mild Impairment (slight imprecision. Pt's feels speech production back to baseline. Occasional word retrieval difficulty.) - Speech Characteristics Voice Loudness: Normal Voice Pitch: Yes: Normal Voice Phonatory-based Quality: Yes: Normal Speech Clarity: < 100% Nasal Resonance: Normal Articulation: Yes: Imprecise (slight) - Language/Auditory Comprehension Follows: Yes: 1 Stage Simple Commands - Language/Verbal Expression Aphasia: Yes: Anomia Able to Respond to Simple Queries: Yes: WNL Able to Communicate Wants and Needs: Yes: WNL Functional Communication Status: Yes: WNL - Memory/Perception technician terminal and repeater Memory: Yes: WNL Short Term Memory: Yes: WNL - Swallow Evaluation/Bedside Assessment Current Nutritional Intake: NPO Oral Secretions: Yes: WFL Dentition: Yes: Adequate Facial Symmetry at Rest: Symmetrical Facial Symmetry on Retraction: Symmetrical Facial Movement: Controlled Against Resistance Opening: Normal Against Resistance Closing: Normal Pucker Lips: Normal Smile: Normal Lingual Movement: Normal, Symmetric Lingual Speed of Movement: Normal Lingual Movement Strgth Against Opposition: Reduced (slight?) Lingual Movement Characteristics: Normal Velopharyngeal Movement: Normal Laryngeal Elevation: WFL Laryngeal Movement: Able to Palpate Rate of Intake: WFL Bolus Size: WFL Labial Seal: WFL Chewing: Impaired (slightly labored? Pt reports oral dryness) Oral Prep Time: Increased A-P Transit: WFL Pocketing: None Timing of Swallow: WFL Coughing/Throat Clear: Yes (occasional brief cough) Recommendations - Speech Evaluation, Impression/Plan Impression: Improved speech/language function since admission. Slight articulatory imprecision? ( feels back to normal). Occasional word retrieval deficits. -Pt reports some anomia over last few months. Swallowing grossly intact. Occasional brief cough.Mildly labored mastication. Cognition intact. - Disposition Discharge to: To be Determined - Dysphagia Impressions/Plan Dysphagia Impressions: Minimal Impairment, Risk of Aspiration, Ongoing Evaluation *Silent aspiration: cannot be R/O at bedside Dysphagia Treatment Plan: OOB for meals, OOB for 1 h. after meals Recommendations: Other (monitor for cough, congestion, fever, may need to downgrade if noted. Supervision with meals.) - Recommendations Diet Consistency: Regular Medication Administration: Whole with water Liquids: Thin Liquids
[2019-02-16] MEDS ORDERED: PILOCARPINE HCL 7.5 MG PO SCH (14:00)
[2019-02-16] MEDS: MESALAMINE 800 MG TABLET.DR PO SCH ×2 (15:27→23:43)
--- NOTE | 2019-02-16 15:39 | ECHO ---
Name: DARWIN RIZVI Exam:Adult Echocardiogram Study Date: 02/16/2019 01:25 PM Age: 63 yrs Reason For Study: CVA Height: 72 in Weight: 195 lb BSA: 2.1 m2 MMode/2D Measurements & Calculations IVSd: 1.0 cm Ao root diam: 3.2 cm LVIDd: 4.9 cm LA dimension: 3.7 cm LVIDs: 3.2 cm LVPWd: 0.86 cm EDV(Teich): 114.0 ml LVOT diam: 2.1 cm ESV(Teich): 42.5 ml Doppler Measurements & Calculations MV E max farhad: 66.1 cm/sec Ao V2 max: 155.3 cm/sec MV A max farhad: 76.5 cm/sec Ao max P.6 mmHg MV E/A: 0.86 Ao V2 mean: 100.4 cm/sec Ao mean P.7 mmHg Ao V2 VTI: 34.6 cm GIANNA(I,D): 2.2 cm2 GIANNA(V,D): 2.5 cm2 LV V1 max P.6 mmHg SV(LVOT): 76.1 ml LV V1 mean P.5 mmHg LV V1 max: 107.1 cm/sec LV V1 mean: 73.7 cm/sec LV V1 VTI: 21.3 cm Med Peak E' Farhad: 6.1 cm/sec Med E/e': 10.8 Lat Peak E' Farhad: 7.6 cm/sec Lat E/e': 8.7 Procedure A two-dimensional transthoracic echocardiogram with color flow and Doppler was performed. Left Ventricle The left ventricular size, thickness and function are normal. The left ventricular ejection fraction is normal. Right Ventricle The right ventricle is normal in size and function. Atria Normal left and right atrial size and function. Mitral Valve There is mild mitral valve thickening. There is no mitral valve stenosis. There is no mitral regurgit ation noted. Tricuspid Valve There is mild tricuspid valve thickening. There is no tricuspid stenosis. Right ventricular systolic pressure is normal. There is trace tricuspid regurgitation. Aortic Valve The aortic valve is trileaflet. There is mild aortic sclerosis.;. There is mild aortic valve thickeni ng. No hemodynamically significant valvular aortic stenosis. No aortic regurgitation is present. Pulmonic Valve The pulmonic valve is not well visualized. Great Vessels The aortic root is normal size. There is aortic root sclerosis/calcification. Pericardium/Pleura There is no pericardial effusion. Interpretation Summary The left ventricular size, thickness and function are normal The left ventricular ejection fraction is normal. The aortic valve is trileaflet. There is mild aortic valve thickening. There is mild aortic sclerosis.; There is aortic root sclerosis/calcification. No aortic regurgitation is present. Right ventricular systolic pressure is normal. There is trace tricuspid regurgitation. MD Flaco Jaime 02/16/2019 03:38 PM
--- NOTE | 2019-02-16 17:09 | PN ---
Teaching Attending Note Name of Resident: Morgan Martin ATTENDING PHYSICIAN STATEMENT I saw and evaluated the patient. I reviewed the resident's note and discussed the case with the resident. I agree with the resident's findings and plan as documented. SUBJECTIVE:63yo M with pMH CAD s/p CABG and stents, dyslipidemia, HTN, UC, PVD presented to the ER with dysarthria and ataxic gait. last well known time was 2300 last night. NIHSS 3 on admission. out of the window and improving NIHSS is not a candidate for TPA. seen by neuro already. upon my assessment the does not want him here and requests he be transferred to [place] where all his physicians are. found accepting doctor Dr Ronnie Giang as accepting physician. OBJECTIVE: Last Vital Signs Temp Pulse Resp BP Pulse Ox 98.3 F 72 13 95/62 96 02/16/19 07:30 02/16/19 09:15 02/16/19 09:15 02/16/19 09:15 02/16/19 09:15 refused physical exam ASSESSMENT AND PLAN: 63yo M with pMH CAD s/p CABG and stents, dyslipidemia, HTN, UC, PVD presented to the ER with dysarthria and ataxic gait and code kebede was initiated. out ot TPA window for treatment with symptoms now reported to be resolving 1. TIA R/O CVA-NIHSS 3 on presentation. has been accepted to [place] for further management and testing to be performed. will continue on cardiac monitoring and further testing until his transfer is complete. see resident note for full plan
[2019-02-16] MEDS ORDERED: HEPARIN NA (PORCINE) 5,000 UNITS/ML 1ML VIAL SQ SCH (18:00)
[2019-02-16] MEDS ORDERED: HEPARIN NA (PORCINE) 5,000 UNITS/ML 1ML VIAL ONE (19:05)
[2019-02-16] MEDS ORDERED: MONTELUKAST NA 10 MG TABLET PO SCH (22:00)
[2019-02-16] MEDS ORDERED: BUDESONIDE/FORMETEROL FUMARATE 160/4.5 mcg INHALER IH SCH (22:00)
[2019-02-16] MEDS ORDERED: ROSUVASTATIN CA 40 MG TABLET PO SCH (22:00)
[2019-02-16] MEDS: RANOLAZINE E.R. 500 MG TABLET (FP) PO SCH (23:43)
[2019-02-16] MEDS: ROSUVASTATIN CA 20 MG TABLET (FP) PO SCH (23:43)
[2019-02-17] MEDS ORDERED: HEPARIN NA (PORCINE) 5,000 UNITS/ML 1ML VIAL ONE ×2 (06:05→22:07)
[2019-02-17] MEDS: HEPARIN NA (PORCINE) 5,000 UNITS/ML 1ML VIAL SQ SCH ×3 (06:08→22:24)
[2019-02-17 06:15] LABS: BASO % 1.3 % (0-2.0); EOS % 3.6 % (0-4.5); HEMATOCRIT 40.5 % (35.4-49); HEMOGLOBIN 13.5 GM/dL (11.7-16.9); LYMPH % 31.1 % (8-40); MCH 29.9 pg (25.7-33.7); MCHC 33.3 g/dl (32.0-35.9); MEAN PLT VOLUME 8.3 fl (7.5-11.1); MONO % 11.1 % (3.8-10.2); NEUT % 52.9 % (42.8-82.8); PLATELET COUNT 241 K/MM3 (134-434)
[2019-02-17 06:39] LABS: ALBUMIN 3.8 g/dl (3.4-5.0); ALK PHOS 47 U/L (45-117); ANION GAP 8 MMOL/L (8-16); BILIRUBIN,TOTAL 0.2 mg/dL (0.2-1); BLOOD UREA NITROGEN 21 mg/dL (7-18); CHLORIDE 110 mmol/L (98-107); CHOLESTEROL 100 mg/dL (50-200); CO2 25 mmol/L (21-32); CREATININE 1.2 mg/dL (0.55-1.3); GLUCOSE,RANDOM 114 mg/dL (74-106); HDL CHOLESTEROL 31 mg/dL (40-60); MAGNESIUM 1.8 mg/dL (1.8-2.4); PHOSPHOROUS 3.8 mg/dL (2.5-4.9); POTASSIUM 4.2 mmol/L (3.5-5.1); SGOT/AST 23 U/L (15-37); SGPT/ALT 32 U/L (13-61); SODIUM 142 mmol/L (136-145); TOT PROT 7.4 g/dl (6.4-8.2); TRIGLYCERIDES 142 mg/dL (0-150)
[2019-02-17] MEDS: PARoxetine HCL 10 MG TABLET (FP) PO SCH (10:00)
[2019-02-17] MEDS ORDERED: ISOSORBIDE MONONITRATE 60 MG TAB.SR.24H (FP) PO SCH (10:00)
[2019-02-17] MEDS ORDERED: MELATONIN 5 MG TABLETS PO SCH (10:00)
[2019-02-17] MEDS: MULTIVITAMINS THER W-MINERALS COMBO TABLET (FP) PO SCH (10:00)
[2019-02-17] MEDS ORDERED: QUEtiapine FUMARATE 400 MG TABLET PO SCH (10:00)
[2019-02-17] MEDS: CYANOCOBALAMIN 1,000 MCG TABLET (FP) PO SCH (10:00)
[2019-02-17] MEDS: MESALAMINE 800 MG TABLET.DR PO SCH ×3 (10:00→22:24)
[2019-02-17] MEDS: CILOSTAZOL 100 MG TABLET PO SCH ×2 (10:00→13:00)
[2019-02-17] MEDS: ASCORBIC ACID 500 MG TABLET (FP) PO SCH (10:00)
[2019-02-17] MEDS: ASPIRIN 325 MG ENTERIC COATED TABLET (FP) PO SCH (10:00)
[2019-02-17] MEDS: SODIUM CHLORIDE 1,000 ML IV SCH (10:14)
--- NOTE | 2019-02-17 12:30 | PN ---
Progress Note (short form) - Note Progress Note: states speech is improving. does not have difficulty finding the right words and states he ambulated earlier today without difficulty. denies CP, SOB, fever , chills, N/V/C/D Current Medications Generic Name Dose Route Start Last Admin Trade Name Freq PRN Reason Stop Dose Admin Acetaminophen 650 mg 02/16/19 10:35 Tylenol - PO Q6H PRN PAIN OR FEVER Ascorbic Acid 1,000 mg 02/17/19 10:00 02/17/19 10:00 Vitamin C - PO 1,000 mg DAILY HAYES Administration Aspirin 325 mg 02/17/19 10:00 02/17/19 10:00 Ecotrin - PO 325 mg DAILY HAYES Administration Cilostazol 100 mg 02/17/19 10:00 Pletal - PO DAILY HAYES Cyanocobalamin 1,000 mcg 02/17/19 10:00 02/17/19 10:00 Vitamin B12 - PO 1,000 mcg DAILY HAYES Administration Fenofibric Acid 135 mg 02/17/19 10:00 Trilipix - PO DAILY HAYES Heparin Sodium (Porcine) 5,000 unit 02/17/19 06:00 02/17/19 06:08 Heparin - SQ 5,000 unit TID HAYES Administration Mesalamine 1,600 mg 02/16/19 14:00 02/17/19 10:00 Asacol Hd - PO 1,600 mg TID HAYES Administration Metoprolol Succinate 100 mg 02/16/19 22:00 02/17/19 10:00 Toprol Xl - PO 100 mg BID HAYES Administration Multivitamins/Minerals 1 each 02/17/19 10:00 02/17/19 10:00 Theragran-M PO 1 each DAILY HAYES Administration Non-Formulary Medication 7.5 mg 02/16/19 14:00 Pilocarpine Hcl [Pilocarpine Hcl] PO QID HAYES Paroxetine HCl 10 mg 02/17/19 10:00 02/17/19 10:00 Paxil - PO 10 mg DAILY HAEYS Administration Quetiapine Fumarate 400 mg 02/17/19 10:00 02/17/19 10:00 Seroquel - PO 400 mg DAILY HAYES Administration Ranolazine 500 mg 02/16/19 22:00 02/16/19 23:43 Ranexa - PO 500 mg BID HAYES Administration Rosuvastatin Calcium 40 mg 02/16/19 23:45 02/16/19 23:43 Crestor - PO 40 mg HS HAYES Administration Last Vital Signs Temp Pulse Resp BP Pulse Ox 98.5 F 69 18 112/69 99 02/17/19 10:00 02/17/19 10:00 02/17/19 10:00 02/17/19 10:00 02/17/19 10:00 General NAD CV S1 S2 RRR no murmur/rub/gallop Lungs CTA B/L no wheezing/rale/rhonchi Neuro CN II-XII grossly intact, speech is fluid and responds appropriately. gait is not tested CBCD WBC 6.0 K/mm3 (4.0-10.0) 02/17/19 05:20 RBC 4.50 M/mm3 (4.00-5.60) 02/17/19 05:20 Hgb 13.5 GM/dL (11.7-16.9) 02/17/19 05:20 Hct 40.5 % (35.4-49) 02/17/19 05:20 MCV 90.0 fl (80-96) 02/17/19 05:20 MCHC 33.3 g/dl (32.0-35.9) 02/17/19 05:20 RDW 15.0 % (11.9-15.9) 02/17/19 05:20 Plt Count 241 K/MM3 (134-434) 02/17/19 05:20 MPV 8.3 fl (7.5-11.1) 02/17/19 05:20 CMP Sodium 142 mmol/L (136-145) 02/17/19 05:20 Potassium 4.2 mmol/L (3.5-5.1) 02/17/19 05:20 Chloride 110 mmol/L (98-107) H 02/17/19 05:20 Carbon Dioxide 25 mmol/L (21-32) 02/17/19 05:20 Anion Gap 8 MMOL/L (8-16) 02/17/19 05:20 BUN 21 mg/dL (7-18) H 02/17/19 05:20 Creatinine 1.2 mg/dL (0.55-1.3) 02/17/19 05:20 Creat Clearance w eGFR 60.76 (>60) 02/17/19 05:20 Calcium 9.0 mg/dL (8.5-10.1) 02/17/19 05:20 Total Bilirubin 0.2 mg/dL (0.2-1) 02/17/19 05:20 AST 23 U/L (15-37) 02/17/19 05:20 ALT 32 U/L (13-61) 02/17/19 05:20 Alkaline Phosphatase 47 U/L (45-117) 02/17/19 05:20 Total Protein 7.4 g/dl (6.4-8.2) 02/17/19 05:20 Albumin 3.8 g/dl (3.4-5.0) 02/17/19 05:20 A&P 63yo M with pMH CAD s/p CABG and stents, dyslipidemia, HTN, UC, PVD presented to the ER with dysarthria and ataxic gait and code kebede was initiated. out ot TPA window for treatment with symptoms now reported to be resolving 1. TIA R/O CVA-symptoms seem to have resolved. Head CT, carotid doppler and echo normal for acute pathology. NSR noted on the monitor. On schedule for MRI later today. seen by neuro and speech and swallow therapist. will see PT later today. on full dose asa, statin. will d/w neuro about switching pletal to plavix. 2. HTN- low BP here. will hold imdur. cont metoprolol 3. CAD s/p CABG- cont home medications 4. Dyslipidemia- statin 5. UC- on mesalamine 6. DVT ppx- hep sq 7. accepted for transfer at [facility], awaiting bed for transfer. Visit type - Emergency Visit Emergency Visit: Yes ED Registration Date: 02/16/19 Care time: The patient presented to the Emergency Department on the above date and was hospitalized for further evaluation of their emergent condition. - New Patient This patient is new to me today: No - Critical Care Critical Care patient: No - Discharge Referral Referred to [facility] No
[2019-02-17] MEDS: RANOLAZINE E.R. 500 MG TABLET (FP) PO SCH ×2 (13:00→22:24)
[2019-02-17] MEDS: FENOFIBRIC ACID 135 MG CAP PO SCH (13:00)
[2019-02-17] MEDS: ROSUVASTATIN CA 20 MG TABLET (FP) PO SCH (22:24)
[2019-02-18 02:08] VITALS: BMI 29.2
[2019-02-18] MEDS ORDERED: PT OWN MED DRAWER 7, Y5N ONE ×3 (05:35→10:08)
[2019-02-18] MEDS: HEPARIN NA (PORCINE) 5,000 UNITS/ML 1ML VIAL SQ SCH (06:06)
[2019-02-18 08:00] VITALS: TEMP 97.4
[2019-02-18] MEDS ORDERED: MESALAMINE 800 MG TABLET.DR PO SCH (08:00)
--- NOTE | 2019-02-18 08:00 | PN ---
Physical Exam: SUBJECTIVE: Patient seen and examined OBJECTIVE: Vital Signs Period Temp Pulse Resp BP Sys/Andino Pulse Ox Last 24 Hr 97.4 F-99.4 F 59-73 16-20 106-136/66-92 95-99 GENERAL: The patient is awake, alert, and fully oriented, in no acute distress. HEAD: Normal with no signs of trauma. EYES: PERRL, extraocular movements intact, sclera anicteric, conjunctiva clear. No ptosis. ENT: Ears normal, nares patent, oropharynx clear without exudates, moist mucous membranes. NECK: Trachea midline, full range of motion, supple. LUNGS: Breath sounds equal, clear to auscultation bilaterally, no wheezes, no crackles, no accessory muscle use. HEART: Regular rate and rhythm, S1, S2 without murmur, rub or gallop. ABDOMEN: Soft, nontender, nondistended, normoactive bowel sounds, no guarding, no rebound, no hepatosplenomegaly, no masses. EXTREMITIES: 2+ pulses, warm, well-perfused, no edema. NEUROLOGICAL: Cranial nerves II through XII grossly intact. Normal speech, gait not observed. PSYCH: Normal mood, normal affect. SKIN: Warm, dry, normal turgor, no rashes or lesions noted Laboratory Results - last 24 hr 02/17/19 02/17/19 05:20 05:20 ESR 11 Hemoglobin A1c % 5.7 Active Medications Generic Name Dose Route Start Last Admin Trade Name Freq PRN Reason Stop Dose Admin Acetaminophen 650 mg 02/16/19 10:35 02/18/19 07:57 Tylenol - PO 650 mg Q6H PRN Administration PAIN OR FEVER Ascorbic Acid 1,000 mg 02/17/19 10:00 02/17/19 10:00 Vitamin C - PO 1,000 mg DAILY HAYES Administration Aspirin 325 mg 02/17/19 10:00 02/17/19 10:00 Ecotrin - PO 325 mg DAILY HAYES Administration Cilostazol 100 mg 02/17/19 10:00 02/17/19 13:00 Pletal - PO 100 mg DAILY HAYES Administration Cyanocobalamin 1,000 mcg 02/17/19 10:00 02/17/19 10:00 Vitamin B12 - PO 1,000 mcg DAILY HAYES Administration Fenofibric Acid 135 mg 02/17/19 10:00 02/17/19 13:00 Trilipix - PO 135 mg DAILY HAYES Administration Heparin Sodium (Porcine) 5,000 unit 02/17/19 06:00 02/18/19 06:06 Heparin - SQ 5,000 unit TID HAYES Administration Mesalamine 1,600 mg 02/18/19 08:00 Asacol Hd - PO TIDCM HAYES Metoprolol Succinate 100 mg 02/16/19 22:00 02/17/19 22:24 Toprol Xl - PO 100 mg BID HAYES Administration Multivitamins/Minerals 1 each 02/17/19 10:00 02/17/19 10:00 Theragran-M PO 1 each DAILY HAYES Administration Non-Formulary Medication 7.5 mg 02/16/19 14:00 Pilocarpine Hcl [Pilocarpine Hcl] PO QID HAYES Paroxetine HCl 10 mg 02/17/19 10:00 02/17/19 10:00 Paxil - PO 10 mg DAILY HAYES Administration Quetiapine Fumarate 400 mg 02/18/19 10:00 Seroquel - PO DAILY HAYES Ranolazine 500 mg 02/16/19 22:00 02/17/19 22:24 Ranexa - PO 500 mg BID HAYES Administration Rosuvastatin Calcium 40 mg 02/16/19 23:45 02/17/19 22:24 Crestor - PO 40 mg HS HAYES Administration ASSESSMENT/PLAN:
[2019-02-18] MEDS ORDERED: QUEtiapine FUMARATE 200 MG TABLET PO SCH (10:00)
[2019-02-18] MEDS: MULTIVITAMINS THER W-MINERALS COMBO TABLET (FP) PO SCH (10:29)
[2019-02-18] MEDS: ASCORBIC ACID 500 MG TABLET (FP) PO SCH (10:29)
[2019-02-18] MEDS: RANOLAZINE E.R. 500 MG TABLET (FP) PO SCH (10:29)
[2019-02-18] MEDS: ASPIRIN 325 MG ENTERIC COATED TABLET (FP) PO SCH (10:29)
[2019-02-18] MEDS: PARoxetine HCL 10 MG TABLET (FP) PO SCH (10:30)
[2019-02-18] MEDS: FENOFIBRIC ACID 135 MG CAP PO SCH (10:30)
[2019-02-18] MEDS: CYANOCOBALAMIN 1,000 MCG TABLET (FP) PO SCH (10:30)
[2019-02-18] MEDS: CILOSTAZOL 100 MG TABLET PO SCH (10:31)
[2019-02-18 10:39] VITALS: BP 116/65; PULSE 65
--- NOTE | 2019-02-18 10:54 | DS ---
Physical Exam: SUBJECTIVE: Patient seen and examined at bedside. Patient back to baseline for speech and balance. Walked with PT without issue. OBJECTIVE: Vital Signs Period Temp Pulse Resp BP Sys/Andino Pulse Ox Last 24 Hr 97.4 F-99.4 F 59-73 16-20 106-136/65-77 96-99 PHYSICAL EXAM GENERAL: The patient is awake, alert, and fully oriented, in no acute distress. HEAD: Normal with no signs of trauma. NECK: Trachea midline, full range of motion, supple. LUNGS: Breath sounds equal, clear to auscultation bilaterally, no wheezes, no crackles, no accessory muscle use. HEART: Regular rate and rhythm, S1, S2 without murmur, rub or gallop. ABDOMEN: Soft, nontender, nondistended, normoactive bowel sounds, no guarding, no rebound, no hepatosplenomegaly, no masses. EXTREMITIES: 2+ pulses, warm, well-perfused, no edema. NEUROLOGICAL: Cranial nerves II through X grossly intact. Normal speech, normal gait. Strength 5/5 in all 4 limbs. SKIN: Warm, dry, normal turgor, no rashes or lesions noted. LABS HOSPITAL COURSE: Date of Admission:02/16/19 The patient is a 63 yo M with pmhx of CAD (s/p CABG and stents), PAD,HTN, HLD, ulcerative colitis, and bipolar disorder presented to the ED c/o a several hour history of slurred speech and gait instability. On presentation to the ER, the patient was found to be slurring his speech. CT of the head in the ED was negative for bleed or acute process. Neurology was consulted from the ER. Since the patient's symptoms began to improve during evaluation, the decision was made to not give TPa. The patient was admitted for further workup and management. Shortly after admission, the patient and his expressed their wishes to be transferred to [place]. The transfer center was contacted the the patient was accepted for transfer. When a bed opened up, the patient declined transfer as the majority of the workup and treatment had already been conducted at this time. Brain MRI showed no acute infarct or other intracranial process. Carotid doppler showed no significant stenosis. Echo showed thickening of the aortic valve without wall motion abnormalities or hypertrophy. The patient was treated with ASA 325 daily as well as Crestor. His home medications were verified and continued. The patient continued to improve daily and rapidly returned to baseline. Physical therapy saw the patient and approved regular physical activities without restrictions. The patient was discharged home with instructions to follow up with a neurologist and his PCP. The patient's home Cilostazol (Pletal) was switched to Plavix 75mg daily for more evidence based secondary prevention of stroke. Medications were sent tot he patient's pharmacy. The patient was advised to return to the ED if his symptoms returned. Date of Discharge: 02/18/19 Minutes to complete discharge: 60 Discharge Summary Reason For Visit: SLURRED SPEECH Current Active Problems Bipolar 1 disorder (Acute) Colitis (Acute) DVT prophylaxis (Acute) HLD (hyperlipidemia) (Acute) HTN (hypertension) (Acute) Slurred speech (Acute) TIA (transient ischemic attack) (Acute) Condition: Improved - Instructions Diet, Activity, Other Instructions: You were admitted for your trouble speaking as well as your difficulty with walking. We believe you have had transient ischemic attack (TIA) which is a type of stroke. An MRI of your brain showed no lasting damage from this. Your speech improved and you were able to walk safely again and you are ready for discharge home. Please be advised, we have changed two of your medications: We have started you on a new medication to help thin your blood and prevent another stroke. This medication is called Plavix (clopidogrel). You should take 75mg of this medication daily. Please STOP taking Cilostazol (Pletal) as this medication interacts with Plavix. We are switching your Cilostazol to Plavix as Plavix has been shown to better decrease the chances of having another stroke for your demographic. Your imdur (isosorbide mononitrate) was also stopped during your hospital stay due to low blood pressures. You should continue to hold this medication. Follow up with your physician/internist if this should be re-started at a lower dose Please continue to take the remainder of your home medications as prescribed. You should follow up with your primary care doctor within 1 week of discharge home. You should follow up with a neurologist within 1 week of discharge home. Information for the neurologist who saw you here in the hospital, Dr. Koo, has been included in your discharge paperwork. Please follow up with him or a neurologist of your choice. Please follow up with the remainder of your doctors at scheduled. Please continue to eat a diet low in saturated fat and cholesterol. This is important to prevent worsening of your peripheral artery disease. If you begin to experience chest pain, shortness of breath, weakness, numbness, trouble seeing or speaking, please call your doctor or return to the emergency department. Referrals: Antonina Koo MD [Staff Physician] - Disposition: HOME - Home Medications Comprehensive Discharge Medication List: Ambulatory Orders Ascorbic Acid [Vitamin C] 1,000 mg PO DAILY 01/28/18 Aspirin [Aspirin EC] 81 mg PO DAILY 01/28/18 Cholecalciferol (Vitamin D3) [Vitamin D3] 1,000 unit PO DAILY 01/28/18 Cyanocobalamin (Vitamin B-12) [Vitamin B12] 1,000 mcg PO DAILY 01/28/18 Fenofibrate Nanocrystallized [Tricor] 145 mg PO DAILY 01/28/18 Glucosa Guidry 2Kcl/Chondroitin Guidry [Glucosamine & Chondroitin Cap] 2 each PO DAILY 01/28/18 Isosorbide Mononitrate [Isosorbide Mononitrate ER] 120 mg PO DAILY 01/28/18 Melatonin 10 mg PO DAILY 01/28/18 Mesalamine [Lialda] 1.2 gm PO QID 01/28/18 Metoprolol Succinate [Toprol Xl] 100 mg PO BID 01/28/18 Multivit-Min/FA/Lycopen/Lutein [Centrum Silver Tablet] 1 each PO DAILY 01/28/18 Paroxetine HCl [Paxil] 10 mg PO DAILY 01/28/18 Pilocarpine HCl 7.5 mg PO QID 01/28/18 Quetiapine Fumarate [Seroquel -] 500 mg PO DAILY 01/28/18 Ranolazine [Ranexa] 500 mg PO BID 01/28/18 Rosuvastatin Calcium [Crestor] 40 mg PO DAILY 01/28/18 Albuterol 0.083% Nebulizer Kourtney [Ventolin 0.083% Nebulizer Soln -] 1 amp NEB Q4H PRN #1 amp 02/02/18 Budesonide/Formeterol Fumarate [SYMBICORT 160/4.5mcg -] 2 inh PO BID #1 cannister 02/02/18 Montelukast Na [Singulair -] 10 mg PO HS #30 tablet 02/02/18 metFORMIN HCL [Glucophage -] 500 mg PO TID 02/02/18 Colesevelam HCl 625 mg PO ASDIR 02/16/19 Clopidogrel Bisulfate [Plavix -] 75 mg PO DAILY #30 tablet 02/18/19 This patient is new to me today: Yes Date on this admission: 02/18/19 Emergency Visit: Yes ED Registration Date: 02/16/19 Care time: The patient presented to the Emergency Department on the above date and was hospitalized for further evaluation of their emergent condition. Critical Care patient: No - Discharge Referral Referred to [facility] No
--- NOTE | 2019-02-18 11:24 | PN ---
Teaching Attending Note Name of Resident: Atul Rivera ATTENDING PHYSICIAN STATEMENT I saw and evaluated the patient. I reviewed the resident's note and discussed the case with the resident. I agree with the resident's findings and plan as documented. SUBJECTIVE:asymptomatic. states speech has returned to baseline. denies CP, SOB , fever, chills, N/V/C/D OBJECTIVE: Last Vital Signs Temp Pulse Resp BP Pulse Ox 97.4 F L 65 18 116/65 97 02/18/19 07:59 02/18/19 10:39 02/18/19 10:39 02/18/19 10:39 02/18/19 08:00 General NAD Neuro speech is fluid ASSESSMENT AND PLAN: 63yo M with pMH CAD s/p CABG and stents, dyslipidemia, HTN, UC, PVD presented to the ER with dysarthria and ataxic gait and code kebede was initiated. out ot TPA window for treatment with symptoms now reported to be resolving 1. TIA R/O CVA-symptoms resolved. MRI negative for acute CVA. ambulated 200ft with PT. will d/c pletal and start plavix. cont asa and statin. plans to f/u with neurologist in [place]. provided neurologist here incase unable to make appt. 2. HTN- low BP here. will hold imdur on discharge due to low BP's. will need to f/u with cardiology is should be re-started at lower dose. cont metoprolol 3. CAD s/p CABG- cont home medications 4. Dyslipidemia- statin 5. UC- on mesalamine 6. DVT ppx- hep sq 7. d.c home with follow up. discussed medication changes with patient. verbalized understanding and agreement
== END 2019-02-18 13:05 | disposition home or self-care (01) | DRG 69 ==
LOC: JER 07:27 → JERBED 08:40 → J4S 02-18 01:46
PROVIDERS: ADMIT Internal Medicine; ATTEND Internal Medicine
DX: G45.9 Transient cerebral ischemic attack, unspecified (principal); F31.9 Bipolar disorder, unspecified; J44.9 Chronic obstructive pulmonary disease, unspecified; R73.03 Prediabetes; I73.9 Peripheral vascular disease, unspecified; E78.5 Hyperlipidemia, unspecified; R29.703 NIHSS score 3; G47.33 Obstructive sleep apnea (adult) (pediatric); I25.10 Atherosclerotic heart disease of native coronary artery without angina pectoris; Z95.1 Presence of aortocoronary bypass graft
CPT/HCPCS: 36415; 70450-TC; 70551-TC; 71045-TC-FY; 80053; 80061; 82140; 82465; 82550; 82607; 82962; 83036; 83718; 83721; 83735; 84100; 84443; 84478; 84484; 85025; 85610; 85651; 86038; 86850; 86900; 86901; 93005; 93010; 93306-TC; 93880-TC; 97116-GP; 97161-GP; 99285-25; J1644; J7030

== ENCOUNTER 2023-06-27 17:20 | Emergency (ER) | payer OTHER, BC ==
[2023-06-27 17:44] VITALS: BP 133/74; PULSE 71; RESP 18; TEMP 98.1; BMI 28.7
[2023-06-27] MEDS ORDERED: DIPHTH,PERTUSS(ACELL),TET 0.5 ML DISP.SYRIN IM ONE ×2 (17:49→17:56)
== END 2023-06-27 18:05 | disposition home or self-care (01) ==
LOC: FER 17:20
PROC: 0HQGXZZ Repair Left Hand Skin, External Approach (ICD-10-PCS; principal; 2023-06-27)
PROC: 3E0234Z Introduction of Serum, Toxoid and Vaccine into Muscle, Percutaneous Approach (ICD-10-PCS; 2023-06-27)
DX: S61.012A Laceration without foreign body of left thumb without damage to nail, initial encounter (principal); W26.0XXA Contact with knife, initial encounter; Y28.1XXA Contact with knife, undetermined intent, initial encounter; Y93.G3 Activity, cooking and baking; Y92.9 Unspecified place or not applicable
CPT/HCPCS: 12001-25; 90471; 90715; 99282-25